=== PATIENT | female | born 1975 | race Hispanic/Latino ===

== ENCOUNTER → 2018-11-07 | Outpatient (CLI) | payer OTHER ==
--- NOTE | 2018-11-07 14:12 | Diagnostic Imaging Report ---
EXAM: CHEST 2 VIEWS, PA and lateral DATE: 11/07/2018 Time stamp on exam: 1:28 PM INDICATION: Pneumonia COMPARISON: None FINDINGS: LINES/TUBES: None LUNGS: Bibasilar areas of stranding opacities; right side greater than left. PLEURA: Bilateral small pleural effusions; left side greater than right HEART AND MEDIASTINUM: Normal size and contour. BONES AND SOFT TISSUES: No acute findings. 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 Signed by: Dr. Pelon Frias DO on 11/07/2018 2:09 PM
== END ==
LOC: RAD 13:09
PROVIDERS: ATTEND Family Medicine
DX: J18.9 Pneumonia, unspecified organism (principal)
CPT/HCPCS: 71046

== ENCOUNTER 2019-02-13 13:34 | Inpatient (IN) | payer OTHER ==
[~2019-02-13] VITALS: Ht 149.9 cm; Wt 63.7 kg
--- OUTSIDE RECORDS SUMMARY | 2019-02-13 13:37 | XMS REPORT ---
[facility] Address Unknown Phone Unavailable Care Team Providers Care Printing Assistant Name Role Phone [place] SHEETS Unavailable Unavailable Payers Payer Name Policy Type Policy Number Effective Date Expiration Date Problems This patient has no known problems. Allergies, Adverse Reactions, Alerts Allergy Name Allergy Type Status Severity Reaction(s) Onset Date Inactive Date Treating Clinician Comments No Known Allergies DA Active U 2018-10-27 00:00:00 Medications This patient has no known medications. Results Test Description Test Time Test Comments Text Results Atomic Results Result Comments CHEST 2 VIEWS 2018-11-07 14:06:00 [place] [address] Patient Name: HEMANTH ARGUELLO MR #: [id number] : 1975 Age/Sex: 43/F Req #: [id number] Adm Physician: Ordered by: KHRIS HAINES, INDIA Saavedra MD Report #: [id number] Location: [facility] Room/Bed: Procedure: [id number] DX/CHEST 2 VIEWS Exam Date: 11/07/18 Exam Time: 1320 REPORT STATUS: Signed EXAM: CHEST 2 VIEWS, PA and lateral DATE: 11/07/2018 Time stamp on exam: 1:28 PM INDICATION: Pneumonia COMPARISON: None FINDINGS: LINES/TUBES: None LUNGS: Bibasilar areas of stranding opacities; right side greater than left. PLEURA: Bilateral small pleural effusions; left side greater than right HEART AND MEDIASTINUM: Normal size and contour. BONES AND SOFT TISSUES: No acute findings. IMPRESSION: Bibasilar opacities inventory representative of multifocal pneumonia with small pleural effusions. Signed by: Dr. Pelon Sanon DO on 11/07/2018 2:09 PM Dictated By: PELON SANON DO 08 Transcribed By: PRIYA on 11/07/181408 COPY TO: [place] SHEETS CBC W/AUTO DIFF 2018-11-01 07:16:00 WHITE BLOOD CELL (test code=WBC) 9.6 K/mm3 4.5-12.5 RED BLOOD CELL (test code=RBC) 2.56 mill/mm3 3.7-5.2 HEMOGLOBIN (test code=HGB) 7.4 gram/dL 11.5-15.5 HEMATOCRIT (test code=HCT) 24.5 % 36.0-46.0 MEAN CELL VOLUME (test code=MCV) 95.7 fL 80-98 MEAN CELL HGB (test code=MCH) 28.9 picogram 27.0-33.0 MEAN CELL HGB CONCETRATION (test code=MCHC) 30.2 gram/dL 33.0-36.0 RED CELL DISTRIBUTION WIDTH (test code=RDW) 14.1 % 11.6-16.2 RED CELL DISTRIBUTION WIDTH SD (test code=RDW-SD) 48.9 fL 37.0-51.0 PLATELET COUNT (test code=PLT) 234 K/mm3 150-450 MEAN PLATELET VOLUME (test code=MPV) 10.1 fL 6.7-11.0 NEUTROPHIL % (test code=NT%) 70.1 % 39.0-69.0 IMMATURE GRANULOCYTE % (test code=IG%) 0.4 % 0.0-5.0 LYMPHOCYTE % (test code=LY%) 20.5 % 25.0-55.0 MONOCYTE % (test code=MO%) 4.8 % 0.0-10.0 EOSINOPHIL % (test code=EO%) 4.0 % 0.0-5.0 BASOPHIL % (test code=BA%) 0.2 % 0.0-1.0 NUCLEATED RBC % (test code=NRBC%) 0.0 % 0-0 NEUTROPHIL # (test code=NT#) 6.75 K/mm3 1.8-7.7 IMMATURE GRANULOCYTE # (test code=IG#) 0.04 x10 3/uL 0-0.03 LYMPHOCYTE # (test code=LY#) 1.98 K/mm3 1.0-5.0 MONOCYTE # (test code=MO#) 0.46 K/mm3 0-0.8 EOSINOPHIL # (test code=EO#) 0.39 K/mm3 0.0-0.5 BASOPHIL # (test code=BA#) 0.02 K/mm3 0.0-0.2 NUCLEATED RBC # (test code=NRBC#) 0.00 K/mm3 0.0-0.1 BASIC METABOLIC [id number] 06:05:00* Test Item Value Reference Range Comments SODIUM (test code=NA) 145 mmol/L 136-145 POTASSIUM (test code=K) 5.1 mmol/L 3.5-5.1 CHLORIDE (test code=CL) 116.0 mmol/L 98-107 CARBON DIOXIDE (test code=CO2) 20.0 mmol/L 21-32 ANION GAP (test code=GAP) 14.1 10-20 GLUCOSE (test code=GLU) 131 mg/dL 74-106 BLOOD UREA NITROGEN (test code=BUN) 70 mg/dL 7-18 GLOMERULAR FILTRATION RATE (test code=GFR) 10 mL/min >=60 Estimated GFR by using Modified MDRD formula.Chronic kidney disease is defined as either kidney damageor GFR <60 mL/min/1.73 m2 for >3 months. CREATININE (test code=CREAT) 4.60 mg/dL 0.55-1.02 Note change in reference range due to change in reagent. BUN/CREATININE RATIO (test code=BUN/CREA) 15.3 10-20 CALCIUM (test code=CA) 7.1 mg/dL 8.5-10.1 BASIC METABOLIC [id number] 06:01:00* Test Item Value Reference Range Comments SODIUM (test code=NA) 145 mmol/L 136-145 POTASSIUM (test code=K) 5.1 mmol/L 3.5-5.1 CHLORIDE (test code=CL) 116.0 mmol/L 98-107 CARBON DIOXIDE (test code=CO2) mmol/L 21-32 ANION GAP (test code=GAP) 10-20 GLUCOSE (test code=GLU) mg/dL 74-106 BLOOD UREA NITROGEN (test code=BUN) mg/dL 7-18 GLOMERULAR FILTRATION RATE (test code=GFR) mL/min >=60 CREATININE (test code=CREAT) mg/dL 0.55-1.02 BUN/CREATININE RATIO (test code=BUN/CREA) 10-20 CALCIUM (test code=CA) 7.1 mg/dL 8.5-10.1 ANTINUCLEAR ANTIBODIES [id number] 04:11:00* Test Item Value Reference Range Comments XANDER SCREEN (test code=ANASCR) Negative Negative Performed At: [facility] [address] [id number] Mancilla MD Ph:[phone] HEPATITIS B [id number] 04:11:00* Test Item Value Reference Range Comments AB HEPATITIS B SURFACE (test code=HBSAB) Non Reactive () Non Reactive: Inconsistent with immunity, less than 10 mIU/mL Reactive: Consistent with immunity, greater than 9.9 mIU/mLPerformed At: [facility] [address] [id number] Mancilla MD Ph:[phone] At: [facility] [id number] Sanjai MD P h:[phone] AG HEPAT B SURF (test code=HBSAG) Negative Negative HEPATITIS B CORE ANTIBODY,TOT (test code=HBCAB) Negative Negative HEPATITIS B CORE ANTIBODY,IGM (test code=HBCMAB) Negative Negative AG HEPATITIS BE (test code=HBEAG) Negative Negative AB HEPATITIS BE (test code=HBEAB) Negative Negative ACUTE HEPATITIS [id number] 04:11:00* Test Item Value Reference Range Comments AB HEPATITIS A IGM (test code=HAVMAB) Negative Negative AB HEPATITIS C (test code=HCVAB) <0.1 0.0-0.9 INFCE Result Units: s/co ratio Negative: < 0.8 Indeterminate: 0.8 - 0.9 Positive: > 0.9 The CDC recommends that a positive HCV antibody result be followed up with a HCV Nucleic Acid Amplification test ([id number]).Performed At: [facility] [id number] Mancilla MD Ph:[phone] NEUTROPHIL CYTOPLASMIC [id number] 04:11:00* Test Item Value Reference Range Comments AB ANTI-NEUTROPHIL CYTOPLASMIC (test code=NEUTCAB) <1:20 titer Neg:<1:20 AB ANTI-NEUTROPHIL CYTO. P (test code=NEUTCAB-P) <1:20 titer Neg:<1:20 The presence of positive fluorescence exhibiting P-ANCA orC-ANCA patterns alone is not specific for the diagnosis ofWegener's Granulomatosis (WG) or microscopic polyangiitis.Decisions about treatment should not be based solely onANCA IFA results. The International ANCA Group Consensusrecommends follow up testing of positive sera with both IL-3 and MPO-ANCA enzyme immunoassays. As many as 5% serumsamples are positive only by EIA. Ref. AM J Clin [id number];111:507-513. ATYPICAL ANCA (test code=ANCACOM) <1:20 titer Neg:<1:20 The atypical pANCA pattern has been observed in asignificant percentage of patients with ulcerative colitis,primary sclerosing cholangitis and autoimmune hepatitis.Performed At: [address] [id number] Sanjai MD Ph:[phone] AB DNA DOUBLE [id number] 04:11:00* Test Item Value Reference Range Comments AB DNA DOUBLE STRAND (test code=DNADSAB) <1 IU/mL 0-9 Negative <5 Equivocal 5 - 9 Positive >9 ANTINUCLEAR ANTIBODIES [id number] 17:10:00* Test Item Value Reference Range Comments XANDER SCREEN (test code=ANASCR) Negative Negative Performed At: [facility] [id number] Kyle L MD Ph:[phone] HEPATITIS B [id number] 17:10:00* Test Item Value Reference Range Comments AB HEPATITIS B SURFACE (test code=HBSAB) NEGATIVE AG HEPAT B SURF (test code=HBSAG) Index Nonreactive HEPATITIS B CORE ANTIBODY,TOT (test code=HBCAB) NEGATIVE HEPATITIS B CORE ANTIBODY,IGM (test code=HBCMAB) NEGATIVE AG HEPATITIS BE (test code=HBEAG) NEGATIVE AB HEPATITIS BE (test code=HBEAB) NEG ACUTE HEPATITIS [id number] 17:10:00* Test Item Value Reference Range Comments AB HEPATITIS A IGM (test code=HAVMAB) Negative Negative AB HEPATITIS C (test code=HCVAB) <0.1 0.0-0.9 INFCE Result Units: s/co ratio Negative: < 0.8 Indeterminate: 0.8 - 0.9 Positive: > 0.9 The CDC recommends that a positive HCV antibody result be followed up with a HCV Nucleic Acid Amplification test ([id number]).Performed At: [facility] [address] [id number] Jose Alejandro Mancilla MD Ph:[phone] NEUTROPHIL CYTOPLASMIC [id number] 17:10:00* Test Item Value Reference Range Comments AB ANTI-NEUTROPHIL CYTOPLASMIC (test code=NEUTCAB) <1:20 titer Neg:<1:20 AB ANTI-NEUTROPHIL CYTO. P (test code=NEUTCAB-P) <1:20 titer Neg:<1:20 The presence of positive fluorescence exhibiting P-ANCA orC-ANCA patterns alone is not specific for the diagnosis ofWegener's Granulomatosis (WG) or microscopic polyangiitis.Decisions about treatment should not be based solely onANCA IFA results. The International ANCA Group Consensusrecommends follow up testing of positive sera with both IL-3 and MPO-ANCA enzyme immunoassays. As many as 5% serumsamples are positive only by EIA. Ref. AM J Clin Rjobve1023;111:507-513. ATYPICAL ANCA (test code=ANCACOM) <1:20 titer Neg:<1:20 The atypical pANCA pattern has been observed in asignificant percentage of patients with ulcerative colitis,primary sclerosing cholangitis and autoimmune hepatitis.Performed At: [facility] [id number] Sanjai MD Ph:[phone] AB DNA DOUBLE [id number] 17:10:00* Test Item Value Reference Range Comments AB DNA DOUBLE STRAND (test code=DNADSAB) <1 IU/mL 0-9 Negative <5 Equivocal 5 - 9 Positive >9 - USG NDL PLACEMENT (Bxg/Asp)2018-10-31 13:38:00 Name: HEMANTH ARGUELLO [facility] : 1975 Age/S: 43 / F [address] Unit #: [id number] Loc: [place] [address] Phys: Charan Phillip MD Acct: [id number] Dis Date: Status: ADM IN PHONE #: [phone] Exam Date: 10/31/2018 1230 FAX #: [phone] Reason: RENAL FAILURE. EXAMS: CPT CODE: [id number] USG NDL PLACEMENT (Bxg/Asp) 77040 REASON FOR EXAM:Acute renal failure PROCEDURE: Ultrasound guided right kidney biopsy Dlrg-hj-fefa approximate procedure time is 45 minutes FINDINGS: After informed consent was obtained, the patient was brought to special procedures and placed supine on the table. The right flank was prepped was draped in the usual fashion. All elements of maximal sterile barrier techniques were applied. Ultrasound demonstrates patency of the basilic vein. The right kidney measured 10.9 x 4.2 cm. Under direct ultrasound guidance, a guiding needle was advanced into the right renal cortex (inferior pole). 3 passes were made with a 20-gauge biopsy gun. The pathologist (Dr. Veras) was present on site for assessment of samples MEDICATIONS: 1 mg of Versed, 50 mcg of fentanyl COMPLICATIONS: None Blood loss: Less than 5 mL IMPRESSION: Technically successful ultrasound-guided core biopsy of a right renal cortex at 1337 Reported and signed by: Charan Phillip M.D. CC: Ariane Priest MD; India Sheets MD Technologist: ONELIA HANNAH RT(R),RDMS Trnakb Date/Time: 10/31/2018 (0662) oMdesto Orig Print D/T: S: 10/31/2018 (6397) Probe: PAGE 1 Signed Report UR SMEAR EOSINOPHIL COUNT 2018-10-31 12:13:00* Test Item Value Reference Range Comments UR SMEAR EOSINOPHIL COUNT (test code=EOSCTU) NONE SEEN per HPF NONE SEEN UR ELECTROPHORESIS VAIBHAV [id number] 12:13:00* Test Item Value Reference Range Comments IMMUNOFIXATION URINE (test code=IMMFIXU) SCREEN () An apparent normal immunofixation pattern. UR TOTAL PROTEIN (test code=PROTEU) 1089.4 mg/dL Not Estab. Results confirmed ondilution. UR SVRCV-3-POVFXZCH (test code=A1GU) 7.8 % () UR UQVMC-1-PVXCQEUS (test code=A2GU) 9.1 % () UR BETA GLOBULIN (test code=BGU) 13.5 % () UR GAMMA GLOBULIN (test code=GGU) 9.5 % () MONOCLONAL SPIKE (test code=MONOSPIKE) Not Observed % Not Observed UR ALBUMIN QUANT (test code=ALBU) 60.0 % () COMPLEMENT [id number] 12:13:00* Test Item Value Reference Range Comments COMPLEMENT C3 (test code=COMC3) mg/dL COMPLEMENT [id number] 12:13:00* Test Item Value Reference Range Comments COMPLEMENT C4 (test code=COMC4) 52 mg/dL 14-44 COMPLEMENT [id number] 12:13:00* Test Item Value Reference Range Comments COMPLEMENT C3 (test code=COMC3) 143 mg/dL 82-167 Performed At: [facility] [address] [id number] Kyle L MD Ph:[phone] COMPLEMENT [id number] 12:13:00* Test Item Value Reference Range Comments COMPLEMENT C4 (test code=COMC4) 52 mg/dL 14-44 ANTINUCLEAR ANTIBODIES [id number] 08:18:00* Test Item Value Reference Range Comments XANDER SCREEN (test code=ANASCR) HEPATITIS B [id number] 08:18:00* Test Item Value Reference Range Comments AB HEPATITIS B SURFACE (test code=HBSAB) NEGATIVE AG HEPAT B SURF (test code=HBSAG) Index Nonreactive HEPATITIS B CORE ANTIBODY,TOT (test code=HBCAB) NEGATIVE HEPATITIS B CORE ANTIBODY,IGM (test code=HBCMAB) NEGATIVE AG HEPATITIS BE (test code=HBEAG) NEGATIVE AB HEPATITIS BE (test code=HBEAB) NEG ACUTE HEPATITIS [id number] 08:18:00* Test Item Value Reference Range Comments AB HEPATITIS A IGM (test code=HAVMAB) Negative Negative AB HEPATITIS C (test code=HCVAB) <0.1 0.0-0.9 INFCE Result Units: s/co ratio Negative: < 0.8 Indeterminate: 0.8 - 0.9 Positive: > 0.9 The CDC recommends that a positive HCV antibody result be followed up with a HCV Nucleic Acid Amplification test ([id number]).Performed At: [facility] [address] [id number] Mancilla MD Ph:[phone] NEUTROPHIL CYTOPLASMIC [id number] 08:18:00* Test Item Value Reference Range Comments AB ANTI-NEUTROPHIL CYTOPLASMIC (test code=NEUTCAB) <1:20 AB ANTI-NEUTROPHIL CYTO. P (test code=NEUTCAB-P) <1:20 ATYPICAL ANCA (test code=ANCACOM) <1:20 AB DNA DOUBLE [id number] 08:18:00* Test Item Value Reference Range Comments AB DNA DOUBLE STRAND (test code=DNADSAB) <1 IU/mL 0-9 Negative <5 Equivocal 5 - 9 Positive >9 ANTINUCLEAR ANTIBODIES [id number] 08:18:00* Test Item Value Reference Range Comments XANDER SCREEN (test code=ANASCR) Negative Negative Performed At: [facility] [address] [place], [place] [id number] Mancilla MD Ph:[phone] HEPATITIS B [id number] 08:18:00* Test Item Value Reference Range Comments AB HEPATITIS B SURFACE (test code=HBSAB) NEGATIVE AG HEPAT B SURF (test code=HBSAG) Index Nonreactive HEPATITIS B CORE ANTIBODY,TOT (test code=HBCAB) NEGATIVE HEPATITIS B CORE ANTIBODY,IGM (test code=HBCMAB) NEGATIVE AG HEPATITIS BE (test code=HBEAG) NEGATIVE AB HEPATITIS BE (test code=HBEAB) NEG ACUTE HEPATITIS [id number] 08:18:00* Test Item Value Reference Range Comments AB HEPATITIS A IGM (test code=HAVMAB) Negative Negative AB HEPATITIS C (test code=HCVAB) <0.1 0.0-0.9 INFCE Result Units: s/co ratio Negative: < 0.8 Indeterminate: 0.8 - 0.9 Positive: > 0.9 The CDC recommends that a positive HCV antibody result be followed up with a HCV Nucleic Acid Amplification test ([id number]).Performed At: [address] [id number] Kyle L MD Ph:[phone] NEUTROPHIL CYTOPLASMIC [id number] 08:18:00* Test Item Value Reference Range Comments AB ANTI-NEUTROPHIL CYTOPLASMIC (test code=NEUTCAB) <1:20 AB ANTI-NEUTROPHIL CYTO. P (test code=NEUTCAB-P) <1:20 ATYPICAL ANCA (test code=ANCACOM) <1:20 AB DNA DOUBLE [id number] 08:18:00* Test Item Value Reference Range Comments AB DNA DOUBLE STRAND (test code=DNADSAB) <1 IU/mL 0-9 Negative <5 Equivocal 5 - 9 Positive >9 AB HEPATITIS [id number] 07:27:00* Test Item Value Reference Range Comments AB HEPATITIS C (test code=HCVAB) <0.1 0.0-0.9 INFCE Result Units: s/co ratio Negative: < 0.8 Indeterminate: 0.8 - 0.9 Positive: > 0.9 The CDC recommends that a positive HCV antibody result be followed up with a HCV Nucleic Acid Amplification test ([id number]).Performed At: [place] [address] [place], [place] [id number] Kyle L MD Ph:[phone] AB HIV 1 07:27:00* Test Item Value Reference Range Comments AB HIV 1 2 (test code=VUA36NC) Nonreactive NonReactive It is recognized that currently available assays for thedetection of antibodies to HIV-1 and/or HIV-2 may notdetect all infected individuals. A negative test result doesnot exclude the possibility of exposure to or infection withHIV. HIV antibodies may be undetectable in some stages ofthe infection and in some clinical conditions. ANTINUCLEAR ANTIBODIES [id number] 07:27:00* Test Item Value Reference Range Comments XANDER SCREEN (test code=ANASCR) HEPATITIS B [id number] 07:27:00* Test Item Value Reference Range Comments AB HEPATITIS B SURFACE (test code=HBSAB) NEGATIVE AG HEPAT B SURF (test code=HBSAG) Index Nonreactive HEPATITIS B CORE ANTIBODY,TOT (test code=HBCAB) NEGATIVE HEPATITIS B CORE ANTIBODY,IGM (test code=HBCMAB) NEGATIVE AG HEPATITIS BE (test code=HBEAG) NEGATIVE AB HEPATITIS BE (test code=HBEAB) NEG ACUTE HEPATITIS [id number] 07:27:00* Test Item Value Reference Range Comments AB HEPATITIS A IGM (test code=HAVMAB) Negative Negative AB HEPATITIS C (test code=HCVAB) <0.1 0.0-0.9 INFCE Result Units: s/co ratio Negative: < 0.8 Indeterminate: 0.8 - 0.9 Positive: > 0.9 The CDC recommends that a positive HCV antibody result be followed up with a HCV Nucleic Acid Amplification test ([id number]).Performed At: [facility] [address] [id number] Jose Alejandro Mancilla MD Ph:[phone] NEUTROPHIL CYTOPLASMIC [id number] 07:27:00* Test Item Value Reference Range Comments AB ANTI-NEUTROPHIL CYTOPLASMIC (test code=NEUTCAB) <1:20 AB ANTI-NEUTROPHIL CYTO. P (test code=NEUTCAB-P) <1:20 ATYPICAL ANCA (test code=ANCACOM) <1:20 AB DNA DOUBLE [id number] 07:27:00* Test Item Value Reference Range Comments AB DNA DOUBLE STRAND (test code=DNADSAB) IUnit/mL 0-9 CBC W/AUTO [id number] 06:18:00* Test Item Value Reference Range Comments WHITE BLOOD CELL (test code=WBC) 7.4 K/mm3 4.5-12.5 RED BLOOD CELL (test code=RBC) 2.77 mill/mm3 3.7-5.2 HEMOGLOBIN (test code=HGB) 8.1 gram/dL 11.5-15.5 HEMATOCRIT (test code=HCT) 26.1 % 36.0-46.0 MEAN CELL VOLUME (test code=MCV) 94.2 fL 80-98 MEAN CELL HGB (test code=MCH) 29.2 picogram 27.0-33.0 MEAN CELL HGB CONCETRATION (test code=MCHC) 31.0 gram/dL 33.0-36.0 RED CELL DISTRIBUTION WIDTH (test code=RDW) 14.0 % 11.6-16.2 RED CELL DISTRIBUTION WIDTH SD (test code=RDW-SD) 48.0 fL 37.0-51.0 PLATELET COUNT (test code=PLT) 222 K/mm3 150-450 MEAN PLATELET VOLUME (test code=MPV) 10.1 fL 6.7-11.0 NEUTROPHIL % (test code=NT%) 59.1 % 39.0-69.0 IMMATURE GRANULOCYTE % (test code=IG%) 0.4 % 0.0-5.0 LYMPHOCYTE % (test code=LY%) 25.6 % 25.0-55.0 MONOCYTE % (test code=MO%) 7.3 % 0.0-10.0 EOSINOPHIL % (test code=EO%) 7.3 % 0.0-5.0 BASOPHIL % (test code=BA%) 0.3 % 0.0-1.0 NUCLEATED RBC % (test code=NRBC%) 0.0 % 0-0 NEUTROPHIL # (test code=NT#) 4.34 K/mm3 1.8-7.7 IMMATURE GRANULOCYTE # (test code=IG#) 0.03 x10 3/uL 0-0.03 LYMPHOCYTE # (test code=LY#) 1.88 K/mm3 1.0-5.0 MONOCYTE # (test code=MO#) 0.54 K/mm3 0-0.8 EOSINOPHIL # (test code=EO#) 0.54 K/mm3 0.0-0.5 BASOPHIL # (test code=BA#) 0.02 K/mm3 0.0-0.2 NUCLEATED RBC # (test code=NRBC#) 0.00 K/mm3 0.0-0.1 BASIC METABOLIC [id number] 06:18:00* Test Item Value Reference Range Comments SODIUM (test code=NA) 145 mmol/L 136-145 POTASSIUM (test code=K) 4.6 mmol/L 3.5-5.1 CHLORIDE (test code=CL) 116.0 mmol/L 98-107 CARBON DIOXIDE (test code=CO2) 19.0 mmol/L 21-32 ANION GAP (test code=GAP) 14.6 10-20 GLUCOSE (test code=GLU) 154 mg/dL 74-106 BLOOD UREA NITROGEN (test code=BUN) 62 mg/dL 7-18 GLOMERULAR FILTRATION RATE (test code=GFR) 12 mL/min >=60 Estimated GFR by using Modified MDRD formula.Chronic kidney disease is defined as either kidney damageor GFR <60 mL/min/1.73 m2 for >3 months. CREATININE (test code=CREAT) 4.20 mg/dL 0.55-1.02 Note change in reference range due to change in reagent. BUN/CREATININE RATIO (test code=BUN/CREA) 14.7 10-20 CALCIUM (test code=CA) 6.8 mg/dL 8.5-10.1 BASIC METABOLIC [id number] 06:12:00* Test Item Value Reference Range Comments SODIUM (test code=NA) 145 mmol/L 136-145 POTASSIUM (test code=K) 4.6 mmol/L 3.5-5.1 CHLORIDE (test code=CL) 116.0 mmol/L 98-107 CARBON DIOXIDE (test code=CO2) mmol/L 21-32 ANION GAP (test code=GAP) 10-20 GLUCOSE (test code=GLU) mg/dL 74-106 BLOOD UREA NITROGEN (test code=BUN) mg/dL 7-18 GLOMERULAR FILTRATION RATE (test code=GFR) mL/min >=60 CREATININE (test code=CREAT) mg/dL 0.55-1.02 BUN/CREATININE RATIO (test code=BUN/CREA) 10-20 CALCIUM (test code=CA) mg/dL 8.5-10.1 FE W/TOTAL IRON BINDING CAP.2018-10-30 11:49:00* Test Item Value Reference Range Comments SERUM IRON (test code=IRON) 56 ug/dL 50-175 TOTAL IRON BINDING CAPACITY (test code=TIBC) 192 mcg/dL 250-450 IRON SATURATION (test code=FESAT) 29.17 % 13-45 [id number] 11:49:00* Test Item Value Reference Range Comments FERRITIN (test code=INOCENTE) 65 ng/mL 8-388 CBC W/AUTO [id number] 09:57:00* Test Item Value Reference Range Comments WHITE BLOOD CELL (test code=WBC) 7.4 K/mm3 4.5-12.5 RED BLOOD CELL (test code=RBC) 2.89 mill/mm3 3.7-5.2 HEMOGLOBIN (test code=HGB) 8.4 gram/dL 11.5-15.5 HEMATOCRIT (test code=HCT) 26.9 % 36.0-46.0 MEAN CELL VOLUME (test code=MCV) 93.1 fL 80-98 MEAN CELL HGB (test code=MCH) 29.1 picogram 27.0-33.0 MEAN CELL HGB CONCETRATION (test code=MCHC) 31.2 gram/dL 33.0-36.0 RED CELL DISTRIBUTION WIDTH (test code=RDW) 14.2 % 11.6-16.2 RED CELL DISTRIBUTION WIDTH SD (test code=RDW-SD) 47.8 fL 37.0-51.0 PLATELET COUNT (test code=PLT) 242 K/mm3 150-450 MEAN PLATELET VOLUME (test code=MPV) 10.4 fL 6.7-11.0 NEUTROPHIL % (test code=NT%) 61.2 % 39.0-69.0 IMMATURE GRANULOCYTE % (test code=IG%) 0.4 % 0.0-5.0 LYMPHOCYTE % (test code=LY%) 25.1 % 25.0-55.0 MONOCYTE % (test code=MO%) 6.5 % 0.0-10.0 EOSINOPHIL % (test code=EO%) 6.5 % 0.0-5.0 BASOPHIL % (test code=BA%) 0.3 % 0.0-1.0 NUCLEATED RBC % (test code=NRBC%) 0.0 % 0-0 NEUTROPHIL # (test code=NT#) 4.52 K/mm3 1.8-7.7 IMMATURE GRANULOCYTE # (test code=IG#) 0.03 x10 3/uL 0-0.03 LYMPHOCYTE # (test code=LY#) 1.85 K/mm3 1.0-5.0 MONOCYTE # (test code=MO#) 0.48 K/mm3 0-0.8 EOSINOPHIL # (test code=EO#) 0.48 K/mm3 0.0-0.5 BASOPHIL # (test code=BA#) 0.02 K/mm3 0.0-0.2 NUCLEATED RBC # (test code=NRBC#) 0.00 K/mm3 0.0-0.1 MANUAL DIFF REQUIRED (test code=MDIFF) NO BASIC METABOLIC [id number] 08:32:00* Test Item Value Reference Range Comments SODIUM (test code=NA) 143 mmol/L 136-145 POTASSIUM (test code=K) 4.6 mmol/L 3.5-5.1 CHLORIDE (test code=CL) 115.0 mmol/L 98-107 CARBON DIOXIDE (test code=CO2) 19.0 mmol/L 21-32 ANION GAP (test code=GAP) 13.6 10-20 GLUCOSE (test code=GLU) 163 mg/dL 74-106 BLOOD UREA NITROGEN (test code=BUN) 58 mg/dL 7-18 GLOMERULAR FILTRATION RATE (test code=GFR) 11 mL/min >=60 Estimated GFR by using Modified MDRD formula.Chronic kidney disease is defined as either kidney damageor GFR <60 mL/min/1.73 m2 for >3 months. CREATININE (test code=CREAT) 4.30 mg/dL 0.55-1.02 Note change in reference range due to change in reagent. BUN/CREATININE RATIO (test code=BUN/CREA) 13.6 10-20 CALCIUM (test code=CA) 6.4 mg/dL 8.5-10.1 Results called to [id number] by NEERAJ 10/30/18 0829Critical results verified and read back by Nurse? Y [id number] 08:32:00* Test Item Value Reference Range Comments PHOSPHORUS (test code=PHOS) 5.8 mg/dL 2.5-4.9 CALCIUM [id number] 08:32:00* Test Item Value Reference Range Comments CALCIUM IONIZED (test code=BRIONNA) 0.99 mmol/L 1.12-1.32 BASIC METABOLIC [id number] 08:26:00* Test Item Value Reference Range Comments SODIUM (test code=NA) 143 mmol/L 136-145 POTASSIUM (test code=K) 4.6 mmol/L 3.5-5.1 CHLORIDE (test code=CL) 115.0 mmol/L 98-107 CARBON DIOXIDE (test code=CO2) mmol/L 21-32 ANION GAP (test code=GAP) 10-20 GLUCOSE (test code=GLU) mg/dL 74-106 BLOOD UREA NITROGEN (test code=BUN) mg/dL 7-18 GLOMERULAR FILTRATION RATE (test code=GFR) mL/min >=60 CREATININE (test code=CREAT) mg/dL 0.55-1.02 BUN/CREATININE RATIO (test code=BUN/CREA) 10-20 CALCIUM (test code=CA) mg/dL 8.5-10.1 [id number] 08:26:00* Test Item Value Reference Range Comments PHOSPHORUS (test code=PHOS) mg/dL 2.5-4.9 CALCIUM [id number] 08:26:00* Test Item Value Reference Range Comments CALCIUM IONIZED (test code=BRIONNA) 0.99 mmol/L 1.12-1.32 BASIC METABOLIC [id number] 08:14:00* Test Item Value Reference Range Comments SODIUM (test code=NA) 143 mmol/L 136-145 POTASSIUM (test code=K) 4.6 mmol/L 3.5-5.1 CHLORIDE (test code=CL) 115.0 mmol/L 98-107 CARBON DIOXIDE (test code=CO2) mmol/L 21-32 ANION GAP (test code=GAP) 10-20 GLUCOSE (test code=GLU) mg/dL 74-106 BLOOD UREA NITROGEN (test code=BUN) mg/dL 7-18 GLOMERULAR FILTRATION RATE (test code=GFR) mL/min >=60 CREATININE (test code=CREAT) mg/dL 0.55-1.02 BUN/CREATININE RATIO (test code=BUN/CREA) 10-20 CALCIUM (test code=CA) mg/dL 8.5-10.1 [id number] 08:14:00* Test Item Value Reference Range Comments PHOSPHORUS (test code=PHOS) mg/dL 2.5-4.9 CALCIUM [id number] 08:14:00* Test Item Value Reference Range Comments CALCIUM IONIZED (test code=BRIONNA) mmol/L 1.12-1.32 CBC W/AUTO [id number] 13:29:00* Test Item Value Reference Range Comments WHITE BLOOD CELL (test code=WBC) 7.4 K/mm3 4.5-12.5 RED BLOOD CELL (test code=RBC) 2.96 mill/mm3 3.7-5.2 HEMOGLOBIN (test code=HGB) 8.5 gram/dL 11.5-15.5 HEMATOCRIT (test code=HCT) 28.4 % 36.0-46.0 MEAN CELL VOLUME (test code=MCV) 95.9 fL 80-98 MEAN CELL HGB (test code=MCH) 28.7 picogram 27.0-33.0 MEAN CELL HGB CONCETRATION (test code=MCHC) 29.9 gram/dL 33.0-36.0 RED CELL DISTRIBUTION WIDTH (test code=RDW) 14.5 % 11.6-16.2 RED CELL DISTRIBUTION WIDTH SD (test code=RDW-SD) 50.6 fL 37.0-51.0 PLATELET COUNT (test code=PLT) 242 K/mm3 150-450 MEAN PLATELET VOLUME (test code=MPV) 10.3 fL 6.7-11.0 NEUTROPHIL % (test code=NT%) 61.6 % 39.0-69.0 IMMATURE GRANULOCYTE % (test code=IG%) 0.3 % 0.0-5.0 LYMPHOCYTE % (test code=LY%) 24.2 % 25.0-55.0 MONOCYTE % (test code=MO%) 6.6 % 0.0-10.0 EOSINOPHIL % (test code=EO%) 6.9 % 0.0-5.0 BASOPHIL % (test code=BA%) 0.4 % 0.0-1.0 NUCLEATED RBC % (test code=NRBC%) 0.0 % 0-0 NEUTROPHIL # (test code=NT#) 4.59 K/mm3 1.8-7.7 IMMATURE GRANULOCYTE # (test code=IG#) 0.02 x10 3/uL 0-0.03 LYMPHOCYTE # (test code=LY#) 1.80 K/mm3 1.0-5.0 MONOCYTE # (test code=MO#) 0.49 K/mm3 0-0.8 EOSINOPHIL # (test code=EO#) 0.51 K/mm3 0.0-0.5 BASOPHIL # (test code=BA#) 0.03 K/mm3 0.0-0.2 NUCLEATED RBC # (test code=NRBC#) 0.00 K/mm3 0.0-0.1 MANUAL DIFF REQUIRED (test code=MDIFF) NO, ONLY SCAN NEEDED DIFFERENTIAL [id number] 13:29:00* Test Item Value Reference Range Comments STAIN ACCEPTABILITY (test code=STN ACCEPTABLE) STAIN ACCEPTABLE HYPOCHROMIA (test code=HYPO) 1+ POIKILOCYTOSIS (test code=POIK) 1+ ANISOCYTOSIS (test code=ANISO) 1+ PLATELET ESTIMATE (test code=PLTEST) ADEQUATE PLATELET MORPHOLOGY (test code=PLTMORPH) NORMAL CALCIUM [id number] 08:44:00* Test Item Value Reference Range Comments CALCIUM IONIZED (test code=BRIONNA) 1.00 mmol/L 1.12-1.32 COMMENTS TO SPINNERET CLEANER: DO ON BLOOD IN LAB FROM THIS MORNINGSPECIMEN COMMENTS: DO ON BLOOD IN LAB FROM THIS MORNINGPROTHROMBIN TIME 2018-10-29 07:57:00* Test Item Value Reference Range Comments PROTHROMBIN TIME PATIENT (test code=PTP) 12.6 seconds 9.0-14.0 INTERNATIONAL NORMAL RATIO (test code=INR) 1.0 0.8-1.2 The therapeutic range for oral anticoagulant therapy formost indications is an international normalized ratio (INR)of between 2.0 and 3.0. The recommended therapeutic INRrange for various clinical situations is listed below: Clinical Situation INR range Pulmonary e mbolism treatment (2.0-3.0)Venous thrombosis treatmentVenous thrombosis prophylaxis (high risk surgery)Prevention of systemic embolism from: Acute myocardial infarction Valvular heart disease Atrial fibrillation Mechanical prosthetic heart valves (2.5-3.5) IS PATIENT ON ANTICOAGULANTS? NTHROMBOPLASTIN TIME [id number] 07:57:00* Test Item Value Reference Range Comments THROMBOPLASTIN TIME PARTIAL (test code=PTT) 32.3 seconds 25.0-36.5 IS PATIENT ON ANTICOAGULANTS? NBASIC METABOLIC [id number] 07:34:00* Test Item Value Reference Range Comments SODIUM (test code=NA) 145 mmol/L 136-145 POTASSIUM (test code=K) 4.3 mmol/L 3.5-5.1 CHLORIDE (test code=CL) 116.0 mmol/L 98-107 CARBON DIOXIDE (test code=CO2) 19.0 mmol/L 21-32 ANION GAP (test code=GAP) 14.3 10-20 GLUCOSE (test code=GLU) 179 mg/dL 74-106 BLOOD UREA NITROGEN (test code=BUN) 55 mg/dL 7-18 GLOMERULAR FILTRATION RATE (test code=GFR) 12 mL/min >=60 Estimated GFR by using Modified MDRD formula.Chronic kidney disease is defined as either kidney damageor GFR <60 mL/min/1.73 m2 for >3 months. CREATININE (test code=CREAT) 4.20 mg/dL 0.55-1.02 Note change in reference range due to change in reagent. BUN/CREATININE RATIO (test code=BUN/CREA) 13.0 10-20 CALCIUM (test code=CA) 6.3 mg/dL 8.5-10.1 Results called to [id number] by JENNIFER 10/29/18 0733Critical results verified and read back by Nurse? Y HEPATIC FUNCTION [id number] 07:34:00* Test Item Value Reference Range Comments TOTAL PROTEIN (test code=PROT) 5.4 gram/dL 6.4-8.2 ALBUMIN (test code=ALB) 1.7 g/dL 3.4-5.0 GLOBULIN (test code=GLOB) 3.7 gram/dL 2.7-4.2 ALBUMIN/GLOBULIN RATIO (test code=A/G) 0.5 0.75-1.50 BILIRUBIN TOTAL (test code=BILT) 0.20 mg/dL 0.0-1.0 BILIRUBIN DIRECT (test code=BILD) 0.06 mg/dL 0.0-0.20 SGOT/AST (test code=AST) 11 IUnit/L 15-37 SGPT/ALT (test code=ALT) 12 IUnit/L 12-78 ALKALINE PHOSPHATASE TOTAL (test code=ALKP) 68 IUnit/L 45-117 Note change in reference range due to change in reagent. [id number] 07:34:00* Test Item Value Reference Range Comments PHOSPHORUS (test code=PHOS) 5.7 mg/dL 2.5-4.9 [id number] 07:34:00* Test Item Value Reference Range Comments MAGNESIUM (test code=MAG) 2.1 mg/dL 1.8-2.4 CBC W/AUTO [id number] 07:21:00* Test Item Value Reference Range Comments WHITE BLOOD CELL (test code=WBC) 7.4 K/mm3 4.5-12.5 RED BLOOD CELL (test code=RBC) 2.96 mill/mm3 3.7-5.2 HEMOGLOBIN (test code=HGB) 8.5 gram/dL 11.5-15.5 HEMATOCRIT (test code=HCT) 28.4 % 36.0-46.0 MEAN CELL VOLUME (test code=MCV) 95.9 fL 80-98 MEAN CELL HGB (test code=MCH) 28.7 picogram 27.0-33.0 MEAN CELL HGB CONCETRATION (test code=MCHC) 29.9 gram/dL 33.0-36.0 RED CELL DISTRIBUTION WIDTH (test code=RDW) 14.5 % 11.6-16.2 RED CELL DISTRIBUTION WIDTH SD (test code=RDW-SD) 50.6 fL 37.0-51.0 PLATELET COUNT (test code=PLT) 242 K/mm3 150-450 MEAN PLATELET VOLUME (test code=MPV) 10.3 fL 6.7-11.0 NEUTROPHIL % (test code=NT%) 61.6 % 39.0-69.0 IMMATURE GRANULOCYTE % (test code=IG%) 0.3 % 0.0-5.0 LYMPHOCYTE % (test code=LY%) 24.2 % 25.0-55.0 MONOCYTE % (test code=MO%) 6.6 % 0.0-10.0 EOSINOPHIL % (test code=EO%) 6.9 % 0.0-5.0 BASOPHIL % (test code=BA%) 0.4 % 0.0-1.0 NUCLEATED RBC % (test code=NRBC%) 0.0 % 0-0 NEUTROPHIL # (test code=NT#) 4.59 K/mm3 1.8-7.7 IMMATURE GRANULOCYTE # (test code=IG#) 0.02 x10 3/uL 0-0.03 LYMPHOCYTE # (test code=LY#) 1.80 K/mm3 1.0-5.0 MONOCYTE # (test code=MO#) 0.49 K/mm3 0-0.8 EOSINOPHIL # (test code=EO#) 0.51 K/mm3 0.0-0.5 BASOPHIL # (test code=BA#) 0.03 K/mm3 0.0-0.2 NUCLEATED RBC # (test code=NRBC#) 0.00 K/mm3 0.0-0.1 MANUAL DIFF REQUIRED (test code=MDIFF) NO, ONLY SCAN NEEDED DIFFERENTIAL [id number] 07:21:00* Test Item Value Reference Range Comments STAIN ACCEPTABILITY (test code=STN ACCEPTABLE) CABOT RINGS (test code=CAB) MORPHOLOGY COMMENT (test code=MOC) PLATELET ESTIMATE (test code=PLTEST) PLATELET MORPHOLOGY (test code=PLTMORPH) CBC W/AUTO [id number] 07:21:00* Test Item Value Reference Range Comments WHITE BLOOD CELL (test code=WBC) 7.4 K/mm3 4.5-12.5 RED BLOOD CELL (test code=RBC) 2.96 mill/mm3 3.7-5.2 HEMOGLOBIN (test code=HGB) 8.5 gram/dL 11.5-15.5 HEMATOCRIT (test code=HCT) 28.4 % 36.0-46.0 MEAN CELL VOLUME (test code=MCV) 95.9 fL 80-98 MEAN CELL HGB (test code=MCH) 28.7 picogram 27.0-33.0 MEAN CELL HGB CONCETRATION (test code=MCHC) 29.9 gram/dL 33.0-36.0 RED CELL DISTRIBUTION WIDTH (test code=RDW) 14.5 % 11.6-16.2 RED CELL DISTRIBUTION WIDTH SD (test code=RDW-SD) 50.6 fL 37.0-51.0 PLATELET COUNT (test code=PLT) 242 K/mm3 150-450 MEAN PLATELET VOLUME (test code=MPV) 10.3 fL 6.7-11.0 NEUTROPHIL % (test code=NT%) 61.6 % 39.0-69.0 IMMATURE GRANULOCYTE % (test code=IG%) 0.3 % 0.0-5.0 LYMPHOCYTE % (test code=LY%) 24.2 % 25.0-55.0 MONOCYTE % (test code=MO%) 6.6 % 0.0-10.0 EOSINOPHIL % (test code=EO%) 6.9 % 0.0-5.0 BASOPHIL % (test code=BA%) 0.4 % 0.0-1.0 NUCLEATED RBC % (test code=NRBC%) 0.0 % 0-0 NEUTROPHIL # (test code=NT#) 4.59 K/mm3 1.8-7.7 IMMATURE GRANULOCYTE # (test code=IG#) 0.02 x10 3/uL 0-0.03 LYMPHOCYTE # (test code=LY#) 1.80 K/mm3 1.0-5.0 MONOCYTE # (test code=MO#) 0.49 K/mm3 0-0.8 EOSINOPHIL # (test code=EO#) 0.51 K/mm3 0.0-0.5 BASOPHIL # (test code=BA#) 0.03 K/mm3 0.0-0.2 NUCLEATED RBC # (test code=NRBC#) 0.00 K/mm3 0.0-0.1 MANUAL DIFF REQUIRED (test code=MDIFF) NO, ONLY SCAN NEEDED DIFFERENTIAL [id number] 07:21:00* Test Item Value Reference Range Comments STAIN ACCEPTABILITY (test code=STN ACCEPTABLE) CABOT RINGS (test code=CAB) MORPHOLOGY COMMENT (test code=MOC) PLATELET ESTIMATE (test code=PLTEST) PLATELET MORPHOLOGY (test code=PLTMORPH) CBC W/AUTO [id number] 07:21:00* Test Item Value Reference Range Comments WHITE BLOOD CELL (test code=WBC) 7.4 K/mm3 4.5-12.5 RED BLOOD CELL (test code=RBC) 2.96 mill/mm3 3.7-5.2 HEMOGLOBIN (test code=HGB) 8.5 gram/dL 11.5-15.5 HEMATOCRIT (test code=HCT) 28.4 % 36.0-46.0 MEAN CELL VOLUME (test code=MCV) 95.9 fL 80-98 MEAN CELL HGB (test code=MCH) 28.7 picogram 27.0-33.0 MEAN CELL HGB CONCETRATION (test code=MCHC) 29.9 gram/dL 33.0-36.0 RED CELL DISTRIBUTION WIDTH (test code=RDW) 14.5 % 11.6-16.2 RED CELL DISTRIBUTION WIDTH SD (test code=RDW-SD) 50.6 fL 37.0-51.0 PLATELET COUNT (test code=PLT) 242 K/mm3 150-450 MEAN PLATELET VOLUME (test code=MPV) 10.3 fL 6.7-11.0 NEUTROPHIL % (test code=NT%) 61.6 % 39.0-69.0 IMMATURE GRANULOCYTE % (test code=IG%) 0.3 % 0.0-5.0 LYMPHOCYTE % (test code=LY%) 24.2 % 25.0-55.0 MONOCYTE % (test code=MO%) 6.6 % 0.0-10.0 EOSINOPHIL % (test code=EO%) 6.9 % 0.0-5.0 BASOPHIL % (test code=BA%) 0.4 % 0.0-1.0 NUCLEATED RBC % (test code=NRBC%) 0.0 % 0-0 NEUTROPHIL # (test code=NT#) 4.59 K/mm3 1.8-7.7 IMMATURE GRANULOCYTE # (test code=IG#) 0.02 x10 3/uL 0-0.03 LYMPHOCYTE # (test code=LY#) 1.80 K/mm3 1.0-5.0 MONOCYTE # (test code=MO#) 0.49 K/mm3 0-0.8 EOSINOPHIL # (test code=EO#) 0.51 K/mm3 0.0-0.5 BASOPHIL # (test code=BA#) 0.03 K/mm3 0.0-0.2 NUCLEATED RBC # (test code=NRBC#) 0.00 K/mm3 0.0-0.1 MANUAL DIFF REQUIRED (test code=MDIFF) NO, ONLY SCAN NEEDED DIFFERENTIAL [id number] 07:21:00* Test Item Value Reference Range Comments STAIN ACCEPTABILITY (test code=STN ACCEPTABLE) MORPHOLOGY COMMENT (test code=MOC) PLATELET ESTIMATE (test code=PLTEST) PLATELET MORPHOLOGY (test code=PLTMORPH) CBC W/AUTO [id number] 07:21:00* Test Item Value Reference Range Comments WHITE BLOOD CELL (test code=WBC) 7.4 K/mm3 4.5-12.5 RED BLOOD CELL (test code=RBC) 2.96 mill/mm3 3.7-5.2 HEMOGLOBIN (test code=HGB) 8.5 gram/dL 11.5-15.5 HEMATOCRIT (test code=HCT) 28.4 % 36.0-46.0 MEAN CELL VOLUME (test code=MCV) 95.9 fL 80-98 MEAN CELL HGB (test code=MCH) 28.7 picogram 27.0-33.0 MEAN CELL HGB CONCETRATION (test code=MCHC) 29.9 gram/dL 33.0-36.0 RED CELL DISTRIBUTION WIDTH (test code=RDW) 14.5 % 11.6-16.2 RED CELL DISTRIBUTION WIDTH SD (test code=RDW-SD) 50.6 fL 37.0-51.0 PLATELET COUNT (test code=PLT) 242 K/mm3 150-450 MEAN PLATELET VOLUME (test code=MPV) 10.3 fL 6.7-11.0 NEUTROPHIL % (test code=NT%) 61.6 % 39.0-69.0 IMMATURE GRANULOCYTE % (test code=IG%) 0.3 % 0.0-5.0 LYMPHOCYTE % (test code=LY%) 24.2 % 25.0-55.0 MONOCYTE % (test code=MO%) 6.6 % 0.0-10.0 EOSINOPHIL % (test code=EO%) 6.9 % 0.0-5.0 BASOPHIL % (test code=BA%) 0.4 % 0.0-1.0 NUCLEATED RBC % (test code=NRBC%) 0.0 % 0-0 NEUTROPHIL # (test code=NT#) 4.59 K/mm3 1.8-7.7 IMMATURE GRANULOCYTE # (test code=IG#) 0.02 x10 3/uL 0-0.03 LYMPHOCYTE # (test code=LY#) 1.80 K/mm3 1.0-5.0 MONOCYTE # (test code=MO#) 0.49 K/mm3 0-0.8 EOSINOPHIL # (test code=EO#) 0.51 K/mm3 0.0-0.5 BASOPHIL # (test code=BA#) 0.03 K/mm3 0.0-0.2 NUCLEATED RBC # (test code=NRBC#) 0.00 K/mm3 0.0-0.1 MANUAL DIFF REQUIRED (test code=MDIFF) NO, ONLY SCAN NEEDED DIFFERENTIAL [id number] 07:21:00* Test Item Value Reference Range Comments STAIN ACCEPTABILITY (test code=STN ACCEPTABLE) CABOT RINGS (test code=CAB) MORPHOLOGY COMMENT (test code=MOC) PLATELET ESTIMATE (test code=PLTEST) PLATELET MORPHOLOGY (test code=PLTMORPH) AB HEPATITIS [id number] 21:11:00* Test Item Value Reference Range Comments AB HEPATITIS C (test code=HCVAB) NEGATIVE AB HIV 1 21:11:00* Test Item Value Reference Range Comments AB HIV 1 2 (test code=RQE32QI) Nonreactive NonReactive It is recognized that currently available assays for thedetection of antibodies to HIV-1 and/or HIV-2 may notdetect all infected individuals. A negative test result doesnot exclude the possibility of exposure to or infection withHIV. HIV antibodies may be undetectable in some stages ofthe infection and in some clinical conditions. - [employer] RETRO [id number] 16:56:00 Name: HEMANTH ARGUELLO [facility] : 1975 Age/S: 43 / F [address] [facility] Unit #: [id number] Loc: ELADIO Serna [address] Phys: Raymundo Angel MD Acct: [id number] Dis Date: Status: ADM IN PHONE #: [phone] Exam Date: 10/28/2018 1607 FAX #: [phone] Reason: renal failure EXAMS: CPT CODE: [id number] [employer] RETRO LTD [id number] REASON FOR EXAM: renal failure EXAM ORDER DATE: 10/28/2018 11:31 AM Attending M.D.: Raymundo Angel MD PROCEDURE: - US RETRO LTD FINDINGS: The right kidney measures 9.9 x 4.1 x 3.8 cm. The cross-sectional thickness of the right renal cortex measured 1.0 cm. The left kidney measures 10.8 x 5.0 x 4.3 cm. The cross- sectional thickness of the left renal cortex measured 1.0 cm. There is no evidence of hydronephrosis. There is no evidence of nephrolithiasis. There is no evidence of renal mass. The urinary bladder is unremarkable and bilateral ureteral jets are visualized. Small bilateral pleural effusions are present. IMPRESSION: Sonographically unremarkable kidneys. Bilateral pleural effusions. at 1656 Reported and signed by: Ritesh Barrera MD CC: Raymundo Angel MD; Ariane Priest MD; India Sheets MD Technologist: SATHYA GOTTI [facility] Date/Time: 10/28/2018 (1655) [id number] Orig Print D/T: S: 10/28/2018 (1464) Probe: PAGE 1 Signed Report RHEUMATOID FACTOR [id number] 16:39:00* Test Item Value Reference Range Comments RHEUMATOID FACTOR SCREEN (test code=RA) NEGATIVE NEGATIVE UR SMEAR EOSINOPHIL [id number] 16:32:00* Test Item Value Reference Range Comments UR SMEAR EOSINOPHIL COUNT (test code=EOSCTU) NONE SEEN per HPF NONE SEEN UR ELECTROPHORESIS VAIBHAV [id number] 16:32:00* Test Item Value Reference Range Comments IMMUNOFIXATION URINE (test code=IMMFIXU) SCREEN NEGATIVE UR TOTAL PROTEIN (test code=PROTEU) mg/dL 0.0-15.0 UR [id number] (test code=A1GU) % UR ELLBE-1-TVSURZMZ (test code=A2GU) % UR BETA GLOBULIN (test code=BGU) % UR GAMMA GLOBULIN (test code=GGU) % MONOCLONAL SPIKE (test code=MONOSPIKE) % Not Observe UR ALBUMIN QUANT (test code=ALBU) % NOT ESTABL. PARATHYROID HORMONE [id number] 16:32:00* Test Item Value Reference Range Comments PARATHYROID HORMONE INTACT (test code=PARAI) 306.10 pgram/mL 8.4-88 B-TYPE NATRIURETIC [id number] 15:36:00* Test Item Value Reference Range Comments B-TYPE NATRIURETIC PEPTIDE (test code=BNP) 1620.38 pgram/mL 0-100 - XR CHEST 1 [id number] 10:44:00 FAX: Atiya Kapoor [phone] [place]: B St: ADM FAX: Ariane Priest MD FAX: India Hendrix MD [phone] Name: HEMANTH ARGUELLO [facility] : 1975 Age/S: 43/F [address] Unit #: [id number] Loc: V.30[address] [place] [address] Phys: Atiya Yeager MD Acct: [id number] Dis Date: Status: ADM IN PH ONE #: [phone] Exam Date: 10/28/2018 0850 FAX #: [phone] Reason: PNEUMONIA CHF EXAMS: CPT CODE: [id number] XR CHEST 1 V 60740 REASON FOR EXAM: PNEUMONIA CHF Exam Order Date: 10/28/2018 6:00 AM Ordering M.D.: Atiya Yeager MD PROCEDURE: - XR CHEST 1 V COMPARISON: 2 view chest x-ray the previous morning FINDINGS: There are opacities projecting over the mid to lower lungs bilaterally which are grossly unchanged from the prior exam when accou nting for potential differences in patient positioning. These opacities ma y represent any combination of layering effusions, pulmonary edema, aspiration, atelectasis, and pneumonia. Additionally there are prominent r eticulations in the upper lungs which may represent pulmonary edema and/or pneumonia. The cardiomediastinal silhouette is prominent. Musculo skeletal findings are within normal limits. IMPRES ROOPA: Findings of CHF with pleural effusions bilaterally. Superimposed p neumonia cannot be excluded. These findings are grossly stable when acco unting for potential differences in patient positioning. Heidi ctronically Signed by Ritesh Barrera MD on 10/28/2018 at 1044 Reported and signed by: Ritesh Barrera MD CC: Atiya Yeager MD; Ariane Alva MD; India Sheets MD Technologist: DG CHAN RT (R) Trnscrd Date/Time/By: 10/28/2018 (1047) : By: [email or web address] Orig Print D/T: S: 10/28/2018 (8764) PAGE 1 Signed Report PROCALCITONIN (PCT) 2018-10-28 07:50:00* Test Item Value Reference Range Comments PROCALCITONIN (PCT) (test code=PROCAL) 0.09 ng/ml Concentration Interpretation (ng/mL) <0.51 Sepsis is not likely. Local bacterial infection is possible. (LOW RISK for progression to Sepsis) 0.51 - 2.00 Sepsis is possible, but other conditions are known to elevate PCT as well. (MODERATE RISK for progression to Sepsis) > 2.00 Sepsis is likely, unless other causes are known. (HIGH RISK for progression to Severe Sepsis or Septic Shock) 10.00 High likelihood of Severe Sepsis or Septic or higher Shock. *Increased PCT levels may not always be related to systemic bacterial infection.*Low PCT levels do not automatically exclude the presence of bacterial infection.*All results should be interpreted taking into account the patients history. BASIC METABOLIC [id number] 07:37:00* Test Item Value Reference Range Comments SODIUM (test code=NA) 146 mmol/L 136-145 POTASSIUM (test code=K) 4.7 mmol/L 3.5-5.1 CHLORIDE (test code=CL) 118.0 mmol/L 98-107 CARBON DIOXIDE (test code=CO2) 18.0 mmol/L 21-32 ANION GAP (test code=GAP) 14.7 10-20 GLUCOSE (test code=GLU) 135 mg/dL 74-106 BLOOD UREA NITROGEN (test code=BUN) 51 mg/dL 7-18 GLOMERULAR FILTRATION RATE (test code=GFR) 13 mL/min >=60 Estimated GFR by using Modified MDRD formula.Chronic kidney disease is defined as either kidney damageor GFR <60 mL/min/1.73 m2 for >3 months. CREATININE (test code=CREAT) 3.90 mg/dL 0.55-1.02 Note change in reference range due to change in reagent. BUN/CREATININE RATIO (test code=BUN/CREA) 13.0 10-20 CALCIUM (test code=CA) 6.4 mg/dL 8.5-10.1 Results called to [id number] by OSKAR 10/28/18 0737Critical results verified and read back by Nurse? Y HEPATIC FUNCTION [id number] 07:10:00* Test Item Value Reference Range Comments TOTAL PROTEIN (test code=PROT) 5.7 gram/dL 6.4-8.2 ALBUMIN (test code=ALB) 1.7 g/dL 3.4-5.0 GLOBULIN (test code=GLOB) 4.0 gram/dL 2.7-4.2 ALBUMIN/GLOBULIN RATIO (test code=A/G) 0.4 0.75-1.50 BILIRUBIN TOTAL (test code=BILT) 0.20 mg/dL 0.0-1.0 BILIRUBIN DIRECT (test code=BILD) < 0.05 mg/dL 0.0-0.20 SGOT/AST (test code=AST) 13 IUnit/L 15-37 SGPT/ALT (test code=ALT) 17 IUnit/L 12-78 ALKALINE PHOSPHATASE TOTAL (test code=ALKP) 76 IUnit/L 45-117 Note change in reference range due to change in reagent. THYROID STIMULATING [id number] 07:10:00* Test Item Value Reference Range Comments THYROID STIMULATING HORMONE (test code=TSH) 3.930 uIU/mL 0.36-3.74 TSH REFERENCE RANGES: EUTHYROID: 0.35 - 4.3 mIU/mL HYPO : > 5.5 mIU/mL HYPER : < 0.35 mIU/mL LIPID PROFILE (CORONARY RISK)2018-10-28 07:09:00* Test Item Value Reference Range Comments TRIGLYCERIDES (test code=TRIG) 165 mg/dL 20-150 CHOLESTEROL (test code=CHOL) 195 mg/dL 0-200 CHOLESTEROL/HDL RATIO (test code=CHOLHDL) 4.0 RATIO 0-4.9 RISK ASSOCIATED WITH CHOL/HDL RATIOS: Risk Male Female1/2 AVERAGE 3.43 3.27AVERAGE 4.97 4.442X AVERAGE 9.55 7.053X AVERAGE 23.39 11.04 REFERENCE VALUE IS RELATED TO RISK LEVELS ASRECOMMENDED BY THE MARK. HEART, LUNG, AND BLOOD INST. HDL CHOLESTEROL (test code=HDL) 46 mg/dL 40-60 LIPOPROTEIN LDL (test code=LDL) 129 mg/dL 100-129 RN PERSONNEL, CONTACT PHYSICIAN IMMEDIATELY IF THIS IS A STROKE, AMI OR CAROTID STENOSIS PATIENT WHEN THE LDL >100 (1ST OCCURENCE, THIS ADMISSION) Reference Interval: mg/dL mmol/L Optimal <100 <2.6Near/above optimal 100-129 2.6- 3.3Borderline High 130-159 3.4-4.1High 160-189 4.1-4.9Very High >=190 >=4.9=========This LDL result is a direct measurement.========= [id number] 07:09:00* Test Item Value Reference Range Comments TROPONIN-I (test code=TROPI) 0.045 ng/mL 0-0.045 [id number] 06:31:00* Test Item Value Reference Range Comments GLYCOSYLATED HEMOGLOBIN (HA1C) (test code=GLYHGB) 7.5 % HbA1 4.8-6.0 ESTIMATED AVERAGE GLUCOSE (test code=EAG) 169 MG/DL CBC W/AUTO [id number] 06:18:00* Test Item Value Reference Range Comments WHITE BLOOD CELL (test code=WBC) 9.2 K/mm3 4.5-12.5 RED BLOOD CELL (test code=RBC) 3.14 mill/mm3 3.7-5.2 HEMOGLOBIN (test code=HGB) 9.2 gram/dL 11.5-15.5 HEMATOCRIT (test code=HCT) 28.8 % 36.0-46.0 MEAN CELL VOLUME (test code=MCV) 91.7 fL 80-98 MEAN CELL HGB (test code=MCH) 29.3 picogram 27.0-33.0 MEAN CELL HGB CONCETRATION (test code=MCHC) 31.9 gram/dL 33.0-36.0 RED CELL DISTRIBUTION WIDTH (test code=RDW) 14.6 % 11.6-16.2 RED CELL DISTRIBUTION WIDTH SD (test code=RDW-SD) 49.0 fL 37.0-51.0 PLATELET COUNT (test code=PLT) 253 K/mm3 150-450 MEAN PLATELET VOLUME (test code=MPV) 10.2 fL 6.7-11.0 NEUTROPHIL % (test code=NT%) 72.4 % 39.0-69.0 IMMATURE GRANULOCYTE % (test code=IG%) 0.4 % 0.0-5.0 LYMPHOCYTE % (test code=LY%) 19.8 % 25.0-55.0 MONOCYTE % (test code=MO%) 4.8 % 0.0-10.0 EOSINOPHIL % (test code=EO%) 2.3 % 0.0-5.0 BASOPHIL % (test code=BA%) 0.3 % 0.0-1.0 NUCLEATED RBC % (test code=NRBC%) 0.0 % 0-0 NEUTROPHIL # (test code=NT#) 6.67 K/mm3 1.8-7.7 IMMATURE GRANULOCYTE # (test code=IG#) 0.04 x10 3/uL 0-0.03 LYMPHOCYTE # (test code=LY#) 1.83 K/mm3 1.0-5.0 MONOCYTE # (test code=MO#) 0.44 K/mm3 0-0.8 EOSINOPHIL # (test code=EO#) 0.21 K/mm3 0.0-0.5 BASOPHIL # (test code=BA#) 0.03 K/mm3 0.0-0.2 NUCLEATED RBC # (test code=NRBC#) 0.00 K/mm3 0.0-0.1 URINALYSIS [id number] 23:35:00* Test Item Value Reference Range Comments UA COLOR (test code=COLU) STRAW YELLOW UA APPEARANCE (test code=APPU) CLEAR CLEAR UA GLUCOSE DIPSTICK (test code=DGLUU) 150 (1+) mg/dL NEGATIVE UA BILIRUBIN DIPSTICK (test code=BILU) NEGATIVE mg/dL NEGATIVE UA KETONE DIPSTICK (test code=KETU) Negative mg/dL NEGATIVE UA SPECIFIC GRAVITY (test code=SGU) 1.016 1.001-1.035 UA BLOOD DIPSTICK (test code=YOSEF) Negative NEGATIVE UA PH DIPSTICK (test code=BETTY) 6.0 5.0-8.0 UA PROTEIN DIPSTICK (test code=PROU) >500 (3+) mg/dL NEGATIVE UA UROBILINIOGEN DIPSTICK (test code=URO) NEGATIVE mg/dL NEGATIVE UA NITRITE DIPSTICK (test code=GERRY) NEGATIVE NEGATIVE UA LEUKOCYTE ESTERASE W REFLEX (test code=LEUUR) NEGATIVE NEGATIVE UA WBC (test code=WBCU) 6-10 #/HPF 0-5 UA RBC (test code=RBCU) 3-5 #/HPF 0-5 UA EPITHELIAL CELLS (test code=EPIU) FEW per HPF FEW UA BACTERIA (test code=BACU) FEW #/HPF NONE UA MUCUS (test code=MUCU) FEW #/LPF FEW Urine Source? [facility] PROTEIN [id number] 23:35:00* Test Item Value Reference Range Comments UR PROTEIN RANDOM (test code=PROTU) 1072.9 mg/dL 0.0-11.9 Protein levels may be falsely elevated in patients withelevated level of aminoglycoside antibiotics in CSF and inhighly concentrated urine specimens. If false elevation issuspected, contact lab for alternated testing technique. Urine Source? [facility] CREATININE [id number] 23:35:00* Test Item Value Reference Range Comments UR CREATININE RANDOM (test code=CREATU) 57.0 mg/dL 30-125 Urine Source? [facility]IN[facility] [id number] 23:08:00* Test Item Value Reference Range Comments UA COLOR (test code=COLU) STRAW YELLOW UA APPEARANCE (test code=APPU) CLEAR CLEAR UA GLUCOSE DIPSTICK (test code=DGLUU) 150 (1+) mg/dL NEGATIVE UA BILIRUBIN DIPSTICK (test code=BILU) NEGATIVE mg/dL NEGATIVE UA KETONE DIPSTICK (test code=KETU) Negative mg/dL NEGATIVE UA SPECIFIC GRAVITY (test code=SGU) 1.016 1.001-1.035 UA BLOOD DIPSTICK (test code=YOSEF) Negative NEGATIVE UA PH DIPSTICK (test code=BETTY) 6.0 5.0-8.0 UA PROTEIN DIPSTICK (test code=PROU) >500 (3+) mg/dL NEGATIVE UA UROBILINIOGEN DIPSTICK (test code=URO) NEGATIVE mg/dL NEGATIVE UA NITRITE DIPSTICK (test code=GERRY) NEGATIVE NEGATIVE UA LEUKOCYTE ESTERASE W REFLEX (test code=LEUUR) NEGATIVE NEGATIVE UA WBC (test code=WBCU) 6-10 #/HPF 0-5 UA RBC (test code=RBCU) 3-5 #/HPF 0-5 UA EPITHELIAL CELLS (test code=EPIU) FEW per HPF FEW UA BACTERIA (test code=BACU) FEW #/HPF NONE UA MUCUS (test code=MUCU) FEW #/LPF FEW Urine Source? Clean CatchUR PROTEIN [id number] 23:08:00* Test Item Value Reference Range Comments UR PROTEIN RANDOM (test code=PROTU) mg/dL 0.0-11.9 Urine Source? Clean CatchUR CREATININE [id number] 23:08:00* Test Item Value Reference Range Comments UR CREATININE RANDOM (test code=CREATU) mg/dL 30-125 Urine Source? Clean CatchBASIC METABOLIC [id number] 16:43:00* Test Item Value Reference Range Comments SODIUM (test code=NA) 139 mmol/L 136-145 POTASSIUM (test code=K) 5.6 mmol/L 3.5-5.1 CHLORIDE (test code=CL) 116.0 mmol/L 98-107 CARBON DIOXIDE (test code=CO2) 16.0 mmol/L 21-32 ANION GAP (test code=GAP) 12.6 10-20 GLUCOSE (test code=GLU) 108 mg/dL 74-106 BLOOD UREA NITROGEN (test code=BUN) 45 mg/dL 7-18 GLOMERULAR FILTRATION RATE (test code=GFR) 13 mL/min >=60 Estimated GFR by using Modified MDRD formula.Chronic kidney disease is defined as either kidney damageor GFR <60 mL/min/1.73 m2 for >3 months. CREATININE (test code=CREAT) 3.70 mg/dL 0.55-1.02 Note change in reference range due to change in reagent. BUN/CREATININE RATIO (test code=BUN/CREA) 12.2 10-20 CALCIUM (test code=CA) 6.5 mg/dL 8.5-10.1 BASIC METABOLIC [id number] 16:39:00* Test Item Value Reference Range Comments SODIUM (test code=NA) 139 mmol/L 136-145 POTASSIUM (test code=K) 5.6 mmol/L 3.5-5.1 CHLORIDE (test code=CL) 116.0 mmol/L 98-107 CARBON DIOXIDE (test code=CO2) mmol/L 21-32 ANION GAP (test code=GAP) 10-20 GLUCOSE (test code=GLU) mg/dL 74-106 BLOOD UREA NITROGEN (test code=BUN) mg/dL 7-18 GLOMERULAR FILTRATION RATE (test code=GFR) mL/min >=60 CREATININE (test code=CREAT) mg/dL 0.55-1.02 BUN/CREATININE RATIO (test code=BUN/CREA) 10-20 CALCIUM (test code=CA) mg/dL 8.5-10.1 B-TYPE NATRIURETIC [id number] 10:52:00* Test Item Value Reference Range Comments B-TYPE NATRIURETIC PEPTIDE (test code=BNP) 4060 pg/mL 0-100 - XR CHEST 2 [id number] 10:09:00 Name: HEMANTH ARGUELLO [facility] : 1975 Age/S:43 /F [address] [facility] Unit#:[id number] Loc: [place] [address] Phys: Atiya Yeager MD Dis Date: PHONE #: [phone] Status: REG ER FAX #: [phone] Exam Date: 10/27/2018 Reason: cough and shortness of breath EXAMS: CPT CODE: [id number] XR CHEST 2 V 18350 HISTORY: Cough and shortness of breath. COMPARISON: None available. AP and lateral view of the chest: Small left and moderate right effusion with compressive lower lobe atelectasis on the left with patchy infiltrate. Cardiomegaly. IMPRESSION: Patchy left lower lobe infiltrate and moderate left effusion and subsegmental atelectasis. at 1009 Reported and signed by: Alphonse Santana M.D. CC: Atiya Yeager MD Technologist: USMAN MAYO RT(R),CT Trnscrpt Data: 10/27/2018 (6784) [email or web address] Orig Print D/T: S: 10/27/2018 (0338) PAGE 1 Signed Report [id number] 10:06:00* Test Item Value Reference Range Comments LIPASE (test code=LIP) 198 U/L 128-270 [id number] 10:06:00* Test Item Value Reference Range Comments MAGNESIUM (test code=MAG) 1.8 mg/dL 1.6-2.3 [id number] 10:06:00* Test Item Value Reference Range Comments CKMB (test code=CKMBT) 8.2 ng/mL 0.0-5.0 [id number] 10:06:00* Test Item Value Reference Range Comments TROPONIN-I (test code=TROPI) 0.03 ng/mL 0.00-0.056 LACTIC [id number] 09:47:00* Test Item Value Reference Range Comments LACTIC ACID (test code=LACT) 1.0 MMOL/L 0.4-1.9 SPECIMEN 4+ HEMOLYSIS BASIC METABOLIC [id number] 09:39:00* Test Item Value Reference Range Comments SODIUM (test code=NA) 140 mmol/L 135-148 POTASSIUM (test code=K) 5.6 mmol/L 3.5-5.1 CHLORIDE (test code=CL) 110 mmol/L 101-109 CARBON DIOXIDE (test code=CO2) 19.6 mmol/L 21-32 ANION GAP (test code=GAP) 16 mmol/L 10-20 GLUCOSE (test code=GLU) 145 mg/dL 74-106 BLOOD UREA NITROGEN (test code=BUN) 45 mg/dL 3-21 GLOMERULAR FILTRATION RATE (test code=GFR) 13 mL/min >=60 Estimated GFR by using Modified MDRD formula.Chronic kidney disease is defined as either kidney damageor GFR <60 mL/min/1.73 m2 for >3 months. CREATININE (test code=CREAT) 3.77 mg/dL 0.55-1.3 BUN/CREATININE RATIO (test code=BUN/CREA) 11.9 10-20 CALCIUM (test code=CA) 6.8 mg/dL 8.4-10.2 CBC W/AUTO [id number] 09:28:00* Test Item Value Reference Range Comments WHITE BLOOD CELL (test code=WBC) 9.1 K/mm3 4.5-12.5 RED BLOOD CELL (test code=RBC) 3.59 mill/mm3 3.7-5.2 HEMOGLOBIN (test code=HGB) 10.6 gram/dL 11.5-15.5 HEMATOCRIT (test code=HCT) 32.5 % 36.0-46.0 MEAN CELL VOLUME (test code=MCV) 90.5 fL 80-98 MEAN CELL HGB (test code=MCH) 29.5 picogram 27.0-33.0 MEAN CELL HGB CONCETRATION (test code=MCHC) 32.6 gram/dL 33.0-36.0 RED CELL DISTRIBUTION WIDTH (test code=RDW) 14.5 % 11.6-16.2 RED CELL DISTRIBUTION WIDTH SD (test code=RDW-SD) 46.4 fL 39.1-52.0 PLATELET COUNT (test code=PLT) 274 K/mm3 150-450 MEAN PLATELET VOLUME (test code=MPV) 10.0 fL 6.7-11.0 NEUTROPHIL % (test code=NT%) 76.9 % 39.0-69.0 LYMPHOCYTE % (test code=LY%) 15.6 % 25.0-55.0 MONOCYTE % (test code=MO%) 4.1 % 0.0-10.0 EOSINOPHIL % (test code=EO%) 3.2 % 0.0-5.0 BASOPHIL % (test code=BA%) 0.2 % 0.0-1.0 NEUTROPHIL # (test code=NT#) 7.03 K/mm3 1.8-7.7 LYMPHOCYTE # (test code=LY#) 1.42 K/mm3 1.0-5.0 MONOCYTE # (test code=MO#) 0.37 K/mm3 0-0.8 EOSINOPHIL # (test code=EO#) 0.29 K/mm3 0.0-0.5 BASOPHIL # (test code=BA#) 0.02 K/mm3 0.0-0.2 MANUAL DIFF REQUIRED (test code=MDIFF) NO
--- NOTE | 2019-02-13 14:57 | Diagnostic Imaging Report ---
EXAMINATION: PA and lateral views of the chest. COMPARISON: 11/07/2018 CLINICAL HISTORY: Shortness of breath DISCUSSION: Lungs are reasonably well inflated. Moderate left and small right pleural effusion with adjacent basal airspace opacities, likely passive atelectasis. Cardiomediastinal contour is obscured. Prominence of the perihilar pulmonary interstitium. No acute osseous abnormality. IMPRESSION: Findings compatible with interstitial pulmonary edema, moderate left and small right pleural effusion with probable passive atelectasis of the lower lung zones. Signed by: Dr. Larry Rucker M.D. on 02/13/2019 2:54 PM
[2019-02-13] MEDS ORDERED: CLONIDINE HCL 0.1 MG TAB PO ONE (15:15)
[2019-02-13 15:30] LABS: BASOPHILS % 0.4 % (0.0-1.0); EOSINOPHILS # (AUTO) 0.2 (0.0-0.4); EOSINOPHILS % 2.7 % (0.0-6.0); HEMATOCRIT 32.5 % (34.2-44.1); HEMOGLOBIN 10.6 g/dL (12.0-16.0); LYMPHOCYTES # (AUTO) 1.7 (1.0-3.2); LYMPHOCYTES % 19.9 % (18.0-39.1); MEAN CORPUSCULAR HGB CONC 32.6 g/dL (31-35); MEAN CORPUSCULAR VOLUME 88.8 fL (81-99); MONOCYTES # (AUTO) 0.4 (0.2-0.8); MONOCYTES % 4.6 % (4.4-11.3); PLATELET COUNT 179 x10e3/uL (140-360); RED BLOOD COUNT 3.66 x10e6/uL (3.6-5.1); RED CELL DISTRIBUTION WIDTH 16.8 % (11.7-14.4)
[2019-02-13 15:46] LABS: INR 1.02; PARTIAL THROMBOPLASTIN TIME 31.9 seconds (23.8-35.5); PROTHROMBIN TIME 13.9 seconds (11.9-14.5)
[2019-02-13 15:55] LABS: ALBUMIN 2.5 g/dL (3.5-5.0); ALBUMIN/GLOBULIN RATIO 0.6 (0.8-2.0); ANION GAP 17.6 mmol/L (8-16); CALCIUM 7.9 mg/dL (8.4-10.2); CREATININE, SERUM 4.72 mg/dL (0.57-1.11)
[2019-02-13 15:59] LABS: POTASSIUM 5.6 mmol/L (3.5-5.1)
[2019-02-13 16:04] LABS: CREATINE KINASE MB 8.6 ng/mL (0-5.0)
[2019-02-13 16:41] LABS: CLARITY,URINE SL CLOUDY (CLEAR); COLOR,URINE YELLOW (YELLOW); LEUKOCYTE ESTERASE ,URINE NEGATIVE (NEGATIVE); NITRITE,URINE NEGATIVE (NEGATIVE); PROTEIN,URINE DIPSTICK 2+ (NEGATIVE)
[2019-02-13 16:42] LABS: BILIRUBIN,URINE NEGATIVE (NEGATIVE); KETONES,URINE NEGATIVE (NEGATIVE); URINE UROBILINOGEN 0.2 mg/dL (0.2 - 1)
[2019-02-13 16:48] LABS: BACTERIA,URINE MODERATE /HPF; EPITHELIAL CELLS,URINE MANY /LPF; TRANSITIONAL EPI CELLS,URINE MODERATE
[2019-02-13] MEDS ORDERED: LORAZEPAM INJ 2 MG/ML VIAL IV ONE (17:45)
[2019-02-13] MEDS ORDERED: SODIUM BICARBONATE 8.4% INJ 50 ML SYR IV STA (17:50)
[2019-02-13] MEDS ORDERED: SOD POLYSTYRENE SULFONATE SUSP 15 GM/60 ML BTL PO ONE (18:00)
[2019-02-13] MEDS ORDERED: ONDANSETRON HCL INJ 2MG/ML 2ML 2 MG/ML VIAL IV PRN (18:00)
[2019-02-13] MEDS ORDERED: FUROSEMIDE INJ 10 MG/ML 4 ML VIAL IV SCH (18:00)
[2019-02-13] MEDS ORDERED: DEXTROSE 50% SYRINGE 50 ML IV ONE (18:00)
[2019-02-13] MEDS ORDERED: DEXTROSE 50% SYRINGE 50 ML IV PRN (18:00)
[2019-02-13] MEDS ORDERED: INSULIN REGULAR, HUMAN 100 UNIT/1 ML 3ML VIAL IV ONE (18:00)
[2019-02-13] MEDS ORDERED: NITROGLYCERIN/D5W 200 MCG/ML 250 ML IV SCH (18:15)
[2019-02-13] MEDS ORDERED: NITROGLYCERIN/D5W 200 MCG/ML 250 ML ONE (18:21)
[2019-02-13] MEDS ORDERED: BUMETANIDE INJ 0.25MG/ML 4ML VIAL IV ONE (18:23)
[2019-02-13] MEDS ORDERED: HYDRALAZINE HCL 20 MG/ML VIAL ONE (18:25)
--- NOTE | 2019-02-13 18:29 | NUR ---
TIA WARP SPOOLER CALLED [facility] AND SPOKE WITH OLVIN Barlow AND INFORMED PATIENT NEEDS EMERGENCT DIALYSIS PER DR. SIU.
[2019-02-13] MEDS ORDERED: BUMETANIDE 10 MG in SODIUM CHLORIDE 0.9% 100 ML 60 ML IV SCH ×2 (18:30→20:15)
[2019-02-13] MEDS: FAMOTIDINE 20 MG/2 ML VIAL IV SCH (18:38)
[2019-02-13] MEDS ORDERED: HYDRALAZINE HCL 20 MG/ML VIAL IV STA (18:38)
[2019-02-13 19:20] VITALS: BP 165/92
[2019-02-13] MEDS ORDERED: SODIUM CHLORIDE 0.9% 1000ML 2,000 ML ONE (19:28)
[2019-02-13] MEDS ORDERED: MANNITOL 25% 12.5GM/50ML 100 ML ONE (19:28)
[2019-02-13] MEDS ORDERED: MANNITOL 25% 12.5GM/50ML 50 ML ONE (19:31)
--- NOTE | 2019-02-13 19:38 | Diagnostic Imaging Report ---
RENAL ULTRASOUND TECHNIQUE: Ultrasound evaluation of the KIDNEYS. Color Doppler evaluation was utilized to supplement the evaluation. HISTORY: Shortness of breath, acute kidney injury COMPARISON: None available. DISCUSSION: RIGHT KIDNEY: The right kidney measures 10 cm in length. The cortex measures 1 cm in thickness. Parenchyma is within normal limits. No hydronephrosis or solid mass lesions. LEFT KIDNEY: The left kidney measures 9 cm in length. The cortex measures 1.1 cm in thickness. Parenchyma is within normal limits. No hydronephrosis or solid mass lesions. BLADDER: Decompressed via a Youssef catheter. PROSTATE: Normal prostate less than 30 cc IMPRESSION: No sonographic abnormality. Signed by: Dr. Omar Veras D.O., M.M.M. on 02/13/2019 7:35 PM
--- NOTE | 2019-02-13 19:50 | NUR ---
pt does not know home meds. med list requested from spouse. spouse states will call family to obtain list.
[2019-02-13 20:00] VITALS: BP 137/87
--- NOTE | 2019-02-13 20:00 | NUR ---
DR BENNETT PAGED TO CLARIFY BUMEX DRIP ORDER. DR MABRY SUPERVISING [employer]OR [employer] REEL. ORDERED TO DECREASE RATE TO 0.25MG/HR.
[2019-02-13] MEDS ORDERED: SODIUM CHLORIDE 0.9% 1000ML 2,000 ML IV PRN (20:30)
[2019-02-13] MEDS ORDERED: HEPARIN SOD (PORCINE) 1000 UNIT/ML SDV IV PRN (20:30)
[2019-02-13] MEDS ORDERED: MANNITOL 25% 12.5GM/50 ML VIAL IV PRN (20:30)
[2019-02-13] MEDS ORDERED: ALBUMIN 25% 12.5GM 0.25 GM/ML BTL IV PRN (20:30)
[2019-02-13] MEDS ORDERED: SODIUM CHLORIDE 0.9% 250ML 500 ML IV PRN (20:30)
[2019-02-13 21:00] VITALS: BP 80/55
[2019-02-13] MEDS: INSULIN LISPRO 100 UNIT/1 ML 3ML VIAL SQ SCH (21:00)
[2019-02-13 22:00] VITALS: BP 122/91
[2019-02-13 23:00] VITALS: BP 147/86
[2019-02-13 23:55] LABS: CREATINE KINASE MB 7.2 ng/mL (0-5.0)
[2019-02-13 23:59] VITALS: BP 147/86
[2019-02-14] VITALS (25 sets, daily range): BP systolic 114–189; BP diastolic 69–106
[2019-02-14 00:58] LABS: CREATINE KINASE MB 6.1 ng/mL (0-5.0)
--- NOTE | 2019-02-14 01:25 | Consultation ---
DATE OF CONSULTATION: HISTORY OF PRESENT ILLNESS: The patient is seen in the emergency room. This is a 43-year-old lady, who speaks Taiwanese only. I had a bedside nurse, who is both fluent in Taiwanese and Thai and is helping me in translate. She apparently presented to the hospital with severe shortness of breath, which for the last 2 days. She denies any fever and chills. She is unable to lay down. She is sitting up, has obvious paroxysmal nocturnal dyspnea. She is in severe dyspneic state. Currently on nasal cannula oxygen with blood pressure 199/122, heart rate of 96. She initially denied any history of kidney failure, but then said many years ago, she was told that her kidney function is not normal. She has longstanding history of diabetes. She claims and right now, she also has a history of hypertension, unclear what home medications she is on. At the moment, she is on famotidine 20 mg IV q.12. She has insulin ordered. She was given an amp of bicarb, dextrose, insulin and Kayexalate has been ordered. She has also been started on furosemide 60 IV q.8. ALLERGIES: SHE DENIES ANY DRUG ALLERGIES. SOCIAL HISTORY: Denies smoking or alcohol use. PHYSICAL EXAMINATION: GENERAL: On exam, awake, alert, sitting up quite dyspneic. VITAL SIGNS: Oxygen saturation 94% on nasal cannula. HEENT: Head appears relatively pale. NECK: Neck veins are not distended. LUNGS: Decreased air entry in both lower zone with impaired percussion noted and scattered rales in midzone bilateral. HEART: S3 gallop. ABDOMEN: Otherwise soft and nontender. EXTREMITIES: Flags 4, lower extremity 2+ edema. IMPRESSION: 1. Severe congestive heart failure. 2. Pulmonary edema. 3. Fluid overload with acute hypoxia. PLAN: Plan to order a stat blood gas and have a Youssef catheter placed. ER physician had IR place a temporary dialysis catheter, which was extremely appropriate step to take. We will give hydralazine 10 mg IV, start nitroglycerin drip to titrate to keep systolic between 160-170. We will give Bumex 3 mg IV and then start Bumex at 1 mg an hour. Continuous drip. Dialysis nurse has been paged stat, awaiting the call back, so the patient can get stat dialysis. Blood gas pending. May need BiPAP. We will consult Dr. Benson, Pulmonary. Her labs shows a white count 8.2 and hemoglobin 10.6. Potassium 5.6, bicarbonate 16, BUN 74, and creatinine 4.7. Troponin I 0.015 and BNP 2959. Overall, the patient's condition is critical. MD CLAUDINE Walker/REY /[id number]
--- NOTE | 2019-02-14 02:10 | Consultation ---
DATE OF CONSULTATION: Pulmonary Consultation Stat consult was called for respiratory failure. CHIEF COMPLAINT: Shortness of breath for two days. HISTORY OF PRESENT ILLNESS: Ms. Clemons is a 43-year-old female, primarily Hungarian speaking, came in with worsening shortness of breath, with anasarca and swelling of the leg and worsening shortness of breath for two days. The patient has a history of diabetes and hypertension. She denies any complaints of chest pain, nausea, or vomiting. She is confused. She has episodes of confusion per the nurses. REVIEW OF SYSTEMS: GENERAL: Denies any fever or chills. HEAD: Denies any head trauma. ENT: Denies any earaches. CVS: chest pain, shortness of breath. The rest of the review of systems are negative except as in HPI. PAST MEDICAL HISTORY: Hypertension and diabetes. FAMILY AND SOCIAL HISTORY: She does not smoke. Does not drink. PHYSICAL EXAMINATION: VITAL SIGNS: Temperature 96.8, pulse of 82, blood pressure 192/106. HEENT: Head is atraumatic, normocephalic. CHEST: Markedly reduced air entry bilaterally. JVD is present. ABDOMEN: Soft, nontender. EXTREMITIES: Bilateral 4+ pedal edema. LABORATORY DATA: White count of 8000, hemoglobin 10.6, platelets 179. Chemistry; creatinine is 4.72, BUN 74, potassium 5.6, bicarb 16, BNP 2959. Chest x-ray showing evidence of findings compatible with pulmonary edema moderate and small pleural effusion. ASSESSMENT AND PLAN: 1. Ms. Clemons is a 43-year-old female with severe respiratory distress. I will start the patient on BiPAP. I had a detailed discussion with Dr. Jung. Hemodialysis will be done, stat hemodialysis catheter has been placed. The patient will be on BiPAP for now and moved to ICU. 2. Nitroglycerin infusion for uncontrolled hypertension. 3. If the respiratory distress is not improved and she remains hypoxic and tachypneic then may need intubation. Thank you for this consult. Critical care time spent 50 minutes. MD KAITLIN Jules/REY /[id number]
[2019-02-14 05:01] LABS: BASOPHILS % 0.4 % (0.0-1.0); EOSINOPHILS # (AUTO) 0.2 (0.0-0.4); EOSINOPHILS % 2.7 % (0.0-6.0); HEMATOCRIT 24.2 % (34.2-44.1); HEMOGLOBIN 7.6 g/dL (12.0-16.0); LYMPHOCYTES # (AUTO) 1.4 (1.0-3.2); LYMPHOCYTES % 24.4 % (18.0-39.1); MEAN CORPUSCULAR HEMOGLOBIN 27.8 pg (28-32); MEAN CORPUSCULAR HGB CONC 31.4 g/dL (31-35); MEAN CORPUSCULAR VOLUME 88.6 fL (81-99); MONOCYTES # (AUTO) 0.4 (0.2-0.8); MONOCYTES % 6.8 % (4.4-11.3); NEUTROPHILS # (AUTO) 3.7 (2.1-6.9); NEUTROPHILS % 65.5 % (38.7-80.0); PLATELET COUNT 137 x10e3/uL (140-360); RED BLOOD COUNT 2.73 x10e6/uL (3.6-5.1); RED CELL DISTRIBUTION WIDTH 16.7 % (11.7-14.4)
[2019-02-14 05:27] LABS: ALBUMIN 2.4 g/dL (3.5-5.0); ALBUMIN/GLOBULIN RATIO 0.8 (0.8-2.0); ANION GAP 14.2 mmol/L (8-16); CALCIUM 7.8 mg/dL (8.4-10.2); CHOL/HDL RATIO 4.1 (3.0-3.6); CREATININE, SERUM 3.34 mg/dL (0.57-1.11); POTASSIUM 4.2 mmol/L (3.5-5.1)
[2019-02-14] MEDS: FAMOTIDINE 20 MG/2 ML VIAL IV SCH (06:13)
[2019-02-14 06:26] LABS: ABG HCO3 16 mmol/L (23-28); ABG PCO2 36 mmHg (41-51); ABG PH 7.26 (7.31-7.41); ABG PO2 189 mmHg (80-105)
[2019-02-14] MEDS ORDERED: SODIUM CHLORIDE 0.9% 250ML 250 ML IV NR (06:45)
[2019-02-14] MEDS: INSULIN LISPRO 100 UNIT/1 ML 3ML VIAL SQ SCH ×4 (07:30→21:35)
[2019-02-14] MEDS: BUMETANIDE 10 MG in SODIUM CHLORIDE 0.9% 100 ML 60 ML IV SCH ×2 (07:40→20:10)
[2019-02-14 08:49] LABS: CREATINE KINASE MB 4.8 ng/mL (0-5.0)
[2019-02-14] MEDS ORDERED: AZITHROMYCIN 250MG/NS 100 ML 100 ML IV ONE (09:15)
[2019-02-14] MEDS ORDERED: CEFTRIAXONE SOD 1 GM/NS 50 ML 50 ML IV NR (09:15)
--- NOTE | 2019-02-14 09:31 | NUR ---
ECHO completed, spoke with Dr Benson, LEISA obtained, HD RN to bedside beginning HD.
[2019-02-14] MEDS ORDERED: CARVEDILOL 3.125 MG TAB PO SCH (11:00)
[2019-02-14 11:05] LABS: ABG HCO3 24 mmol/L (23-28); ABG PCO2 38 mmHg (41-51); ABG PH 7.41 (7.31-7.41); ABG PO2 164 mmHg (80-105)
[2019-02-14] MEDS ORDERED: ONDANSETRON HCL 4 MG ORAL DISINTEGRATING TAB PO PRN (12:30)
[2019-02-14] MEDS: CARVEDILOL 12.5 MG TAB PO SCH ×2 (13:30→20:10)
--- NOTE | 2019-02-14 13:37 | NUR ---
WOUND CARE PUP SCREEN Camilo Score =16 Moderate PUP LOS=14 y/o Age=43F Alternating Pressure Air Mattress and set to patient current weight 143 lbs. HOB < 30 Degrees Patient Position: Left with pillow support. Heels Offloaded with Pillows PATIENT VISIT / SKIN CHECK: -No Pressure Ulcers identified RECOMMENDATION: Continue Moderate PUP Addendum: 02/14/19 at 1337 by Kelvin Duncan RN Amended: Links added.
[2019-02-14] MEDS ORDERED: CLONIDINE HCL 0.1 MG TAB PO SCH (14:00)
[2019-02-14] MEDS: HYDRALAZINE HCL 25 MG TAB PO SCH ×2 (15:48→20:10)
--- NOTE | 2019-02-14 15:50 | NUR ---
Dr Jeannine Jung to bedside. Orders rec'd.
--- NOTE | 2019-02-14 15:54 | NUR ---
Nutrition Screen Note RD Recommendation for Physician: -Continue current diet as ordered Plan of Care: RD following, monitoring for tolerance and adequacy, diet education Nutrition reason for involvement: Diagnosis, Nutrition Risk Trigger MST Primary Diagnose(s): 1. Severe congestive heart failure. 2. Pulmonary edema. 3. Fluid overload with acute hypoxia. PMH: Hypertension and diabetes. Ht: 59in Wt: 143.19lb BMI: 28.9kg/m2 IBW: 95lb RD Assessment: (02/14) Chart reviewed. Labs and meds reviewed. 43yo F, who was admitted for worsening shortness of breath, with anasarca and swelling of the leg. Currently on diuretics. Plan to start HD while in the hospital. Visited pt in the room. Pt reported good appetite with >50% meal intake. No complains of nausea or vomiting. Pt denied any chewing or swallowing difficulty. Pt denied eating less than usual [employer] G[employer]IP[employer]; unknown weight loss hx due to fluid retention. RD offered diet education on CHF; pt and family verbalized understanding. All questions have been answered. Will continue to monitor and follow. Current Diet: renal diabetic diet Malnutrition Evaluation (02/14) The patient does not meet criteria for a specified degree of malnutrition at this time. Will re-evaluate at follow-up as appropriate. Diet Education Needs Assessment: Diet education indicated, pt was agreeable with plan. Learner(s): pt and family Time spent: 15minutes Barriers: No barriers identified. Cultural/Language Modifications: Pt speaks minimal Liberian. Family able to translate. Readiness: Acceptance Method: Handouts, explanation Topics: Heart failure nutrition therapy (fluids, sodium, weight management) Understanding/Compliance: Expect fair understanding/compliance from pt. Will benefit from reinforcement. All questions have been answered. Nutrition Care Level: low Signed: Yeni Landin, MS, RD, LD
--- NOTE | 2019-02-14 17:19 | Consultation ---
DATE OF CONSULTATION: 02/14/2019 Cardiology Consultation REASON FOR CONSULTATION: Heart failure. CHIEF COMPLAINT: Severe dyspnea for the past two days. HISTORY OF PRESENT ILLNESS: Ms. Clemons is a 43-year-old female with past medical history of hypertension, type 2 diabetes diagnosed in 2004, hyperlipidemia, who may have also CKD, is usually followed by Dr. Sheets as an outpatient for her medical needs. She reports a progressively worsening decline in functional capacity over the past two days and reports severe dyspnea and inability to catch her breath at rest and new-onset orthopnea three pillow and just overall not feeling well. She was noted to be in acute hypoxic respiratory failure on admission, was noted to be grossly volume overloaded with acute kidney injury versus end-stage renal progression and a BNP elevated at 2959. Serial cardiac biomarkers revealed a troponin of 0.021, 0.033, 0.061. The patient is currently receiving hemodialysis via right IJ Vas-Cath and reports that she is thankfully feeling much better. She denies any chest pain or tightness or heaviness. She denies any recent illnesses and denies any recent changes in her medications. PAST MEDICAL HISTORY: 1. Hypertension, essential. 2. Type 2 diabetes, diagnosed in 2004. 3. Chronic kidney disease. PAST SURGICAL HISTORY: History of surgery. FAMILY HISTORY: Mother at 69 with diabetic complications. Father in his 80s, also had diabetes. SOCIAL HISTORY: She is a lifelong nonsmoker. Denies any alcohol or illicit drug use. ALLERGIES: NO KNOWN DRUG ALLERGIES. HOME MEDICATIONS: Coreg 25 mg b.i.d., glipizide 10 mg b.i.d., hydralazine 50 mg t.i.d., Hyzaar 100/25 mg daily, Lipitor 40 mg daily, Zetia 10 mg daily. REVIEW OF SYSTEMS: GENERAL: Positive for fatigue, malaise. Denies any fevers or chills. HEENT: No headaches, visual complaints, sore throat, or stuffy nose. RESPIRATORY: Denies any pleuritic chest pain. Has severe exertional dyspnea and dyspnea at rest with nonproductive cough. CARDIOVASCULAR: As per HPI. Denies any subjective palpitations, syncope, or near syncope. GI: Denies any abdominal pain, bright red blood per rectum, melena, hematemesis, nausea, or vomiting. : Does still make urine and kidney disease as noted above. MUSCULOSKELETAL: Positive for some slight leg swelling. No typical claudication. Denies any bryan neuropathy. NEUROLOGIC: Denies any focal weakness, numbness, tingling, seizures, headache, TIA or stroke. Remainder of review of systems is negative, otherwise as mentioned. PHYSICAL EXAMINATION: VITAL SIGNS: Height of 59 inches, weight of 143 pounds, BMI is 28.9. Temperature of 97.2, pulse of 76, blood pressure of 153/92, respiratory rate of 15, and O2 saturation of 100% on 2 L nasal cannula. GENERAL: Well-nourished, well-developed lady, who is currently in no apparent distress at the present time. HEENT: Normocephalic, atraumatic. Pupils are equal, round, and reactive to light. Extraocular movements are intact. Oropharynx is clear. There is a right IJ Vas-Cath in place. CARDIOVASCULAR: Regular rate and rhythm. Normal S1, S2. Soft 1/6 systolic murmur in left lower sternal border. There are no carotid bruits. RESPIRATORY: There are notable decreased bibasilar breath sounds. ABDOMEN: Soft, nontender, and nondistended. Normoactive bowel sounds. No hepatosplenomegaly. BACK: No costovertebral angle tenderness. EXTREMITIES: Warm with diminished pedal pulses. There is trace edema. NEUROLOGIC: Cranial nerves 2 through 12 are intact. Strength seems to be preserved and she appears nonfocal. LABORATORY DATA: White count of 5.6, hemoglobin is 7.6, hematocrit of 24.2, platelets of 137. Sodium 141, potassium of 4.2, chloride 109, bicarb of 22, BUN 42, creatinine of 3.34, glucose of 126, calcium of 7.8. AST 15, ALT 16, alkaline phosphatase 67, total protein 5.3, albumin of 2.4. Lipid profile shows total cholesterol of 161, HDL of 39, LDL of 100. BNP was elevated at 2959. INR is 1.02. UA shows 0 white cells, 2+ protein and 2+ glucose. Hep serologies are pending. Of note, there has been a drop in hemoglobin from 10.6 today to 7.6. Chest x-ray reveals pulmonary edema and moderate left and small right pleural effusion. Renal ultrasound shows no abnormalities. EKG reveals sinus rhythm and nonspecific T-wave inversions in I, aVL, V5, V6. DIAGNOSES: 1. Hypertensive emergency. 2. Acute hypoxic respiratory distress/gross volume overload. 3. Acute kidney injury versus end-stage renal disease progression. 4. Acute decompensated diastolic heart failure symptoms. 5. Acute blood loss anemia, perhaps superimposed anemia of chronic kidney disease. 6. Type 2 diabetes with complications. 7. Hypertension, essential. 8. Hypoalbuminemia. 9. Proteinuria. PLAN/RECOMMENDATIONS: 1. Appreciate primary team and other consultants. 2. We will follow up on echocardiogram to evaluate her LV function. 3. Currently on volume management protocol per Renal service and is getting emergent renal dialysis. 4. We will resume her home medications with the exception of avoiding any potential nephrotoxins which include her PABLO inhibitor therapy. 5. The blood pressure appears to be coming down appropriately and we will gradually monitor her progress. Thank you for this referral. MD ALMA DELIA Hanks/REY /[id number]
--- NOTE | 2019-02-14 19:00 | NUR ---
Bedside report received from Joslyn Bergeron RN. Pt AAOx3 and reports no pain or discomfort at this time, no signs of distress noted at this time. Pt at the bedside, care plan reviewed.
--- NOTE | 2019-02-14 19:45 | NUR ---
Melissa Garcia RN placed pt on bedpan at this time.
[2019-02-15] VITALS (19 sets, daily range): BP systolic 106–160; BP diastolic 60–84
[2019-02-15 05:05] LABS: BASOPHILS % 0.4 % (0.0-1.0); EOSINOPHILS # (AUTO) 0.2 (0.0-0.4); EOSINOPHILS % 3.3 % (0.0-6.0); HEMATOCRIT 29.6 % (34.2-44.1); HEMOGLOBIN 9.8 g/dL (12.0-16.0); LYMPHOCYTES # (AUTO) 1.4 (1.0-3.2); LYMPHOCYTES % 21.3 % (18.0-39.1); MEAN CORPUSCULAR HEMOGLOBIN 29.4 pg (28-32); MEAN CORPUSCULAR HGB CONC 33.1 g/dL (31-35); MEAN CORPUSCULAR VOLUME 88.9 fL (81-99); MONOCYTES # (AUTO) 0.6 (0.2-0.8); MONOCYTES % 8.8 % (4.4-11.3); NEUTROPHILS # (AUTO) 4.4 (2.1-6.9); NEUTROPHILS % 65.9 % (38.7-80.0); PLATELET COUNT 148 x10e3/uL (140-360); RED BLOOD COUNT 3.33 x10e6/uL (3.6-5.1); RED CELL DISTRIBUTION WIDTH 16.3 % (11.7-14.4)
[2019-02-15] MEDS: BUMETANIDE 10 MG in SODIUM CHLORIDE 0.9% 100 ML 60 ML IV SCH (05:19)
[2019-02-15 05:39] LABS: ANION GAP 12.8 mmol/L (8-16); CALCIUM 7.8 mg/dL (8.4-10.2); CREATININE, SERUM 2.98 mg/dL (0.57-1.11); POTASSIUM 3.8 mmol/L (3.5-5.1)
--- NOTE | 2019-02-15 06:13 | Diagnostic Imaging Report ---
Examination: Single AP view of the chest. COMPARISON: Chest 2 views 02/13/2019 INDICATION: Acute renal failure, pulmonary edema IMPRESSION: 1. Lines and Tubes: Interval placement of right-sided IJ catheter with distal tip projecting in the proximal right atrium 2. Lungs are relatively well-inflated. Left retrocardiac density and obscuration of the left hemidiaphragm, likely reflecting left pleural effusion and associated atelectasis, which is decreased since the prior exam. Interval resolution of previously visualized right pleural effusion and atelectasis.. 3. Stable enlargement of the cardiac silhouette. Improved central pulmonary venous congestion and interstitial perihilar pulmonary edema 4. No acute bony abnormalities. Signed by: Dr. Thomas Blount M.D. on 02/15/2019 6:10 AM
[2019-02-15 06:18] LABS: MAGNESIUM 1.9 MG/DL (1.3-2.1); PHOSPHORUS 3.9 MG/DL (2.3-4.7)
--- NOTE | 2019-02-15 07:00 | NUR ---
Bedside report given to Joslyn Bergeron RN. Pt reports no pain or discomfort, no signs of distress noted at this time. Care plan reviewed.
--- NOTE | 2019-02-15 07:08 | Diagnostic Imaging Report ---
Date and Time: 02/13/2019 Procedure: Temporary hemodialysis catheter placement, right internal jugular approach travelift operator: Dr. Rucker Pre-operative diagnosis: Acute kidney injury, hyperkalemia Post-operative diagnosis: Acute kidney injury, hyperkalemia Conscious Sedation: Ativan 1 mg intravenous was administered by emergency center personnel The patient's heart rate and pulse oximetry were continuously monitored by the EC nurse. Blood pressure was monitored at 5 minute intervals. Additional Medications: Lidocaine 1% for local anesthesia Fluoroscopy time: 0.4 minutes Dose-area Product: 1.03 Gycm2. Contrast used: 0 Estimated blood loss: Minimal Blood products administered: None Specimens: None Implants: 13 Finnish 15 cm triple-lumen hemodialysis catheter Complications: No immediate Condition at completion: Guarded Disposition: Returned to ER DISCUSSION: Informed consent was obtained by deaf interpreter and documented in the medical record. The patient was unable to tolerate supine positioning initially secondary to dyspnea, though oxygen saturation remained adequate. After intravenous sedation was administered, the patient was successfully placed in the supine position. The right cervical region was prepped and draped in standard sterile fashion. Sonographic evaluation confirmed patency of the right internal jugular vein, evidenced by compressibility. 1% lidocaine was infiltrated into the skin and subcutaneous tissues for local anesthesia. Then under continuous sonographic guidance, an 18-gauge singlewall needle was used to access the right internal jugular vein. A permanent sonographic image was stored in the medical record. A 0.0 3 5-in. wire was advanced centrally into the IVC under fluoroscopic guidance. The needle was removed over the wire and the tract was dilated. Then a 13 Finnish 15 cmtriple-lumen hi flow central venous catheter was advanced over the wire to full depth. The wire was removed, and the catheter tip was positioned at the superior cavoatrial junction. Each lumen showed adequate bidirectional flow and was flushed with sterile saline. The catheter was secured to the skin with monofilament nylon suture and a sterile dressing was applied. The patient tolerated the procedure well without immediate complication. FINDINGS: Patent right internal jugular vein. IMPRESSION: Successful placement of a 13 Finnish, 15 cm triple-lumen hemodialysis catheter by a right internal jugular approach under sonographic and fluoroscopic guidance. Signed by: Dr. Larry Rucker M.D. on 02/15/2019 7:05 AM
--- NOTE | 2019-02-15 07:08 | Diagnostic Imaging Report ---
Date and Time: 02/13/2019 Procedure: Temporary hemodialysis catheter placement, right internal jugular approach rotary drill operator helper: Dr. Rucker Pre-operative diagnosis: Acute kidney injury, hyperkalemia Post-operative diagnosis: Acute kidney injury, hyperkalemia Conscious Sedation: Ativan 1 mg intravenous was administered by emergency center personnel The patient's heart rate and pulse oximetry were continuously monitored by the EC nurse. Blood pressure was monitored at 5 minute intervals. Additional Medications: Lidocaine 1% for local anesthesia Fluoroscopy time: 0.4 minutes Dose-area Product: 1.03 Gycm2. Contrast used: 0 Estimated blood loss: Minimal Blood products administered: None Specimens: None Implants: 13 Citizen Of [place] 15 cm triple-lumen hemodialysis catheter Complications: No immediate Condition at completion: Guarded Disposition: Returned to ER DISCUSSION: Informed consent was obtained by meteorologist liaison and documented in the medical record. The patient was unable to tolerate supine positioning initially secondary to dyspnea, though oxygen saturation remained adequate. After intravenous sedation was administered, the patient was successfully placed in the supine position. The right cervical region was prepped and draped in standard sterile fashion. Sonographic evaluation confirmed patency of the right internal jugular vein, evidenced by compressibility. 1% lidocaine was infiltrated into the skin and subcutaneous tissues for local anesthesia. Then under continuous sonographic guidance, an 18-gauge singlewall needle was used to access the right internal jugular vein. A permanent sonographic image was stored in the medical record. A 0.0 3 5-in. wire was advanced centrally into the IVC under fluoroscopic guidance. The needle was removed over the wire and the tract was dilated. Then a 13 Citizen [place] 15 cmtriple-lumen hi flow central venous catheter was advanced over the wire to full depth. The wire was removed, and the catheter tip was positioned at the superior cavoatrial junction. Each lumen showed adequate bidirectional flow and was flushed with sterile saline. The catheter was secured to the skin with monofilament nylon suture and a sterile dressing was applied. The patient tolerated the procedure well without immediate complication. FINDINGS: Patent right internal jugular vein. IMPRESSION: Successful placement of a 13 Citizen [place], 15 cm triple-lumen hemodialysis catheter by a right internal jugular approach under sonographic and fluoroscopic guidance. Signed by: Dr. Larry Rucker M.D. on 02/15/2019 7:05 AM
[2019-02-15] MEDS: INSULIN LISPRO 100 UNIT/1 ML 3ML VIAL SQ SCH ×4 (07:30→20:57)
[2019-02-15] MEDS: FAMOTIDINE 20 MG TAB PO SCH (08:15)
[2019-02-15] MEDS: CARVEDILOL 12.5 MG TAB PO SCH ×2 (08:15→20:52)
[2019-02-15] MEDS ORDERED: FAMOTIDINE 20 MG/2 ML VIAL IV SCH (09:00)
[2019-02-15] MEDS: HYDRALAZINE HCL 25 MG TAB PO SCH ×3 (09:00→20:52)
[2019-02-15] MEDS: FUROSEMIDE 40 MG TAB PO SCH (17:51)
--- NOTE | 2019-02-15 18:09 | NUR ---
Per Dr Benson, Dr Govea, Dr Jung, and emely Kwong to transfer patient to Med Surg with telemetry.
--- NOTE | 2019-02-15 18:49 | NUR ---
Patient transferred to [facility] via wheelchair on telemetry. and children to bedside. Due to void after meza removed per Dr Jung's order.
--- NOTE | 2019-02-15 18:56 | NUR ---
Patient received from ICU, settled in her room, VSS, denies any pains, in bed at this time, family in the room, assisted to bed, call light within reach.
--- NOTE | 2019-02-15 19:00 | NUR ---
WALKING ROUNDS PERFORMED, RECEIVED PT SITTING ON SIDE OF BED, AAOX3, RR EVEN AND NON-LABORED, ON RA. NO S/SX OF DISTRESS NOTED. LEFT PT SITTING ON SIDE OF BED, BED IN LOW LOCKED POSITION, SIDE RAILS UPX2, CALL LIGHT AND PHONE WITHIN REACH.
[2019-02-16] VITALS (8 sets, daily range): BP systolic 126–147; BP diastolic 59–68
[2019-02-16 06:13] LABS: BASOPHILS % 0.4 % (0.0-1.0); EOSINOPHILS # (AUTO) 0.2 (0.0-0.4); EOSINOPHILS % 3.1 % (0.0-6.0); HEMATOCRIT 32.8 % (34.2-44.1); HEMOGLOBIN 10.3 g/dL (12.0-16.0); LYMPHOCYTES # (AUTO) 1.8 (1.0-3.2); LYMPHOCYTES % 26.1 % (18.0-39.1); MEAN CORPUSCULAR HEMOGLOBIN 28.7 pg (28-32); MEAN CORPUSCULAR HGB CONC 31.4 g/dL (31-35); MEAN CORPUSCULAR VOLUME 91.4 fL (81-99); MONOCYTES # (AUTO) 0.7 (0.2-0.8); MONOCYTES % 10.5 % (4.4-11.3); NEUTROPHILS # (AUTO) 4.1 (2.1-6.9); NEUTROPHILS % 59.6 % (38.7-80.0); PLATELET COUNT 164 x10e3/uL (140-360); RED BLOOD COUNT 3.59 x10e6/uL (3.6-5.1)
[2019-02-16] MEDS: FUROSEMIDE 40 MG TAB PO SCH ×2 (06:30→17:16)
[2019-02-16 06:44] LABS: ALBUMIN 2.2 g/dL (3.5-5.0); ALBUMIN/GLOBULIN RATIO 0.7 (0.8-2.0); CREATININE, SERUM 2.96 mg/dL (0.57-1.11)
[2019-02-16] MEDS: INSULIN LISPRO 100 UNIT/1 ML 3ML VIAL SQ SCH ×4 (07:30→21:00)
[2019-02-16] MEDS: CARVEDILOL 12.5 MG TAB PO SCH ×2 (08:59→21:19)
[2019-02-16] MEDS: FAMOTIDINE 20 MG TAB PO SCH (08:59)
[2019-02-16] MEDS: HYDRALAZINE HCL 25 MG TAB PO SCH ×3 (08:59→21:19)
--- NOTE | 2019-02-16 12:19 | Progress Note ---
DATE: 02/16/2019 SUBJECTIVE: Feels okay. Had her dialysis yesterday. Denied any trouble. No nausea or vomiting. She is not swelling up at this time. OBJECTIVE: VITAL SIGNS: Temperature is 99.6, pulse 79, and blood pressure 147/68. LABORATORY DATA: Hemoglobin of 10.3. Creatinine of 2.96, serum CO2 26, K of 4.0. Kidneys are actually looking normal on ultrasound, sizes are 10 cm/9 cm. ASSESSMENT: 1. Fluid overload, acute on chronic kidney disease. 2. Unclear if she has actually truly end-stage renal disease. 3. At this point, she has had serial dialysis with good response. 4. Currently still with urine output. PLAN: From renal standpoint, no acute indication for dialysis. We will follow along. We may give her whole of treatment briefly to see if she has any recovery in renal function. MD SYED BurtonK/CHALINOL /[id number]
--- NOTE | 2019-02-16 13:09 | NUR ---
GOT CHOICE SIGNED FOR [facility] WILL FAX CLINICALS TO THE [facility]
--- NOTE | 2019-02-16 13:21 | NUR ---
SPOKE WITH REP ANGELO WITH [employer] LET KNOW REFERRAL COMING THROUGH SHE WILL ASSIST AND HOPEFUL TO HAVE CHAIR BY TUESDAY. PT REQUESTING T, TUESDAY AND TUESDAY IN AFTERNOON OR EVENING SO HER CAN WORK.
--- NOTE | 2019-02-16 15:00 | NUR ---
spoke with md sanchez regarding plan of care. md states to set up chair for now. he will speak about plan of care to md alba (chair or no chair) (hd vs no hd) pt does not have a tunneled cath and cannot go home if chair found no orders for tunneled cath received pending dc plan for now
--- NOTE | 2019-02-16 19:45 | NUR ---
Assessment done.no resp.distress.no pain voiced.family member at bed side.bed locked and in lowest position.phone and call light within reach.informed to call for assistance as needed.verbalized understanding.
[2019-02-17] VITALS (9 sets, daily range): BP systolic 107–178; BP diastolic 55–84
--- NOTE | 2019-02-17 05:27 | Progress Note ---
DATE: 02/16/2019 Internal Medicine Progress Note This is coverage for Dr. Kashif Priest. SUBJECTIVE: The patient was able to eat well today. She had a bowel movement yesterday. She is independent of mobilization. She has a third hemodialysis completed successfully yesterday. REVIEW OF SYSTEMS: No headaches. No bleeding. OBJECTIVE: VITAL SIGNS: Afebrile, vital signs noted per the chart record. GENERAL: No acute distress, alert and calm. HEENT: Normocephalic and atraumatic. NECK: Supple. Throat midline. LUNGS: Bilateral air entry, limited air entry at the bases, but mostly clear. CARDIOVASCULAR: S1 and S2. No murmurs, rubs, or gallops. ABDOMEN: Soft and nontender. EXTREMITIES: No clubbing, no cyanosis, there is no edema. INTEGUMENT: No rash or purpura. LABORATORY DATA: 17 BUN, 2.9 creatinine. 26 bicarbonate. Potassium 4.0. IMPRESSION AND PLAN: 1. Severe congestive heart failure. 2. Acute on chronic kidney failure. 3. Mild anemia. 4. Diabetes. At this time, the patient to continue with a fresh hemodialysis access. Nephrology will consider if placed and the longterm access would be beneficial. Continue blood pressure control. Continue glucose control as well. We will follow along closely. William Marquez MD GMDon/MODL /[id number]
[2019-02-17] MEDS: FUROSEMIDE 40 MG TAB PO SCH ×2 (05:49→16:58)
--- NOTE | 2019-02-17 07:05 | NUR ---
Report given to the oncoming rn.walking rounds done.stable condition.
--- NOTE | 2019-02-17 07:15 | NUR ---
pt resting in bed aa0x3. family is at bedside pt is in no s.s of distress denies pain right ij access is dry and intact (hd treatment for today) and right hand 20 sl patent and dry will continue to care for pt at this time side railsx2, bed wheels locked, call light is within easy reach instructed to call for assistance if needed
[2019-02-17] MEDS: INSULIN LISPRO 100 UNIT/1 ML 3ML VIAL SQ SCH ×4 (07:30→21:14)
[2019-02-17] MEDS: FAMOTIDINE 20 MG TAB PO SCH (08:35)
[2019-02-17] MEDS: CARVEDILOL 12.5 MG TAB PO SCH ×2 (08:36→21:26)
[2019-02-17] MEDS: HYDRALAZINE HCL 25 MG TAB PO SCH ×3 (08:36→21:25)
--- NOTE | 2019-02-17 12:45 | NUR ---
hd treatment running. pt stable will continue to monitor
--- NOTE | 2019-02-17 13:11 | NUR ---
hd complete 1.5 L removed v/s stable at 142/68
--- NOTE | 2019-02-17 21:10 | NUR ---
Pt is resting comfortably in the bed.no resp.distress.no pain voiced.bed locked and in lowest position.phone and call light within reach.instructed to call for assistance as needed.
--- NOTE | 2019-02-17 22:55 | Progress Note ---
DATE: 02/17/2019 Internal Medicine Progress Note. This is coverage for Dr. Kashif Priest. SUBJECTIVE: Ms. Clemons was seen and examined at bedside. Hemodialysis line is in place. Renal specialist wanted to dialyze today. A 1.5 L removed of volume in dialysis. She is eating well. She had a bowel movement about two days ago. She is mobilizing independently. REVIEW OF SYSTEMS: No headaches, no bleeding. OBJECTIVE: VITAL SIGNS: Afebrile, vital signs noted per the chart record. GENERAL: In no acute distress, alert, in bed. HEENT: Normocephalic, atraumatic. NECK: Supple. Throat midline. LUNGS: Bilateral air entry, clear. CARDIOVASCULAR: S1, S2. No murmurs, rubs, or gallops. ABDOMEN: Soft, nontender. EXTREMITIES: No clubbing, no cyanosis. There is no edema. INTEGUMENT: No rash or purpura. IMPRESSION AND PLAN: 1. Clgzh-sj-hwqkvcf kidney failure. 2. Chronic kidney disease, stage 5. 3. Weakness, much improved. 4. Fluid overload. 5. Hypertension. At this time, we will continue current treatment. She will have hemodialysis per assembler wire mesh gate. For now, they want us to keep applying for dialysis chair as I spoke to the assembler wire mesh gate today. More likely to be discharged on dialysis, although she still can turn around late. She may go a little while possibly off dialysis, but this is not likely. Continue to allow her mobilize. Internal Controls Consultant is going to consider the need to change to a permanent dialysis catheter or at least a tunneled one. MD BERNIE Laird/MODL /[id number]
[2019-02-18] VITALS (8 sets, daily range): BP systolic 121–167; BP diastolic 57–75
[2019-02-18] MEDS: FUROSEMIDE 40 MG TAB PO SCH ×2 (05:34→16:46)
--- NOTE | 2019-02-18 06:50 | NUR ---
REPORT GIVEN TO THE ONCOMING RN.WALKING ROUNDS DONE.
--- NOTE | 2019-02-18 07:10 | NUR ---
PT RESTING IN BED AA0X3. PT IS NO S.S OF DISTRESS DENIES PAIN RIGHT HD ACCESS IS DRY AND INTACT RIGHT HAND 20 IS PATENT DRY AND INTACT PT DENIES ANY SOB, PT REMAIN ON RA W/O OF SUPPORT WILL CONTINUE TO MONITOR PT CLOSELY, SIDE RAILSX3, BED WHEELS LOCKED, CALL LIGHT IS WITHIN EASY REACH, INSTRUCTED TO CALL FOR ASSISTANCE IF NEEDED
[2019-02-18] MEDS: INSULIN LISPRO 100 UNIT/1 ML 3ML VIAL SQ SCH ×5 (07:26→21:10)
[2019-02-18] MEDS: HYDRALAZINE HCL 25 MG TAB PO SCH ×3 (07:52→21:00)
[2019-02-18] MEDS: FAMOTIDINE 20 MG TAB PO SCH (07:52)
[2019-02-18] MEDS: CARVEDILOL 12.5 MG TAB PO SCH ×2 (11:58→23:48)
--- NOTE | 2019-02-18 19:30 | NUR ---
Pt is lyeing in the bed.stated that she is tired.but not dizzy.assessment done.no resp.distress.no pain voiced.bed locked and in lowest position.phone and call light within reach.instructed to call for assistance as needed.keep monitor the pt.
--- NOTE | 2019-02-18 21:00 | NUR ---
Pt is lyeing in the bed.family members at bed side.assessment done.no resp.distress.no pain voiced.bed locked and in lowest position.phone and call light within reach.instructed to call for assistance as needed.
[2019-02-19] VITALS (7 sets, daily range): BP systolic 132–165; BP diastolic 61–74
--- NOTE | 2019-02-19 01:15 | Progress Note ---
DATE: 02/18/2019 Internal Medicine Progress Note This covers for Dr. Kashif Priest. SUBJECTIVE: Ms. Clemons was seen and examined at bedside. She had bowel movement yesterday. She is eating. She is independent on walking. She is on room air FiO2. REVIEW OF SYSTEMS: No headaches, no bleeding. OBJECTIVE: VITAL SIGNS: Afebrile, vital signs stable reviewed per the chart record. GENERAL: In no acute distress, alert, calm. HEENT: Normocephalic, atraumatic. NECK: Supple. Throat midline. LUNGS: Bilateral air entry, clear. CARDIOVASCULAR: S1, S2. No murmurs, rubs, or gallops. ABDOMEN: Soft, nontender. EXTREMITIES: No clubbing, no cyanosis, no edema. INTEGUMENT: No rash or purpura. ASSESSMENT/PLAN: 1. Advanced chronic kidney disease. 2. Acute kidney failure. 3. Fluid overload, much better. 4. Hypertension. 5. Diabetes. Continue good blood pressure control. The patient is not on any maintenance hypoglycemic agents given the possibility of procedures in the near future. Follow up closely and she is well controlled on the sliding scale. Nephrology to continue to follow up urine output and clearance. Consideration if patient needs dialysis or not to continue. Decision will be made if she needs long-term outpatient dialysis as of now. MD BERNIE Laird/MODL /[id number]
[2019-02-19] MEDS: FUROSEMIDE 40 MG TAB PO SCH ×2 (05:38→18:00)
[2019-02-19 06:02] LABS: BASOPHILS % 0.6 % (0.0-1.0); EOSINOPHILS # (AUTO) 0.5 (0.0-0.4); EOSINOPHILS % 6.8 % (0.0-6.0); HEMATOCRIT 32.8 % (34.2-44.1); HEMOGLOBIN 10.5 g/dL (12.0-16.0); LYMPHOCYTES # (AUTO) 1.9 (1.0-3.2); LYMPHOCYTES % 28.5 % (18.0-39.1); MEAN CORPUSCULAR VOLUME 90.6 fL (81-99); MONOCYTES # (AUTO) 0.7 (0.2-0.8); MONOCYTES % 9.7 % (4.4-11.3); NEUTROPHILS # (AUTO) 3.7 (2.1-6.9); NEUTROPHILS % 54.1 % (38.7-80.0); PLATELET COUNT 178 x10e3/uL (140-360); RED BLOOD COUNT 3.62 x10e6/uL (3.6-5.1); RED CELL DISTRIBUTION WIDTH 15.5 % (11.7-14.4)
[2019-02-19 06:14] LABS: CALCIUM 7.7 mg/dL (8.4-10.2); CREATININE, SERUM 4.56 mg/dL (0.57-1.11)
--- NOTE | 2019-02-19 06:50 | NUR ---
Bed side report given to the oncoming rn.walking round done.stable condition.
[2019-02-19] MEDS: INSULIN LISPRO 100 UNIT/1 ML 3ML VIAL SQ SCH ×4 (07:30→21:00)
--- NOTE | 2019-02-19 09:43 | NUR ---
SPOKE WITH DR FINCH WHOM STATES KIDNEYS ARE WORSE AND TO MOVE CLINIC TO [facility], LET REP KNOW. GOT CALL FROM [facility] WHOM STATES [facility] ONLY HAS M AND TUESDAY MORNINGS, SO PT WOULD LIKE TO KEEP THE TH SAT SCHEDULE AND [place] [facility] [place] [place] [facility] ALSO CLARIFIED ACUTE INJURY. ALSO VERIFIED SSN AGAIN TO HELP DETERMINE BENEFITS, [facility] [place] AND WILL LET ME KNOW. HE STATES PROBABLY NOT TODAY.
[2019-02-19] MEDS: HYDRALAZINE HCL 25 MG TAB PO SCH ×3 (10:00→22:24)
[2019-02-19] MEDS: CARVEDILOL 12.5 MG TAB PO SCH ×2 (10:00→22:24)
[2019-02-19] MEDS: FAMOTIDINE 20 MG TAB PO SCH (10:00)
--- NOTE | 2019-02-19 10:30 | NUR ---
AMBULATING IN HALLWAY, STEADY GAIT
--- NOTE | 2019-02-19 10:45 | NUR ---
SPOKE WITH HAT CHECKER TO VERIFY TIME OF PROCEDURE, STATES "HE DOESN'T KNOW "
--- NOTE | 2019-02-19 11:00 | NUR ---
SITTING ON BS COUCH, DENIES PAIN AT THIS TIME, EDUCATED PT THAT THEY WILL POSSIBLY DO TUNNELLED CATH TODAY SO NO LUNCH UNTIL AFTER WE GET CLARIFICATION, PT VERBALIZED UNDERSTANDING, CALL LIGHT WITHIN REACH
--- NOTE | 2019-02-19 13:12 | Progress Note ---
DATE: 02/19/2019 SUBJECTIVE: Denies any trouble breathing. Denies any nausea or vomiting. Appears that there is actually not much recovery in the kidney function on dialysis. Creatinine is up to 4.56, some swelling. OBJECTIVE: GENERAL: Sitting up. No distress. VITAL SIGNS: Temperature is 97.5, blood pressure 144/66, pulse 67. CHEST: Diminished breath sounds at the bases. EXTREMITIES: Trace edema. HEENT: Slight facial puffiness. LABORATORY DATA: K is 4.0, serum CO2 28, creatinine 4.56, hemoglobin is 10.5. UA positive for glucose and protein in the past. Kidneys are echogenic. ASSESSMENT: Declared end-stage renal disease, presumed positive diabetic nephropathy, hypertension, fluid overload, improved, anemia of chronic kidney disease with reasonable hemoglobin. PLAN: Low-salt intake, encouraged to control sugars. Changed to a tunneled catheter. Request outpatient dialysis chair. The closest unit she has is the [facility] to the best of my knowledge. We will try to place her there assuming they have chair time. Hemodialysis as of now on Tuesday, , Tuesday schedule while in the hospital. We will follow along. MD KRISHNA Burton/REY /[id number]
--- NOTE | 2019-02-19 14:00 | NUR ---
PT SHOWERED, VOICES NO NEEDS AT THIS TIME
--- NOTE | 2019-02-19 14:22 | NUR ---
SPOKE WITH EDGAR WITH [employer], MADE AWARE PT DID EAT LUNCH AND THAT NURSE DID ATTEMPT TO FIND OUT TIME FOR POSSIBLE PROCEDURE TODAY, STATES PROCEDURE WILL BE TOMORROW, PT NOTIFIED, TIME NOT SCHEDULED AT THIS TIME
--- NOTE | 2019-02-19 17:09 | NUR ---
SPOKE WITH MD FINCH, MADE AWARE THAT TUNNEL CATH WILL NOT BE PLACED UNTIL 02/20/2019, ORDERS NOTED
--- NOTE | 2019-02-19 19:00 | NUR ---
RECEIVED REPORT FROM DAY NURSE. PATIENT IS RESTING COMFORTABLY IN BED. BED IS IN LOWEST POSITION AND CALL LOVE IS WITHIN REACH. WILL CONTINUE TO MONITOR PATIENT.
[2019-02-20] VITALS (7 sets, daily range): BP systolic 109–185; BP diastolic 62–80
[2019-02-20] MEDS: FUROSEMIDE 40 MG TAB PO SCH ×2 (05:31→18:38)
[2019-02-20] MEDS ORDERED: SODIUM CHLORIDE 0.9% 1000ML 1,000 ML ONE ×2 (06:03→06:05)
--- NOTE | 2019-02-20 07:10 | NUR ---
PT ALERT RESP EVEN AND UNLABORED NO C/O PAIN WHEN ASKED PT ABLE TO MAKE NEEDS KNOWN, CALL LIGHT IN REACH.
--- NOTE | 2019-02-20 07:18 | NUR ---
REPORT GIVEN TO DAY NURSE. PATIENT IS RESTING IN BED. BED IS IN LOWEST POSITION AND CALL LOVE IS WITH REACH.
[2019-02-20] MEDS: INSULIN LISPRO 100 UNIT/1 ML 3ML VIAL SQ SCH ×4 (07:30→20:39)
[2019-02-20] MEDS ORDERED: SODIUM CHLORIDE 0.9% 1000ML 2,000 ML IV PRN (07:30)
[2019-02-20] MEDS ORDERED: ALBUMIN 25% 12.5GM 0.25 GM/ML BTL IV PRN (07:30)
[2019-02-20] MEDS ORDERED: SODIUM CHLORIDE 0.9% 250ML 500 ML IV PRN (07:30)
[2019-02-20] MEDS ORDERED: HEPARIN SOD (PORCINE) 1000 UNIT/ML SDV IV PRN (07:30)
[2019-02-20] MEDS ORDERED: MANNITOL 25% 12.5GM/50 ML VIAL IV PRN (07:30)
--- NOTE | 2019-02-20 07:45 | NUR ---
DIALYSIS STARTED PT TOLERATING WELL.
[2019-02-20] MEDS: HYDRALAZINE HCL 25 MG TAB PO SCH ×3 (09:00→20:38)
[2019-02-20] MEDS: FAMOTIDINE 20 MG TAB PO SCH (09:00)
[2019-02-20] MEDS: CARVEDILOL 12.5 MG TAB PO SCH ×2 (09:00→20:38)
--- NOTE | 2019-02-20 09:10 | NUR ---
FAXED UPDATED NOTES TO [facility] [phone] AND CALLED AND LEFT MESSAGE WITH COORDINATOR AWILDA [phone] [phone]. WAITING ON AUTH.
--- NOTE | 2019-02-20 12:08 | Progress Note ---
DATE: 02/20/2019 SUBJECTIVE: Seen on dialysis, tolerating procedure. OBJECTIVE: VITAL SIGNS: Temperature is 97.7, blood pressure 109/52, and pulse 59. CHEST: Clear. EXTREMITIES: Trace edema. HEENT: Facial puffiness. ASSESSMENT: 1. End-stage renal disease, diabetic and hypertensive end-organ damage. 2. Anemia with hemoglobin greater than 10. 3. Fluid overload, now controlled. 4. Metabolic acidosis, now controlled. PLAN: Hemodialysis today. Change to tunneled catheter. Plan of 4-hour run, 2 L fluid removal. Blood flow rate 350 mL/minute, dialysate flow rate 700 mL/minute. Await plan. After dialysis, she is set up as outpatient. She can be discharged. MD SYED BurtonK/MODL /[id number]
--- NOTE | 2019-02-20 12:43 | NUR ---
GOT CONFIRMATION LETTER FOR DIALYSIS FOR , AND SAT AT 615 PM WITH FIRST VISIT ON TUESDAY AT 430 TO SIGN ALL PAPERWORK.
--- NOTE | 2019-02-20 13:00 | NUR ---
PT OFF UNIT FOR CATHETER PLACEMENT.
[2019-02-20] MEDS ORDERED: SODIUM CHLORIDE 0.9% 500ML 1,000 ML ONE (13:08)
[2019-02-20] MEDS ORDERED: LIDOCAINE HCL 2% LOCAL 20 ML VIAL ONE ×2 (13:08→14:10)
[2019-02-20] MEDS ORDERED: MIDAZOLAM HCL 2 MG/2 ML VIAL ONE (13:08)
[2019-02-20] MEDS ORDERED: FENTANYL CITRATE/PF 100MCG/2 ML INJ ONE (13:08)
--- NOTE | 2019-02-20 15:13 | Diagnostic Imaging Report ---
Procedure: Tunneled hemodialysis catheter placement. Telecasting Technician: None. Medications: Versed 1 mg intravenous, fentanyl 50 mcg intravenous. The patient's vital signs, including pulse oximetry, were continuously monitored by the interventional radiology nurse. Sedation time was 30 minutes or less Fluoroscopy time: 1.5 minutes. Dose area product: 205.0 cGycm2 Contrast used: None Estimated blood loss: Minimal, less than 5 cc Complications: No immediate. Procedure in detail: The right neck and upper chest was prepped and draped in the standard sterile fashion after the patient was placed in the supine position on the fluoroscopic table. 1% lidocaine was administered into the skin and subcutaneous tissues of the right lower neck for local anesthesia. A 0.035 " Amplatz wire was then advanced through the central lumen of the temporary HD catheter into the inferior vena cava under fluoroscopic guidance. Attention was then turned to the right upper chest. A suitable catheter exit site was determined, approximately 3 fingerbreadths inferior to the clavicle. The skin was marked. 1% lidocaine was epinephrine was used to anesthetize a subcutaneous tract extending from the planned catheter exit site to the venotomy at the right lower neck. A stab incision was made on the right upper chest. Subsequently, the catheter was tunneled from the exit site of the right upper chest to the venotomy at the right lower neck. The retention cuff of the catheter was advanced well into the subcutaneous tunnel. A 16.5-[place] peel-away sheath was advanced over the wire under fluoroscopic guidance. The wire and inner dilator of the sheath were removed and the16 Fr Bard split tip catheter was advanced through the peel-away sheath, which was then broken and removed. The catheter tips were positioned in the upper right atrium. Each catheter lumen showed good bidirectional flow. Each lumen was then packed with 2000 units of heparin. The catheter was secured at the exit site on the right upper chest with monofilament nylon suture. The venotomy at the right lower neck was closed with a single 4-0 Vicryl suture. A purse string suture with 4-0 Vicryl was placed around the catheter entry site into the tunnel. A sterile dressing was applied. The patient tolerated the procedure well without immediate complication. Impression: Successful placement of a tunneled dual-lumen hemodialysis catheter (Bard split ygy90-Vleroa, 19-cm tip-cuff length) by a right internal jugular approach. Signed by: Dr. Pelon Frias DO on 02/20/2019 3:09 PM
--- NOTE | 2019-02-20 15:30 | NUR ---
Visit made by the Spiritual Care Department Pastoral Visitor, Karen Lopez. PV provided pastoral presence, prayer, hospitality, and supportive listening. Pastoral Visitor informed pt/family of the scope of Spectrograph Operator Services and availability. LETICIA SEGURA Property Controller Spiritual Care Department O: [phone] Pager: [phone] ([phone] number calling from)
--- NOTE | 2019-02-20 16:00 | NUR ---
PT RETURNED TO UNIT FROM CATHETER PLACE SITE CLEAN AND INTACT. NO PAIN AT THIS TIME.
--- NOTE | 2019-02-20 19:15 | NUR ---
Rounding done & report received. Patient is resting in bed talking on the phone. Respirations even & unlabored, no distress noted. IV to R hand 20g SL, patent & no infiltration noted. Patient has HD tunnel catheter to right upper chest. Patient denies any issues or needs at this time. Call light within reach, side rails x2 raised & bed set to lowest position.
--- NOTE | 2019-02-20 19:21 | NUR ---
report given to oncoming nurse for continued care
[2019-02-21] VITALS: BP 168/78
[2019-02-21 04:00] VITALS: BP 163/77
[2019-02-21] MEDS: FUROSEMIDE 40 MG TAB PO SCH (06:30)
[2019-02-21 07:24] VITALS: BP 168/78
[2019-02-21] MEDS: INSULIN LISPRO 100 UNIT/1 ML 3ML VIAL SQ SCH (07:30)
--- NOTE | 2019-02-21 07:36 | NUR ---
RECEIVED PATIENT AWAKE RESTING IN BED NO SIGNS OF DISTRESS AT THIS TIME. BED LOW, WHEELS LOCKED, SIDE RAILS X2. CALL LIGHT IN REACH WILL CONTINUE TO MONITOR PATIENT.
[2019-02-21] MEDS ORDERED: LASIX40 MG PO (09:29)
[2019-02-21] MEDS ORDERED: COREG12.5 MG PO (09:29)
[2019-02-21] MEDS ORDERED: HYDRALAZINE HC100 MG PO (09:30)
[2019-02-21 09:55] VITALS: BP 168/78
[2019-02-21] MEDS: HYDRALAZINE HCL 25 MG TAB PO SCH (10:05)
[2019-02-21] MEDS: CARVEDILOL 12.5 MG TAB PO SCH (10:06)
[2019-02-21] MEDS: FAMOTIDINE 20 MG TAB PO SCH (10:06)
--- NOTE | 2019-02-21 10:25 | NUR ---
REMOVED PATIENTS IV. CATHETER TIP INTACT ON REMOVAL PRESSURE DRESSING APPLIED.
--- NOTE | 2019-02-21 10:34 | NUR ---
PATIENT DISCHARGED FROM FACILITY. PATIENT GATHERED ALL PERSONAL BELONGINGS, DISCHARGE INSTRUCTIONS, PRESCRIPTIONS AND FOLLOW UP INFORMATION. PATIENT VERBALIZED UNDERSTANDING. PATIENT LEFT UNIT IN WHEELCHAIR AND WENT HOME VIA PRIVATE AUTO. NO SIGNS OF DISTRESS WHEN LEAVING FACILITY.
--- NOTE | 2019-02-22 05:37 | Discharge Summary ---
PRIMARY CARE DOCTOR: Dr. Reji Sheets. FINAL DIAGNOSES: 1. Acute respiratory failure due to acute pulmonary edema, resolved. 2. Newly diagnosed end-stage renal disease. 3. Hypertensive emergency, resolved. 4. Chronic anemia, status post 1 unit of packed red blood cells. 5. Diabetes with likely diabetic holiday. CONSULTANTS: 1. Dr. Jung, Nephrology. 2. Dr. Benson, Pulmonary. 3. Dr. Tobias, Cardiology. PROCEDURES/STUDIES PERFORMED: 1. Echocardiogram. 2. Dialysis catheter placement. 3. Renal ultrasound. HISTORY: Per H and P. HOSPITAL COURSE: The patient was admitted initially and a temporary dialysis catheter was inserted and dialysis was started. This helped with her pulmonary edema, which she was able to come off her BiPAP and this also helped with her hypertensive emergency. The patient did require 1 unit of blood for her chronic anemia. Subsequently, the temporary dialysis catheter was switched to a PermCath and her chair time was arranged for Tuesday, , and Tuesday. The patient was seen and examined today. CONDITION ON DISCHARGE: Improved. DISCHARGE MEDICATIONS: Please see medication reconciliation form. It took 32 minutes total to discharge this patient. Briandaching MD JUSTYN Franks/REY /[id number] cc: Reji Sheets
== END 2019-02-21 10:34 | disposition home or self-care (01) | DRG 291 ==
LOC: ER 13:34 → ERHOLD 19:20 → ICU 19:53 → MED/SURG 02-15 18:47
PROVIDERS: ADMIT Internal Medicine; ATTEND Internal Medicine
PROC: 5A1D70Z Performance of Urinary Filtration, Intermittent, Less than 6 Hours Per Day (ICD-10-PCS; 2019-02-13)
PROC: 02HV33Z Insertion of Infusion Device into Superior Vena Cava, Percutaneous Approach (ICD-10-PCS; 2019-02-13)
PROC: B548ZZA Ultrasonography of Superior Vena Cava, Guidance (ICD-10-PCS; 2019-02-13)
PROC: 5A1D70Z Performance of Urinary Filtration, Intermittent, Less than 6 Hours Per Day (ICD-10-PCS; 2019-02-14)
PROC: 30233N1 Transfusion of Nonautologous Red Blood Cells into Peripheral Vein, Percutaneous Approach (ICD-10-PCS; 2019-02-14)
PROC: 5A1D70Z Performance of Urinary Filtration, Intermittent, Less than 6 Hours Per Day (ICD-10-PCS; 2019-02-15)
PROC: 5A0935Z Assistance with Respiratory Ventilation, Less than 24 Consecutive Hours (ICD-10-PCS; principal; 2019-02-16)
PROC: 5A1D70Z Performance of Urinary Filtration, Intermittent, Less than 6 Hours Per Day (ICD-10-PCS; 2019-02-17)
PROC: 5A1D70Z Performance of Urinary Filtration, Intermittent, Less than 6 Hours Per Day (ICD-10-PCS; 2019-02-20)
PROC: 0JH63XZ Insertion of Tunneled Vascular Access Device into Chest Subcutaneous Tissue and Fascia, Percutaneous Approach (ICD-10-PCS; 2019-02-20)
PROC: 02H633Z Insertion of Infusion Device into Right Atrium, Percutaneous Approach (ICD-10-PCS; 2019-02-20)
DX: I13.2 Hypertensive heart and chronic kidney disease with heart failure and with stage 5 chronic kidney disease, or end stage renal disease (principal); N18.6 End stage renal disease; I50.31 Acute diastolic (congestive) heart failure; J96.01 Acute respiratory failure with hypoxia; I16.1 Hypertensive emergency; D62 Acute posthemorrhagic anemia; N17.9 Acute kidney failure, unspecified; E87.2 Acidosis; E87.70 Fluid overload, unspecified; E87.5 Hyperkalemia; Z99.2 Dependence on renal dialysis; E11.22 Type 2 diabetes mellitus with diabetic chronic kidney disease; E11.65 Type 2 diabetes mellitus with hyperglycemia; Z83.3 Family history of diabetes mellitus; Z82.49 Family history of ischemic heart disease and other diseases of the circulatory system; D63.8 Anemia in other chronic diseases classified elsewhere; E78.5 Hyperlipidemia, unspecified; R80.9 Proteinuria, unspecified
CPT/HCPCS: 36415; 36556; 36558; 36600; 71045; 71046; 74470; 76770; 76937; 80048; 80053; 80061; 81001; 82550; 82553; 82805; 82948; 83735; 83880; 84100; 84484; 85014; 85018; 85025; 85610; 85730; 86704; 86706; 86850; 86900; 86920; 87340; 90962; 93005; 93306; 94660; 96372; 99284; C1750; C1751; C1769; J0360; J1644; J2001; J2060; J2150; J2250; J7030; J7040; J7799; P9016

== ENCOUNTER → 2020-02-14 | Outpatient (CLI) | payer OTHER ==
[~2020-02-14] MED LIST: COREG12.5 MG PO; GLIPIZIDE ER5 MG PO; HYDRALAZINE HC100 MG PO; LASIX40 MG PO; LIPITOR10 MG PO; LOSARTAN POTAS100 MG PO; METOPROLOL SUCC50 MG PO; [UNRECOGNIZED DRUG - OTHER] PO
--- OUTSIDE RECORDS SUMMARY | 2020-02-18 08:03 | XMS REPORT | Clinical Summary ---
Author Author [facility] ict Organization [facility] ict Address Unknown Phone Unavailable Care Team Providers Care Plant Reliability Engineer Name Role Phone PCP Unavailable Allergies No Known Allergies Medications End Date Status Medication Sig Dispensed Refills Start Date Active clotrimazole (LOTRIMIN) 1 Apply to 30 mL 3 % external affected area 3 solutionIndications: 2 times Fungal infection, daily. X 4 Onychomycosis weeks on your nails and 1 week on your soles Active blood glucose Use as 1 Kit 0 meterIndications: History directed. 3 of diabetes mellitus Active sodium phosphates (FLEET Insert by 1 Enema 0 0 ENEMA EXTRA) 19-7 rectum. 3 gram/197 mL EnemIndications: Constipation Active blood glucose (PRECISION CHEQUE EL 2 Box 4 0 XTRA TEST STRIPS) test SAMEER DE 4 stripsIndications: AZUCAR ANTES Diabetes mellitus type DE LOS II, uncontrolled COMIDAS Y 2 HORAS DESPUES DE COMIDAS Active lancets 28 gauge CHEQUE EL 100 Each 4 MiscIndications: Diabetes SAMEER DE 4 mellitus type II, AZUCAR ANTES uncontrolled DE LOS COMIDAS Y 2 HORAS DESPUES DE LOS COMIDAS Active INSULIN SYRINGE Use to inject 200 Each 3 03/18/20 1 1mL/30GX5/16" (ULTRA insulin. Use 4 COMFORT) a new syringe syringe-needleIndications each time. : Uncontrolled diabetes mellitus Active ketoconazole (NIZORAL) 2 Apply to 30 g 0 0 % topical affected area 4 creamIndications: Tinea 2 times pedis daily. Active glimepiride (AMARYL) 2 mg Take 2 60 tablet 1 tabletIndications: tablets by 4 Diabetes mellitus mouth every morning (before breakfast). Active Take 1 tablet 90 tablet 2 idgvjpc-viaj-fbsxu acid by mouth 5 (PRENATABS) daily. tabletIndications: Supervision of high-risk Active blood glucose Use as 1 Kit 0 meterIndications: Type II directed.. 5 or unspecified type diabetes mellitus without mention of complication, uncontrolled, Supervision of high-risk with grand multiparity Active desogestrel-ethinyl Take 1 tablet 84 Each 3 estradiol (VELIVET) by mouth 5 0.1/.125/.15-25 mg-mcg daily. tabletIndications: Family planning Active metFORMIN (GLUCOPHAGE) Take 1 tablet 180 tablet 1 1 500 mg tabletIndications: by mouth 2 5 Diabetes mellitus type 2 times daily without retinopathy (with meals). Active glimepiride (AMARYL) 4 mg Take 1 tablet 180 tablet 1 tabletIndications: by mouth 2 6 Diabetes mellitus without times daily. ophthalmic manifestations Active blood glucose test 2 times 50 Each 3 01 stripsIndications: weekly. 6 Diabetes mellitus type 2 without retinopathy Active lancets 28 by 100 Each 2 gaugeIndications: MISCELLANEOUS 6 Diabetes mellitus type 2 route 2 times without retinopathy weekly. Active ibuprofen (MOTRIN) 800 mg Take 1 tablet 30 tablet 0 tabletIndications: Pain, by mouth 6 dental every 8 hours as needed for Pain. Active lisinopril (PRINIVIL) 10 Take 1 tablet 30 tablet 0 mg tabletIndications: by mouth 7 Uncontrolled hypertension daily. Active cetirizine (ZYRTEC) 10 mg Take 1 tablet 30 tablet 0 tabletIndications: by mouth 7 Allergic cough daily. Active hydrocortisone 2.5 % Apply to 20 g 0 11/30 topical creamIndications: abdominal 7 Pruritus, Contact area twice a dermatitis and other day as needed eczema, due to for itching unspecified cause for 7 days. Do not apply to face, neck, or axillary area.. Active hydroCHLOROthiazide 12.5 Take 1 30 capsule 0 0 mg capsuleIndications: capsule by 7 Uncontrolled mouth every hypertension, morning. 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 Diabetes mellitus without ophthalmic manifestations 11/12/2015 Dental examination 02/27/2015 Periodontitis 02/27/2015 Dental caries 02/27/2015 Myopia with astigmatism 06/19/2014 Diabetes mellitus type 2 without retinopathy 014 Dental decay 03/26/2014 History of complete foot exam by entry level web developer or other provider 03/18/2014 Pyelonephritis 02/28/2014 History of diabetes mellitus 05/01/2013 Missed period 05/01/2013 Fungal infection 05/01/2013 Onychomycosis 05/01/2013 Immunizations Name Administration Dates Next Due Influenza Vaccine 11/30/2016 (Deferred: Other ), 11/22/2016 (Deferred: Patient Refused), 08/07/2015 , 11/12/2014, 12/06/2013 PPV 23 Pneumococcal 05/01/2013 Polysaccaride Tdap Tetanus, diphtheria, 05/01/2013 acellular pertussis Vaccine Family History Medical History Relation Name Comments Diabetes Brother Diabetes Father Heart Father enlarged heart Diabetes Mother Relation Name Status Comments Brother Alive Brother Alive Brother Father heart problems (Age 75) Mother Alive Sister Alive Sister Alive Sister Alive Sister Alive Sister Alive Sister Alive Sister Alive Social History Date Tobacco Use Types Packs/Day Years Used Quit: 06/03/2008 Former Smoker 4 Smokeless Tobacco: Former User Tobacco Cessation: Counseling Given: No Comments: quit 2005 Drinks/Week oz/Week Comments Alcohol Use 0 Standard drinks or equivalent 0.0 No Sex Assigned at Date Recorded Not on file Industry Job Start Date Occupation Not on file Not on file Not on file Travel End Travel History Travel Start No recent travel history available. Last Filed Vital Signs Not on file Plan of Treatment Health Maintenance Due Date Last Done Comments DM Foot Exam (Yearly) 05/01/2014 05/01/2013 (Prev iously completed - External) Breast Cancer Scrn 2016 (Yearly) Cervical Cancer Scrn (3 06/22/2016 06/22/2013 (Pr eviously completed - Yrs) External), 02/03/2009 (Prev iously completed - External) DM Retinal Exam (Yearly) 11/12/2016 11/12/2015, 0 12/07/2013 DM HGBA1C (Yearly) 05/14/2017 05/14/2016, 016, 09/18/2015, Additional history exists Goals Goal Patient Associated Recent Progress Patient-Stat Aut hor Goal Type Problems ed? Have 3 meals a day + 1-2 mixed Diet No [place], nutrient snacks BRANDEE Grubbs Increase physical activity Lifestyle No Gau se, BRANDEE Grubbs Results Not on fileafter 02/17/2019 Advance Directives Date Inactivated Comments Code Status Date Activated 03/01/2014 1:49 PM Full Code 02/28/2014 8:45 AM
--- OUTSIDE RECORDS SUMMARY | 2020-02-18 08:03 | XMS REPORT ---
Author Author [facility] t Organization [facility] Address [address] [place] [address] Phone Unavailable Care Team Providers Care Line Tender Flakeboard Name Role Phone REJI PINEDO PCP Michael PRIEST Attphys Unavailable REJI PINEDO Attphys Unavailable Michael PRIEST Admphys Unavailable Payers Payer Name Policy Type Policy Number Effective Date Expiration Date S pino [facility] [id number] I [facility] Problems Condition Name Condition Details Condition Category Status Onset Date Resolution Date Last Treatment Date Treating Clinician Comments Source Protein in urine Protein in urine Disease Active 2016-05-14 00:00:00 [facility] 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 Disease Active 2015-11-12 00:00:00 [facility] Diabetes mellitus without ophthalmic manifestations Di abetes mellitus without ophthalmic manifestations Disease Active 2015-11-12 00:00:00 [facility] Dental examination Dental examination Disease Active 2015-02-27 00:00:0 0 [facility] Periodontitis Periodontitis Disease Active 2015-02-27 00:00:00 [facility] Dental caries Dental caries Disease Active 2015-02-27 00:00:00 [facility] Myopia with astigmatism Myopia with astigmatism Disease Active 2014-06-19 00:00:00 [facility] Diabetes mellitus type 2 without retinopathy Diabetes mellitus type 2 without retinopathy Disease Active 2014-06-19 00:00:00 [facility] Dental decay Dental decay Disease Active 2014-03-26 00:00:00 [facility] History of complete foot exam by sharepoint designer developer or other p rovider History of complete foot exam by sharepoint designer developer or other provider Disease Active 2014-03-18 00:00:00 [facility] Pyelonephritis Pyelonephritis Disease Active 2014-02-28 00:00:00 [facility] History of diabetes mellitus History of diabetes mellitus Disease Active 2013-05-01 00:00:00 [facility] Missed period Missed period Disease Active 2013-05-01 00:00:00 [facility] Fungal infection Fungal infection Disease Active 2013-05-01 00:00:00 [facility] Onychomycosis Onychomycosis Disease Active 2013-05-01 00:00:00 [facility] Acute renal failure Acute renal failure Problem Active [facility] Congestive heart failure CHF (congestive heart failure) Problem Active [facility] Dyspnea Dyspnea Problem Active [facility] Allergies, Adverse Reactions, Alerts Allergy Name Allergy Type Status Severity Reaction(s) Onset Date Inacti ve Date Treating Clinician Comments Source No Known Allergies DA Active U 2018-10-27 00:00:00 [facility] Family History Family Member Diagnosis Comments Start Date Stop Date Source Natural brother Diabetes [facility] Natural father Diabetes [facility] [facility] Social History Social Habit Start Date Stop Date Quantity Comments Source Sex Assigned [facility] Alcohol intake 2016-11-30 00:00:00 2016-11-30 00:00:00 [facility] Tobacco Comment 2014-11-12 00:00:00 2014-11-12 00:00:00 quit 2005 [facility] History of tobacco use 2008-06-03 00:00:00 Current smoker [facility] Smoking Status Start Date Stop Date Source Former smoker 2016-11-30 00:00:00 2016-11-30 00:00:00 [facility]alt Medications Ordered Medication Name Filled Medication Name Start Date Stop Da te Current Medication? Ordering Clinician Indication Dosage Frequency Signature (SIG) Comments Components Source cetirizine (ZYRTEC) 10 mg tablet 2016-11-30 00:00:00 Yes [id number] 10mg QD Take 1 tablet by mouth daily. [facility] hydrocortisone 2.5 % topical cream 2016-11-30 00:00:00 Yes [id number] Apply to abdominal area twice a day as needed for itching for 7 days. Do not apply to face, neck, or axillary area.. [facility] hydroCHLOROthiazide 12.5 mg capsule 2016-11-30 00:00:00 Yes [id number] 12.5mg Take 1 capsule by mouth every morning. [facility] lisinopril (PRINIVIL) 10 mg tablet 2016-11-22 00:00:00 Y es [id number] 10mg QD Take 1 tablet by mouth daily. [facility] ibuprofen (MOTRIN) 800 mg tablet 2016-08-17 00:00:00 Yes [id number] 800mg Take 1 tablet by mouth every 8 hours as needed for Pain. [facility] blood glucose test strips 2016-05-17 00:00:00 Yes [id number] 2 times weekly. [facility] lancets 28 gauge 2016-05-17 00:00:00 Yes [id number] 36633 by MISCELLANEOUS route 2 times weekly. [facility] glimepiride (AMARYL) 4 mg tablet 2015-12-04 00:00:00 Yes [id number] 4mg Q.5D Take 1 tablet by mouth 2 times daily. [facility] metFORMIN (GLUCOPHAGE) 500 mg tablet 2015-08-14 00:00:00 Yes [id number] 500mg Take 1 tablet by mouth 2 times daily (with meal s). [facility] desogestrel-ethinyl estradiol (VELIVET) 0.1/.125/.15-25 mg-m cg tablet 2015-08-07 00:00:00 Yes [id number] 1{tbl} QD Take 1 tab let by mouth daily. [facility] blood glucose meter 2015-03-25 00:00:00 Yes [id number] Use as directed.. [facility] ywmnerg-nani-bbdib acid (PRENATABS) tablet 11-13 00:00:00 Yes [id number] 1{tbl} QD Take 1 tablet by mouth daily. [facility] glimepiride (AMARYL) 2 mg tablet 2014-05-21 00:00:00 Yes [id number] 4mg QD Take 2 tablets by mouth every morning (before breakfast). [facility] INSULIN SYRINGE 1mL/30GX5/16" (ULTRA COMFORT) syringe-needle 2014-03-18 00:00:00 Yes [id number] Use to inj ect insulin. Use a new syringe each time. [facility] ketoconazole (NIZORAL) 2 % topical cream 2014-03-18 00:00:00 Yes [id number] Q.5D Apply to affected area 2 times daily. [facility] blood glucose (PRECISION XTRA TEST STRIPS) test strips 2013-12-06 00:00:00 Yes [id number] CHEQUE EL SANGR E DE AZUCAR ANTES DE LOS COMIDAS Y 2 HORAS DESPUES DE COMIDAS [facility] lancets 28 gauge Misc 2013-12-06 00:00:00 Yes [id number] CHEQUE EL SAMEER DE AZUCAR ANTES DE LOS COMIDAS Y 2 HORAS DESPUES DE LOS COMIDAS [facility] sodium phosphates (FLEET ENEMA EXTRA) 19-7 gram/197 mL Enem 2013-06-22 00:00:00 Yes [id number] Insert by rectum. [facility] clotrimazole (LOTRIMIN) 1 % external solution 2013-05-01 00: 00:00 Yes [id number] Q.5D Apply to affected a neeru 2 times daily. X 4 weeks on your nails and 1 week on your soles [facility] blood glucose meter 2013-05-01 00:00:00 Yes [id number] Use as directed. [facility] Carvedilol (Coreg) 12.5 Mg Tab Carvedilol (Coreg) 12.5 Mg Tab Yes 25 Twice A Day [facility] Furosemide (Lasix) 40 Mg Tablet Furosemide (Lasix) 40 Mg Tablet Yes 60 Twice A Day [facility] Hydralazine Hcl 100 Mg Tablet Hydralazine Hcl 100 Mg Tablet Yes 100 Three Times A Day [facility] Immunizations Ordered Immunization Name Filled Immunization Name Date Status Comments Source Influenza Vaccine 2015-08-07 00:00:00 Completed [facility] Influenza Vaccine 2014-11-12 00:00:00 Completed [facility] Influenza Vaccine 2013-12-06 00:00:00 Completed [facility] PPV 23 Pneumococcal Polysaccaride 2013-05-01 00:00:00 Comp leted [facility] Tdap Tetanus, diphtheria, acellular pertussis Vaccine 2013-05-01 00:00:00 Completed [facility] Procedures Procedure Date / Time Performed Performing Clinician [facility] e X-ray of chest, two views 2019-02-13 00:00:00 JENNIFER FELICIANO [facility] Ultrasound guidance for vascular access 2019-02-13 00:00:00 JENNIFER SOTO [facility] Ultrasound, renal 2019-02-13 00:00:00 JENNIFER FELICIANO [facility] X-ray of chest, two views 2018-11-07 00:00:00 REJI PINEDO [facility] Plan of Care Planned Activity Planned Date Details Comments Source Future Scheduled Test 2017-05-14 00:00:00 DM HGBA1C (Yearly) [code = DM HGBA1C (Yearly)] [facility] Scheduled Test 2016-11-12 00:00:00 DM Retinal Exam (Y early) [code = DM Retinal Exam (Yearly)] [facility] Scheduled Test 2016-06-22 00:00:00 Cervical Cancer Sc rn (3 Yrs) [code = Cervical Cancer Scrn (3 Yrs)] [facility] Scheduled Test 2016 00:00:00 Breast Cancer Scrn (Yearly) [code = Breast Cancer Scrn (Yearly)] [facility] Scheduled Test 2014-05-01 00:00:00 DM Foot Exam (Year ly) [code = DM Foot Exam (Yearly)] [facility] Encounters Start Date/Time End Date/Time Encounter Type Admission Type Att[facility] Care Department Encounter ID Source 2019-02-13 19:20:00 2019-02-21 10:34:00 Discharged Inpatient 1 ARIANE PRIEST [facility] [id number] [facility] 2018-11-07 13:09:00 2018-11-07 13:09:00 Registered Clinic 3 REJI PINEDO [facility] [id number] [facility] Results Test Description Test Time Test Comments Results Result Comments Source Bedside Glucose 2019-02-20 16:33:00 Test Item Bedside Glucose (test code = 69836-4) 102 70-120 Meter ID: [id number] [facility] [id number] 15:01:00 [facility] [address] [place] [address] Patient Name: HEMANTH ARGUELLO MR #: [id number] : 1975 Age/Sex: 43/F Req #: [id number] Adm Physician: ARIANE PRIEST MD Ordered by: CEASAR FINCH MD Report #: [id number] Location: MED/SURG Room/Bed: [facility] Procedure: [id number] IR/SPEC IAL PROCEDURE IN PERITONEAL DIALYSIS REGISTERED NURSE Exam Date: Exam Time: REPORT STATUS: Signed Procedure: T unneled hemodialysis catheter placement. Silo Filler: None. Medications: Versed 1 mg intravenous, fentanyl 50 mcg intravenous. The patient's vital si gns, including pulse oximetry, were continuously monitored by the intervention al radiology nurse. Sedation time was 30 minutes or less Fluoroscopy time: 1.5 minutes. Dose area product: 205.0 cGycm2 Contrast used: None Estima elo blood loss: Minimal, less than 5 cc Complications: No immediate. Proc edure in detail: The right neck and upper chest was prepped and draped in t he standard sterile fashion after the patient was placed in the supine positio n on the fluoroscopic table. 1% lidocaine was administered into the skin and subcutaneous tissues of the right lower neck for local anesthesia. A 0.03 5 " Amplatz wire was then advanced through the central lumen of the temporary HD catheter into the inferior vena cava under fluoroscopic guidance. Atte ntion was then turned to the right upper chest. A suitable catheter exit site was determined, approximately 3 fingerbreadths inferior to the clavicle. The skin was marked. 1% lidocaine was epinephrine was used to anesthetize a subc utaneous tract extending from the planned catheter exit site to the venotomy a t the right lower neck. A stab incision was made on the right upper chest. S ubsequently, the catheter was tunneled from the exit site of the right upper c hest to the venotomy at the right lower neck. The retention cuff of the maribel ter was advanced well into the subcutaneous tunnel. A 16.5-Niuean peel-away sheath was advanced over the wire under fluoroscopic guidance. The wire and inner dilator of the sheath were removed and the16 Fr Bard split tip catheter was advanced through the peel-away sheath, which was then broken and removed. The catheter tips were positioned in the upper right atrium. Each cathet er lumen showed good bidirectional flow. Each lumen was then packed with 2000 units of heparin. The catheter was secured at the exit site on the right upp er chest with monofilament nylon suture. The venotomy at the right lower neck was closed with a single 4-0 Vicryl suture. A purse string suture with 4-0 Vi cryl was placed around the catheter entry site into the tunnel. A sterile natalya ssing was applied. The patient tolerated the procedure well without immediate complication. Impression: Successful placement of a tunneled dual-lum en hemodialysis catheter (Bard split cjz09-Dzflex, 19-cm tip-cuff length) by a right internal jugular approach. Signed by: Dr. Adan Sanon DO on 2018 3:09 PM Dictated By: ADAN SANON DO 0 Transcribed By: PRIYA on 03/01/19950 Kulwant SHARP TO: CEASAR FINCH MD IR [id number] 15:01:00 [place] [address] Patient Name: HEMANTH ARGUELLO MR #: [id number] : 1975 Age/Sex: 43/F Req #: [id number] [facility] Physician: ARIANE PRIEST MD Ordered by: CEASAR FINCH MD Report #: [id number] Location: MED/SURG Room/Bed: [facility] Procedure: [id number] DX/IR C ONSULT Exam Date: Exam Time: REPORT STATUS: Signed Procedure: Tunneled hemodialysis catheter placement. Silo Filler: None. Medications: Versed 1 mg intrav enous, fentanyl 50 mcg intravenous. The patient's vital signs, including puls e oximetry, were continuously monitored by the interventional radiology nurse. Sedation time was 30 minutes or less Fluoroscopy time: 1.5 minutes. Dose area product: 205.0 cGycm2 Contrast used: None Estimated blood loss: Min imal, less than 5 cc Complications: No immediate. Procedure in detail: The right neck and upper chest was prepped and draped in the standard sterile fashion after the patient was placed in the supine position on the fluoroscopic table. 1% lidocaine was administered into the skin and subcutaneous ti ssues of the right lower neck for local anesthesia. A 0.035 " Amplatz wire wa s then advanced through the central lumen of the temporary HD catheter into th e inferior vena cava under fluoroscopic guidance. Attention was then turn ed to the right upper chest. A suitable catheter exit site was determined, ap proximately 3 fingerbreadths inferior to the clavicle. The skin was marked. 1% lidocaine was epinephrine was used to anesthetize a subcutaneous tract exte nding from the planned catheter exit site to the venotomy at the right lower n leonardo. A stab incision was made on the right upper chest. Subsequently, the ca theter was tunneled from the exit site of the right upper chest to the venotom y at the right lower neck. The retention cuff of the catheter was advanced we ll into the subcutaneous tunnel. A 16.5-Niuean peel-away sheath was advance d over the wire under fluoroscopic guidance. The wire and inner dilator of th e sheath were removed and the16 Fr Bard split tip catheter was advanced throug h the peel-away sheath, which was then broken and removed. The catheter tips were positioned in the upper right atrium. Each catheter lumen showed goo d bidirectional flow. Each lumen was then packed with 2000 units of heparin. The catheter was secured at the exit site on the right upper chest with monof ilament nylon suture. The venotomy at the right lower neck was closed with a single 4-0 Vicryl suture. A purse string suture with 4-0 Vicryl was placed marlene und the catheter entry site into the tunnel. A sterile dressing was applied. The patient tolerated the procedure well without immediate complication. Impression: Successful placement of a tunneled dual-lumen hemodialysis cat heter (Bard split ppc40-Xcqnbm, 19-cm tip-cuff length) by a right internal jug ular approach. Signed by: Dr. Adan Sanon DO on 02/20/2019 3:09 PM Dictated By: ADAN SANON DO 0 COPY TO: TANYA FINCH MD Sodium [id number] 06:14:00* Test Item Value Reference Range Interpretation Comments Sodium Level (test code = 2951-2) 139 136-145 [facility] HospitalPotassium Qvczj6216-81-95 06:14:00* Test Item Value Reference Range Interpretation Comments Potassium Level (test code = 2823-3) 4.0 3.5-5.1 [facility] HospitalChloride Vujdv2889-01-42 06:14:00* Test Item Value Reference Range Interpretation Comments Chloride Level (test code = 2075-0) 103 98-107 [facility] HospitalCarbon Dioxide Mmofm5634-15-66 06:14:00* Test Item Value Reference Range Interpretation Comments Carbon Dioxide Level (test code = 2028-9) 28 22-29 [facility] HospitalAnion Mvn3021-00-64 06:14:00* Test Item Value Reference Range Interpretation Comments Anion Gap (test code = 25682-1) 12.0 8-16 [facility] HospitalBlood Urea Loozqyiw0350-91-35 06:14:00* Test Item Value Reference Range Interpretation Comments Blood Urea Nitrogen (test code = 3094-0) 34 7-26 [facility] HospitalCreatinine2019-05-20 06:14:00* Test Item Value Reference Range Interpretation Comments Creatinine (test code = 2160-0) 4.56 0.57-1.11 [facility] HospitalBUN/Creatinine Pgbsq7040-46-94 06:14:00* Test Item Value Reference Range Interpretation Comments BUN/Creatinine Ratio (test code = 3097-3) 7 6-25 [facility] HospitalEstimat Glomerular Filtration Rate 2019-02-19 06:14:00* Test Item Value Reference Range Interpretation Comments Estimat Glomerular Filtration Rate (test code = 143181195) 11 >60 Ranges were taken from the National Kidney Disease Education Program and the [facility] [employer] literature.Reference ranges:60 or greater: Mizyya87-54 ( for 3 consecutive months): Chronic kidney disease 15 or less: Kidney failureGonzales Memorial HospitalGlucose Ozwla2593-99-28 06:14:00* Test Item Value Reference Range Interpretation Comments Glucose Level (test code = QUF2537) 131 74-118 [facility] HospitalCalcium Mwvup9024-62-71 06:14:00* Test Item Value Reference Range Interpretation Comments Calcium Level (test code = 71106-2) 7.7 8.4-10.2 [facility] HospitalWhite Blood Zkwmx9394-84-91 06:03:00* Test Item Value Reference Range Interpretation Comments White Blood Count (test code = 6690-2) 6.77 4.8-10.8 [facility] HospitalRed Blood Mptcg5243-52-96 06:03:00* Test Item Value Reference Range Interpretation Comments Red Blood Count (test code = 789-8) 3.62 3.6-5.1 [facility] HospitalHemoglobin2019-05-20 06:03:00* Test Item Value Reference Range Interpretation Comments Hemoglobin (test code = 32722-0) 10.5 12.0-16.0 [facility] HospitalHematocrit2019-05-20 06:03:00* Test Item Value Reference Range Interpretation Comments Hematocrit (test code = 4544-3) 32.8 34.2-44.1 [facility] HospitalMean Corpuscular Jtflzp4137-70-20 06:03:00* Test Item Value Reference Range Interpretation Comments Mean Corpuscular Volume (test code = 787-2) 90.6 81-99 [facility] HospitalMean Corpuscular Imtewcaeof5516-91-75 06:03:00* Test Item Value Reference Range Interpretation Comments Mean Corpuscular Hemoglobin (test code = 785-6) 29.0 28-32 [facility] HospitalMean Corpuscular Hemoglobin Concent 2019-02-19 06:03:00* Test Item Value Reference Range Interpretation Comments Mean Corpuscular Hemoglobin Concent (test code = 786-4) 32.0 31-35 [facility] HospitalRed Cell Distribution Nlswy8164-55-48 06:03:00* Test Item Value Reference Range Interpretation Comments Red Cell Distribution Width (test code = 27090-7) 15.5 11.7 -14.4 [facility] HospitalPlatelet Kwump6754-68-16 06:03:00* Test Item Value Reference Range Interpretation Comments Platelet Count (test code = 777-3) 178 140-360 [facility] HospitalNeutrophils (%) (Auto)2019-02-19 06:03:00 * Test Item Value Reference Range Interpretation Comments Neutrophils (%) (Auto) (test code = 24572-6) 54.1 38.7-80.0 [facility] HospitalLymphocytes (%) (Auto)2019-02-19 06:03:00 * Test Item Value Reference Range Interpretation Comments Lymphocytes (%) (Auto) (test code = 736-9) 28.5 18.0-39.1 [facility] HospitalMonocytes (%) (Auto)2019-02-19 06:03:00* Test Item Value Reference Range Interpretation Comments Monocytes (%) (Auto) (test code = 5905-5) 9.7 4.4-11.3 [facility] HospitalEosinophils (%) (Auto)2019-02-19 06:03:00 * Test Item Value Reference Range Interpretation Comments Eosinophils (%) (Auto) (test code = 713-8) 6.8 0.0-6.0 [facility] HospitalBasophils (%) (Auto)2019-02-19 06:03:00* Test Item Value Reference Range Interpretation Comments Basophils (%) (Auto) (test code = 706-2) 0.6 0.0-1.0 [facility] HospitalIM GRANULOCYTES %2019-02-19 06:03:00* Test Item Value Reference Range Interpretation Comments IM GRANULOCYTES % (test code = IM GRANULOCYTES %) 0.3 0.0- 1.0 [facility] HospitalNeutrophils # (Auto)2019-02-19 06:03:00* Test Item Value Reference Range Interpretation Comments Neutrophils # (Auto) (test code = 751-8) 3.7 2.1-6.9 [facility] HospitalLymphocytes # (Auto)2019-02-19 06:03:00* Test Item Value Reference Range Interpretation Comments Lymphocytes # (Auto) (test code = 52416-7) 1.9 1.0-3.2 [facility] HospitalMonocytes # (Auto)2019-02-19 06:03:00* Test Item Value Reference Range Interpretation Comments Monocytes # (Auto) (test code = 742-7) 0.7 0.2-0.8 [facility] HospitalEosinophils # (Auto)2019-02-19 06:03:00* Test Item Value Reference Range Interpretation Comments Eosinophils # (Auto) (test code = 711-2) 0.5 0.0-0.4 [facility] HospitalBasophils # (Auto)2019-02-19 06:03:00* Test Item Value Reference Range Interpretation Comments Basophils # (Auto) (test code = 704-7) 0.0 0.0-0.1 [facility] HospitalAbsolute Immature Granulocyte (auto 2019-02-19 06:03:00* Test Item Value Reference Range Interpretation Comments Absolute Immature Granulocyte (auto (leslie t code = Absolute Immature Granulocyte (auto) 0.02 0-0.1 [facility] HospitalTotal Scyxtgdmx0169-70-86 06:45:00* Test Item Value Reference Range Interpretation Comments Total Bilirubin (test code = 1975-2) 0.5 0.2-1.2 [facility] HospitalAspartate Amino Transf (AST/SGOT) 2019-02-16 06:45:00* Test Item Value Reference Range Interpretation Comments Aspartate Amino Transf (AST/SGOT) (test code = Aspartate Amino Transf (AST/SGOT)) 15 5-34 [facility] HospitalAlanine Aminotransferase (ALT/SGPT) 2019-02-16 06:45:00* Test Item Value Reference Range Interpretation Comments Alanine Aminotransferase (ALT/SGPT) (test code = 1742-6) 12 0-55 [facility] HospitalTotal Iosdtan9144-44-66 06:45:00* Test Item Value Reference Range Interpretation Comments Total Protein (test code = 2885-2) 5.5 6.5-8.1 [facility] HospitalAlbumin2019-05-17 06:45:00* Test Item Value Reference Range Interpretation Comments Albumin (test code = 1751-7) 2.2 3.5-5.0 [facility] HospitalGlobulin2019-05-17 06:45:00* Test Item Value Reference Range Interpretation Comments Globulin (test code = 98748-2) 3.3 2.3-3.5 [facility] HospitalAlbumin/Globulin Nrjyr5287-28-40 06:45:00 * Test Item Value Reference Range Interpretation Comments Albumin/Globulin Ratio (test code = 1759-0) 0.7 0.8-2.0 [facility] HospitalAlkaline Lqazvvfqnko7017-94-29 06:45:00* Test Item Value Reference Range Interpretation Comments Alkaline Phosphatase (test code = 6768-6) 67 40-150 [facility] HospitalUS GUIDANCE FOR VASCULAR ZGBCW6926-23-96 07:00:00 [facility] [address] [place] [address] Patient Name: HEMANTH ARGUELLO MR #: [id number] : 1975 Age/Sex: 43/F Req #: [id number] Adm Physician: ARIANE PRIEST MD Ordered by: JENNIFER FELICIANO MD Report #: [id number] Location: ICU Room/Bed: ICU [facility] Procedure: [id number] US/U S GUIDANCE FOR VASCULAR ACCES Exam Date: 02/13/19 Ex am Time: 1645 REPORT STATUS: Signed Date and Time: 02/13/2019 Procedure: Temporary hemodialysis catheter catarino cement, right internal jugular approach brim greaser operator: Dr. Rucker Pre-operative diagnosis: Acute kidney injury, hyperkalemia Post-operative diagnosis: Acute kidney injury, hyperkalemia Conscious Sedation: Ativan 1 mg intravenous was administered by emergency center personnel The patient's heart rate and pulse oximetry were continuously monitored by the EC nurse. B lood pressure was monitored at 5 minute intervals. Additional Medications: Lidocaine 1% for local anesthesia Fluoroscopy time: 0.4 minutes Dose-area P roduct: 1.03 Gycm2. Contrast used: 0 Estimated blood loss: Minimal Bl ood products administered: None Specimens: None Implants: 13 Niuean 15 cm tr iple-lumen hemodialysis catheter Complications: No immediate Condition at co mpletion: Guarded Disposition: Returned to ER DISCUSSION: Informed c onsent was obtained by radio journalist and documented in the medical recor d. The patient was unable to tolerate supine positioning initially secondar y to dyspnea, though oxygen saturation remained adequate. After intravenous se dation was administered, the patient was successfully placed in the supine pos ition. The right cervical region was prepped and draped in standard sterile fashion. Sonographic evaluation confirmed patency of the right internal jugul ar vein, evidenced by compressibility. 1% lidocaine was infiltrated into the skin and subcutaneous tissues for local anesthesia. Then under continuous sonographic guidance, an 18-gauge singlewall needle was used to access the [facility] internal jugular vein. A permanent sonographic image was stored in the [employer] record. A 0.0 3 5-in. wire was advanced centrally into the IVC under fluo roscopic guidance. The needle was removed over the wire and the tract was dila elo. Then a 13 Niuean 15 cmtriple-lumen hi flow central venous catheter was ad vanced over the wire to full depth. The wire was removed, and the catheter tip was positioned at the superior cavoatrial junction. Each lumen showed adequate bidirectional flow and was flushed with sterile saline. The catheter was secured to the skin with monofilament nylon suture and a sterile dressing was applied. The patient tolerated the procedure well without immediate complica tion. FINDINGS: Patent right internal jugular vein. IMPRESSIO N: Successful placement of a 13 Niuean, 15 cm triple-lumen hemodialysis cat heter by a right internal jugular approach under sonographic and fluoroscopic guidance. Signed by: Dr. Pollo Rucker M.D. on 02/15/2019 7:05 AM Dictated By: POLLO RUCKER MD 4 COPY TO: PHYLLIS FELICIANO MD NON-TUNNELLED CVC CATH [id number] 07:00:00 [place] [address] Patient Name: HEMANTH ARGUELLO MR #: [id number] : 1975 Age/Sex: 43/F Req #: [id number] Adm Physician: ARIANE PRIEST MD Ordered by: JENNIFER FELICIANO MD Report #: [id number] Location: ICU Room/Bed: ICU [facility] Procedure: [id number] IR/N ON-TUNNELLED CVC CATH PLACMNT Exam Date: 02/13/19 Ex am Time: 1700 REPORT STATUS: Signed Date and Time: 02/13/2019 Procedure: Temporary hemodialysis catheter catarino cement, right internal jugular approach brim greaser operator: Dr. Rucker Pre-operative diagnosis: Acute kidney injury, hyperkalemia Post-operative diagnosis: Acute kidney injury, hyperkalemia Conscious Sedation: Ativan 1 mg intravenous was administered by emergency center personnel The patient's heart rate and pulse oximetry were continuously monitored by the EC nurse. B lood pressure was monitored at 5 minute intervals. Additional Medications: Lidocaine 1% for local anesthesia Fluoroscopy time: 0.4 minutes Dose-area P roduct: 1.03 Gycm2. Contrast used: 0 Estimated blood loss: Minimal Bl ood products administered: None Specimens: None Implants: 13 Niuean 15 cm tr iple-lumen hemodialysis catheter Complications: No immediate Condition at co mpletion: Guarded Disposition: Returned to ER DISCUSSION: Informed c onsent was obtained by radio journalist and documented in the medical recor d. The patient was unable to tolerate supine positioning initially secondar y to dyspnea, though oxygen saturation remained adequate. After intravenous se dation was administered, the patient was successfully placed in the supine pos ition. The right cervical region was prepped and draped in standard sterile fashion. Sonographic evaluation confirmed patency of the right internal jugul ar vein, evidenced by compressibility. 1% lidocaine was infiltrated into the skin and subcutaneous tissues for local anesthesia. Then under continuous sonographic guidance, an 18-gauge singlewall needle was used to access the [facility] internal jugular vein. A permanent sonographic image was stored in the [employer] record. A 0.0 3 5-in. wire was advanced centrally into the IVC under fluo roscopic guidance. The needle was removed over the wire and the tract was dila elo. Then a 13 Niuean 15 cmtriple-lumen hi flow central venous catheter was ad vanced over the wire to full depth. The wire was removed, and the catheter tip was positioned at the superior cavoatrial junction. Each lumen showed adequate bidirectional flow and was flushed with sterile saline. The catheter was secured to the skin with monofilament nylon suture and a sterile dressing was applied. The patient tolerated the procedure well without immediate complica tion. FINDINGS: Patent right internal jugular vein. IMPRESSIO N: Successful placement of a 13 Niuean, 15 cm triple-lumen hemodialysis cat heter by a right internal jugular approach under sonographic and fluoroscopic guidance. Signed by: Dr. Pollo Rucker M.D. on 02/15/2019 7:05 AM Dictated By: POLLO RUCKER MD 4 COPY TO: PHYLLIS FELICIANO MD Phosphorus [id number] 06:18:00* Test Item Value Reference Range Interpretation Comments Phosphorus Level (test code = NVM3468) 3.9 2.3-4.7 [facility] Hospital[facility] [id number] 06:18:00* Test Item Value Reference Range Interpretation Comments Magnesium Level (test code = 10044-0) 1.9 1.3-2.1 [facility] HospitalCH[facility] SINGLE (PORTABLE)2019-02-15 06:08:00 [place] [address] Patient Name: HEMANTH ARGUELLO MR #: [id number] : 1975 Age/Sex: 43/F Req #: [id number] Adm Physician: ARIANE PRIEST MD Ordered by: ARIANE PRIEST MD Report #: [id number] Location: ICU Room/Bed: ICU [facility] Procedure: [id number] DX/C HEST SINGLE (PORTABLE) Exam Date: 02/15/19 Exam Time : 0500 REPORT STATUS: Signed Exa mination: Single AP view of the chest. COMPARISON: Chest 2 views 02/13/2019 INDICATION: Acute renal failure, pulmonary edema IMPRESSION: 1. Lines and Tubes: Interval placement of right-sided IJ catheter with distal tip projecting in the proximal right atrium 2. Lungs are relatively well-in flated. Left retrocardiac density and obscuration of the left hemidiaphragm, l ikely reflecting left pleural effusion and associated atelectasis, which is de creased since the prior exam. Interval resolution of previously visualized rig ht pleural effusion and atelectasis.. 3. Stable enlargement of the cardiac si lhouette. Improved central pulmonary venous congestion and interstitial perih ilar pulmonary edema 4. No acute bony abnormalities. Signed by: Dr. Andrews Nolasco M.D. on 02/15/2019 6:10 AM Dictated By: AKOSUA NOLASCO MD 9 Transcribed By: MELISSA GONGORA on 02/15/19609 COPY TO: ARIANE PRIEST MD Hepatitis B Surface Antibody, Znnna0721-80-73 04:40:00* Test Item Value Reference Range Interpretation Comments Hepatitis B Surface Antibody, Quant (test code = 5194-6) <3.1 Immunity>9.9 Status of Immunity Anti-HBs Level Inconsistent with Immunity 0.0 - 9.9Consistent with Immunity >9.9[facility] Core Total Xjekccmn8806-75-74 04:40:00* Test Item Value Reference Range Interpretation Comments Hepatitis B Core Total Antibody (test code = 23577-2) Negative Negative Performed at: - [facility] [address] [id number] Director: Jose Alejandro Nunez MD, Phone: [phone] Memorial HospitalHepatitis B Surface Hkmcrnk0462-15-51 04:39:00* Test Item Value Reference Range Interpretation Comments Hepatitis B Surface Antigen (test code = 5196-1) Negative Negat giselle [facility] HospitalArterial Blood [id number] 11:06:00* Test Item Value Reference Range Interpretation Comments Arterial Blood pH (test code = 2744-1) 7.41 7.31-7.41 [facility] HospitalArterial Blood Partial Pressure CO2 2019-02-14 11:06:00* Test Item Value Reference Range Interpretation Comments Arterial Blood Partial Pressure CO2 (test code = 2019-05) 38 41-51 [facility] HospitalArterial Blood Partial Pressure O2 2019-02-14 11:06:00* Test Item Value Reference Range Interpretation Comments Arterial Blood Partial Pressure O2 (test code = 2019-05) 164 80-105 [facility] HospitalArterial Blood [id number] 11:06:00* Test Item Value Reference Range Interpretation Comments Arterial Blood HCO3 (test code = 1960-4) 24 23-28 [facility] HospitalAr[facility]ial Blood Base [id number] 11:06:00* Test Item Value Reference Range Interpretation Comments Arterial Blood Base Excess (test code = 1925-7) -1.0 -2-3 [facility] HospitalArterial Blood Oxygen Saturation 2019-02-14 11:06:00* Test Item Value Reference Range Interpretation Comments Arterial Blood Oxygen Saturation (test code = 2708-6) 100.0 95-98 [facility] HospitalFiO22019-05-15 11:06:00* Test Item Value Reference Range Interpretation Comments FiO2 (test code = FiO2) 40 BIPAP 12/8 14 40% RIGHT RADIALGonzales Memorial HospitalCreatine Kinase [id number] 08:50:00* Test Item Value Reference Range Interpretation Comments Creatine Kinase MB (test code = 03381-1) 4.80 0-5.0 [facility] HospitalTroponin [id number] 08:50:00* Test Item Value Reference Range Interpretation Comments Troponin I (test code = ANX6450) 0.061 0-0.300 [facility] HospitalCreatine Isrvxa4716-93-22 08:44:00* Test Item Value Reference Range Interpretation Comments Creatine Kinase (test code = 2157-6) 136 29-168 [facility] HospitalTriglycerides Gyldt4228-16-56 05:33:00* Test Item Value Reference Range Interpretation Comments Triglycerides Level (test code = 2571-8) 108 0-149 [facility] HospitalCholesterol Cpusc7796-27-16 05:33:00* Test Item Value Reference Range Interpretation Comments Cholesterol Level (test code = 2093-3) 161 0-199 Less than 200 mg/dL Low Iyyl433 - 239 mg/dL Borderline Xgvh717 m g/dl and greater High Risk [facility] HospitalLDL Udjenxjzlnj7301-23-52 05:33:00* Test Item Value Reference Range Interpretation Comments LDL Cholesterol (test code = 2089-1) 100 60-130 [facility] HospitalHDL Ueufqgcupqy9958-32-00 05:33:00* Test Item Value Reference Range Interpretation Comments HDL Cholesterol (test code = 2085-9) 39 40-60 [facility] HospitalCholesterol/HDL Nfdvp1218-62-67 05:33:00 * Test Item Value Reference Range Interpretation Comments Cholesterol/HDL Ratio (test code = 9830-1) 4.1 3.0-3.6 [facility] HospitalUS RENAL RETROPERITONEAL [id number] 19:33:00 [place] [address] Patient Name: HEMANTH ARGUELLO MR #: [id number] : 1975 Age/Sex: 43/F Req #: [id number] Adm Physician: ARIANE PRIEST MD Ordered by: JENNIFER FELICIANO MD Report #: [id number] Location: [facility] Room/Bed: [place] [address] Procedure: [id number] US/U S RENAL RETROPERITONEAL COMP Exam Date: 02/13/19 Jeannette gomez Time: 1905 REPORT STATUS: Signed RENAL ULTRASOUND TECHNIQUE: Ultrasound evaluation of the KIDNEYS. Col or Doppler evaluation was utilized to supplement the evaluation. HISTORY: Shortness of breath, acute kidney injury COMPARISON: None available. DISCUSSION: RIGHT KIDNEY: The right kidney measures 10 cm in length. The c ortex measures 1 cm in thickness. Parenchyma is within normal limits. No hyd ronephrosis or solid mass lesions. LEFT KIDNEY: The left kidney measures 9 cm in length. The cortex measures 1.1 cm in thickness. Parenchyma is with in normal limits. No hydronephrosis or solid mass lesions. BLADDER: Dec ompressed via a Youssef catheter. PROSTATE: Normal prostate less than 30 cc IMPRESSION: No sonographic abnormality. Signed by: Jose McODamián, M.M.M. on 02/13/2019 7:35 PM Dictated By: JONAH PALM DO 34 Transcribed By: PRIYA on 02/13/191934 COPY TO: JENNIFER FELICIANO MD Urine WBC 2019-02-13 16:48:00* Test Item Value Reference Range Interpretation Comments Urine WBC (test code = 5821-4) NONE 0-5 [facility] HospitalUrine [id number] 16:48:00* Test Item Value Reference Range Interpretation Comments Urine RBC (test code = 56025-1) 6-10 0-5 [facility] HospitalUrine Ilbsffxv2790-15-29 16:48:00* Test Item Value Reference Range Interpretation Comments Urine Bacteria (test code = 07869-2) MODERATE NONE [facility] HospitalUrine Epithelial Mzuhp2951-41-11 16:48:00 * Test Item Value Reference Range Interpretation Comments Urine Epithelial Cells (test code = 68608-5) MANY NONE [facility] HospitalUrine Transitional Epithelial Cells 2019-02-13 16:48:00* Test Item Value Reference Range Interpretation Comments Urine Transitional Epithelial Cells (test code = 8249-5) MODERATE NONE [facility] HospitalUrine Hnpic1721-17-09 16:42:00* Test Item Value Reference Range Interpretation Comments Urine Color (test code = 5778-6) YELLOW YELLOW [facility] HospitalUrine Devaqyp0883-33-57 16:42:00* Test Item Value Reference Range Interpretation Comments Urine Clarity (test code = 44195-0) SL CLOUDY CLEAR [facility] Specific Esfnsia9151-95-47 16:42:00 * Test Item Value Reference Range Interpretation Comments Urine Specific [place] (test code = 5811-5) 1.020 1.010-1.02 5 [facility] HospitalUrine [id number] 16:42:00* Test Item Value Reference Range Interpretation Comments Urine pH (test code = 67139-3) 6 5-7 [facility] Leukocyte Rcyhfmtm8830-68-13 16:42:00* Test Item Value Reference Range Interpretation Comments Urine Leukocyte Esterase (test code = 5799-2) NEGATIVE NEGATIVE [facility] Uesivuq7844-82-96 16:42:00* Test Item Value Reference Range Interpretation Comments Urine Nitrite (test code = 12282-2) NEGATIVE NEGATIVE [facility] Jtarrwi7239-43-90 16:42:00* Test Item Value Reference Range Interpretation Comments Urine Protein (test code = 5804-0) 2+ NEGATIVE [facility] Glucose (UA)2019-02-13 16:42:00* Test Item Value Reference Range Interpretation Comments Urine Glucose (UA) (test code = 2349-9) 2+ NEGATIVE [facility] HospitalUrine Lwmbafw3693-95-26 16:42:00* Test Item Value Reference Range Interpretation Comments Urine Ketones (test code = 96805-3) NEGATIVE NEGATIVE [facility] HospitalUrine Kqlpwtymggbn7835-88-76 16:42:00* Test Item Value Reference Range Interpretation Comments Urine Urobilinogen (test code = 14442-0) 0.2 0.2-1 [facility] HospitalUrine Kffmsmuwz3974-15-32 16:42:00* Test Item Value Reference Range Interpretation Comments Urine Bilirubin (test code = 1978-6) NEGATIVE NEGATIVE [facility] HospitalUrine Hirxo6327-38-50 16:42:00* Test Item Value Reference Range Interpretation Comments Urine Blood (test code = 00450-6) 1+ NEGATIVE [facility] HospitalB-Type Natriuretic Vqgpvrk5747-26-80 16:09:00* Test Item Value Reference Range Interpretation Comments B-Type Natriuretic Peptide (test code = 71956-9) 2959.1 0-100 [facility] HospitalProthrombin Rlhp3771-83-16 15:47:00* Test Item Value Reference Range Interpretation Comments Prothrombin Time (test code = 5902-2) 13.9 11.9-14.5 [facility] HospitalProthromb Time International Ratio 2019-02-13 15:47:00* Test Item Value Reference Range Interpretation Comments Prothromb Time International Ratio (test code = 6301-6) 1.02 Oral Anticoagulant Therapy INR Values:1. Low Intensity Therapy 1.5 - 2.02 . Moderate Intensity Therapy 2.0 - 3.03. High Intensity Therapy(1) 2.5 - 3. 54. High Intensity Therapy(2) 3.0 - 4.05. Panic Value INR > 5.0 [facility] HospitalActivated Partial Thromboplast Time 2019-02-13 15:47:00* Test Item Value Reference Range Interpretation Comments Activated Partial Thromboplast Time (test code = 87035-1) 31.9 23.8-35.5 [facility] HospitalCHEST 2 [id number] 14:51:00 [facility] [address] [place] [address] Patient Name: HEMANTH ARGUELLO MR #: [id number] : 1975 Age/Sex: 43/F Req #: [id number] Adm Physician: Ordered by: JENNIFER FELICIANO MD Report #: [id number] Location: ER Room/Bed: Procedure: [id number] DX/CH EST 2 VIEWS Exam Date: 02/13/19 Exam Time: 1435 REPORT STATUS: Signed EXAMINATION: PA and lateral views of the chest. COMPARISON: 11/07/2018 CLINICAL HIS TORY: Shortness of breath DISCUSSION: Lungs are reasonably well inflated. Moderate left and small right pleural effusion with adjacent basal a irspace opacities, likely passive atelectasis. Cardiomediastinal contour is ob scured. Prominence of the perihilar pulmonary interstitium. No acute osse ous abnormality. IMPRESSION: Findings compatible with interstitial pulmo nary edema, moderate left and small right pleural effusion with probable passi ve atelectasis of the lower lung zones. Signed by: Dr. Pollo Rucker M.D. on 02/13/2019 2:54 PM Dictated By: POLLO RUCKER MD Electr onically Signed By: POLLO RUCKER MD on 02/13/19 1688 Transcribed By: PRIYA santana 02/13/19 8823 COPY TO: JENNIFER FELICIANO MD CHEST 2 VIEWS 2018-11-07 14:06:00 [place] [address] Patient Name: HEMANTH ARGUELLO MR #: [id number] : 1975 Age/Sex: 43/F Req #: [id number] Adm Physician: Ordered by: KHRIS HAINES, REJI Saavedra MD Report #: [id number] Location: [facility] Room/Bed: Procedure: [id number] DX/CHEST 2 VIEWS Exam Date: 11/07/18 Exam Time: 1320 REPORT STATUS: Signed EXAM: EST 2 VIEWS, PA and lateral DATE: 11/07/2018 Time stamp on exam: 1:28 PM INDIC ATION: Pneumonia COMPARISON: None FINDINGS: LINES/TUBES: None LUNG S: Bibasilar areas of stranding opacities; right side greater than left. P LEURA: Bilateral small pleural effusions; left side greater than right HEAR T AND MEDIASTINUM: Normal size and contour. BONES AND SOFT TISSUES: No acut e findings. IMPRESSION: Bibasilar opacities termite control representative of multifocal pneumonia with small pleural effusions. Signed by: Dr. Adan Sanon DO on 11/07/2018 2:09 PM Dictated By: ADAN Sandoval Signed By: ADAN SANON DO on 11/07/181408 Transcribed By: PRIYA on 0 11/07/181408 COPY TO: REJI PINEDO CBC W/AUTO [id number] 07:16:00* Test Item Value Reference Range Interpretation Comments WHITE BLOOD CELL (test code = WBC) 9.6 K/mm3 4.5-12.5 N RED BLOOD CELL (test code = RBC) 2.56 mill/mm3 3.7-5.2 L HEMOGLOBIN (test code = HGB) 7.4 gram/dL 11.5-15.5 L HEMATOCRIT (test code = HCT) 24.5 % 36.0-46.0 L MEAN CELL VOLUME (test code = MCV) 95.7 fL 80-98 N MEAN CELL HGB (test code = MCH) 28.9 picogram 27.0-33.0 N MEAN CELL HGB CONCETRATION (test code = MCHC) 30.2 gram/dL 33.0-36. 0 L RED CELL DISTRIBUTION WIDTH (test code = RDW) 14.1 % 11.6-16. 2 N RED CELL DISTRIBUTION WIDTH SD (test code = RDW-SD) 48.9 fL 37 .0-51.0 N PLATELET COUNT (test code = PLT) 234 K/mm3 150-450 N MEAN PLATELET VOLUME (test code = MPV) 10.1 fL 6.7-11.0 N NEUTROPHIL % (test code = NT%) 70.1 % 39.0-69.0 H IMMATURE GRANULOCYTE % (test code = IG%) 0.4 % 0.0-5.0 N LYMPHOCYTE % (test code = LY%) 20.5 % 25.0-55.0 L MONOCYTE % (test code = MO%) 4.8 % 0.0-10.0 N EOSINOPHIL % (test code = EO%) 4.0 % 0.0-5.0 N BASOPHIL % (test code = BA%) 0.2 % 0.0-1.0 N NUCLEATED RBC % (test code = NRBC%) 0.0 % 0-0 N NEUTROPHIL # (test code = NT#) 6.75 K/mm3 1.8-7.7 N IMMATURE GRANULOCYTE # (test code = IG#) 0.04 x10 3/uL 0-0.03 H LYMPHOCYTE # (test code = LY#) 1.98 K/mm3 1.0-5.0 N MONOCYTE # (test code = MO#) 0.46 K/mm3 0-0.8 N EOSINOPHIL # (test code = EO#) 0.39 K/mm3 0.0-0.5 N BASOPHIL # (test code = BA#) 0.02 K/mm3 0.0-0.2 N NUCLEATED RBC # (test code = NRBC#) 0.00 K/mm3 0.0-0.1 N BASIC METABOLIC [id number] 06:05:00* Test Item Value Reference Range Interpretation Comments SODIUM (test code = NA) 145 mmol/L 136-145 N POTASSIUM (test code = K) 5.1 mmol/L 3.5-5.1 N CHLORIDE (test code = CL) 116.0 mmol/L 98-107 H CARBON DIOXIDE (test code = CO2) 20.0 mmol/L 21-32 L ANION GAP (test code = GAP) 14.1 10-20 N GLUCOSE (test code = GLU) 131 mg/dL 74-106 H BLOOD UREA NITROGEN (test code = BUN) 70 mg/dL 7-18 H GLOMERULAR FILTRATION RATE (test code = GFR) 10 mL/min >=60 Estimated GFR by using Modified MDRD formula.Chronic kidney disease is defined as either kidney damageor GFR <60 mL/min/1.73 m2 for >3 months. CREATININE (test code = CREAT) 4.60 mg/dL 0.55-1.02 H Note change in reference range due to change in reagent. BUN/CREATININE RATIO (test code = BUN/CREA) 15.3 10-20 N CALCIUM (test code = CA) 7.1 mg/dL 8.5-10.1 L BASIC METABOLIC [id number] 06:01:00* Test Item Value Reference Range Interpretation Comments SODIUM (test code = NA) 145 mmol/L 136-145 N POTASSIUM (test code = K) 5.1 mmol/L 3.5-5.1 N CHLORIDE (test code = CL) 116.0 mmol/L 98-107 H CARBON DIOXIDE (test code = CO2) mmol/L 21-32 ANION GAP (test code = GAP) 10-20 GLUCOSE (test code = GLU) mg/dL 74-106 BLOOD UREA NITROGEN (test code = BUN) mg/dL 7-18 GLOMERULAR FILTRATION RATE (test code = GFR) mL/min >=60 CREATININE (test code = CREAT) mg/dL 0.55-1.02 BUN/CREATININE RATIO (test code = BUN/CREA) 10-20 CALCIUM (test code = CA) 7.1 mg/dL 8.5-10.1 L ANTINUCLEAR ANTIBODIES [id number] 04:11:00* Test Item Value Reference Range Interpretation Comments XANDER SCREEN (test code = ANASCR) Negative Negative Performed At: [facility] [address] [id number] Mancilla MD Ph:[phone] HEPATITIS B [id number] 04:11:00* Test Item Value Reference Range Interpretation Comments AB HEPATITIS B SURFACE (test code = HBSAB) Non Reactive () Non Reactive: Inconsistent with immunity, less than 10 mIU/mL Reactive: Consistent with immunity, greater than 9.9 mIU/mLPerformed At: [facility] [address] [id number] Mancilla MD Ph:[phone] At: [facility] [id number] Sanjai MD P h:[phone] AG HEPAT B SURF (test code = HBSAG) Negative Negative HEPATITIS B CORE ANTIBODY,TOT (test code = HBCAB) Negative Nega tive HEPATITIS B CORE ANTIBODY,IGM (test code = HBCMAB) Negative Neg ative AG HEPATITIS BE (test code = HBEAG) Negative Negative AB HEPATITIS BE (test code = HBEAB) Negative Negative ACUTE HEPATITIS [id number] 04:11:00* Test Item Value Reference Range Interpretation Comments AB HEPATITIS A IGM (test code = HAVMAB) Negative Negative AB HEPATITIS C (test code = HCVAB) <0.1 0.0-0.9 INFCE Result Units: s/co ratio Negative: < 0.8 Indeterminate: 0.8 - 0.9 Positive: > 0.9 The CDC recommends that a positive HCV antibody result be followed up with a HCV Nucleic Acid Amplification test ([id number]).Performed At: [facility] [address] [id number] Kyle L MD Ph:[phone] NEUTROPHIL CYTOPLASMIC [id number] 04:11:00* Test Item Value Reference Range Interpretation Comments AB ANTI-NEUTROPHIL CYTOPLASMIC (test code = NEUTCAB) <1:20 titer N eg:<1:20 AB ANTI-NEUTROPHIL CYTO. P (test code = NEUTCAB-P) <1:20 titer Neg :<1:20 The presence of positive fluorescence exhibiting P-ANCA orC-ANCA patterns alone is not specific for the diagnosis ofWegener's Granulomatosis (WG) or microscopic polyangiitis.Decisions about treatment should not be based solely onANCA IFA results. The International ANCA Group Consensusrecommends follow up testing of positive sera with both ND-3 and MPO-ANCA enzyme immunoassays. As many as 5% serumsamples are positive only by EIA. Ref. AM J Clin Kflzrt2087;111:507-513. ATYPICAL ANCA (test code = ANCACOM) <1:20 titer Neg:<1:20 The atypical pANCA pattern has been observed in asignificant percentage of patients with ulcerative colitis,primary sclerosing cholangitis and autoimmune hepatitis.Performed At: [facility] [address] [id number] Sanjai MD Ph:[phone] AB DNA DOUBLE [id number] 04:11:00* Test Item Value Reference Range Interpretation Comments AB DNA DOUBLE STRAND (test code = DNADSAB) <1 IU/mL 0-9 Negative <5 Equivocal 5 - 9 Positive >9 ANTINUCLEAR ANTIBODIES [id number] 17:10:00* Test Item Value Reference Range Interpretation Comments XANDER SCREEN (test code = ANASCR) Negative Negative Performed At: [facility] [address] [place], [place] [id number] Jose Alejandro Mancilla MD Ph:[phone] HEPATITIS B [id number] 17:10:00* Test Item Value Reference Range Interpretation Comments AB HEPATITIS B SURFACE (test code = HBSAB) NEGATIVE AG HEPAT B SURF (test code = HBSAG) Index Nonreactive HEPATITIS B CORE ANTIBODY,TOT (test code = HBCAB) NEGA TIVE HEPATITIS B CORE ANTIBODY,IGM (test code = HBCMAB) NEG ATIVE AG HEPATITIS BE (test code = HBEAG) NEGATIVE AB HEPATITIS BE (test code = HBEAB) NEG ACUTE HEPATITIS [id number] 17:10:00* Test Item Value Reference Range Interpretation Comments AB HEPATITIS A IGM (test code = HAVMAB) Negative Negative AB HEPATITIS C (test code = HCVAB) <0.1 0.0-0.9 INFCE Result Units: s/co ratio Negative: < 0.8 Indeterminate: 0.8 - 0.9 Positive: > 0.9 The CDC recommends that a positive HCV antibody result be followed up with a HCV Nucleic Acid Amplification test (301870).Performed At: [facility] [address] [place], [place] [id number] Jose Alejandro Mancilla MD Ph:[phone] NEUTROPHIL CYTOPLASMIC [id number] 17:10:00* Test Item Value Reference Range Interpretation Comments AB ANTI-NEUTROPHIL CYTOPLASMIC (test code = NEUTCAB) <1:20 titer N eg:<1:20 AB ANTI-NEUTROPHIL CYTO. P (test code = NEUTCAB-P) <1:20 titer Neg :<1:20 The presence of positive fluorescence exhibiting P-ANCA orC-ANCA patterns alone is not specific for the diagnosis ofWegener's Granulomatosis (WG) or microscopic polyangiitis.Decisions about treatment should not be based solely onANCA IFA results. The International ANCA Group Consensusrecommends follow up testing of positive sera with both ND-3 and MPO-ANCA enzyme immunoassays. As many as 5% serumsamples are positive only by EIA. Ref. AM J Clin Xwkmpn6922;111:507-513. ATYPICAL ANCA (test code = ANCACOM) <1:20 titer Neg:<1:20 The atypical pANCA pattern has been observed in asignificant percentage of patients with ulcerative colitis,primary sclerosing cholangitis and autoimmune hepatitis.Performed At: [address] [id number] Sanjai MD Ph:[phone] AB DNA DOUBLE [id number] 17:10:00* Test Item Value Reference Range Interpretation Comments AB DNA DOUBLE STRAND (test code = DNADSAB) <1 IU/mL 0-9 Negative <5 Equivocal 5 - 9 Positive >9 KIDNEY,[id number] 15:18:00 RUN DATE: 10/31/18 [employer] PAGE 1 RUN TIME: 1518 Specimen Inqui ry RUN USER: INTERFACE PATIENT: HEMANTH ARGUELLO ACCT #: V [id number] LOC: Scott3SOBS U #: [id number] AGE/SX: 43/F ROOM: [facility] RE10/27/18REG DR: Ariane Priest MD : 77 BED: B DIS: STATUS: ADM IN TLOC: SPEC #: [id number] RECD: 10/31/18 STATUS: GEGE BARRON #: [id number] SWEETIE: 10/31/18 DR: Charan Phillip MD ENTERED: 10/31/18 SP TYPE: BX KIDNEY OTHR DR: Raymundo Kumar MD, Alberto J MDORDERED: LUCHO [place]: [place] [address] [facility] [address] [place] [address] Charan Phillip MD [address] [place] [address] Reji Pinedo MD [address] [place] [address] PROCEDURES: GROSS (10/31/18-1506) TISSUES: KIDNEY, NOS - BX S/O [place] CLINICAL HISTORY COLLECTI ON DATE: 10/31/2018 RENAL FAILURE FINAL DIAGNOSIS Right renal bi opsy: CORE BIOPSY MATERIAL TO BE SENT TO THE [facility] IN [place] FOR PROCESSING AND EVALUATION FA/padmaja Robb [id number] CONTINUED ON NEXT PAGE RUN DATE: 10/31/18 [facility] PAGE 2 RUN TIME: 1518 Specimen Inquiry RUN USER: INTERFACE SPEC #: [id number] PATIENT: HEMANTH ARGUELLO #[id number] (Continued) MACROSCOPIC The speci men consists of three core biopsies received for STAT examination. These are examined under light microscopy and reveal that all three cores have at least one or two rounded structures compatible with glomeruli. The cores measures 0 .9, 1.0 and 1.2 cm in length and less than 0.1 cm in diameter. Right clarence al biopsy Intraoperative consult: ROUNDED STRUCTURE CONSISTENT WITH GLOME RULI PRESENT (FA) The tissue is equally divided and submitted in Yousuf's and Alfred's fixatives. The tissue will be transported to [place] [facility] for pro cessing and evaluation. GROSS PERFORMED AT [facility]Y [address] [facility] [place] [address] (P)[phone] Signed SIGNATURE ON FILE Joseph Harvey 10/31 1518 END OF REPORT KIDNEY,[id number] 15:18:00 RUN DATE: 11/07/18 [facility] PAGE 1 RUN TIME: 1607 Specimen Inqui ry RUN USER: INTERFACE PATIENT: HEMANTH ARGUELLO ACCT #: V [id number] LOC: Scott3SOBS U #: [id number] AGE/SX: 43/F ROOM: [facility] RE10/27/18[facility] DR: Ariane Priest MD : 77 BED: B DIS: 11/01/18 STATUS: DIS IN TLOC: SPEC #: [id number] RECD: 10/31/18 STATUS: GEGE BARRON #: [id number] SWEETIE: 10/31/18- SUBM DR: Charan Phillip MD ENTERED: 10/31/18 SP TYPE: BX KIDNEY OTHR DR: Raymundo Kumar MD, Alberto J MDORDERED: GROSS [place]: [place] [address] 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 Although eosinophils are present in the inflammatory infiltrates of this case, a study of the significance of eosino phils in diabetic nephropathy (DN) found that when compared with other types of glomerulopathy, inflammation with eosinophils was associated with the severity of IFTA but not with prescribed medications or clinical history of allergy. Anthony Mcnamara II, MD, PhD [facility] Refer to [place] [facility] report sp ecimen: [id number] for additional information. Addendum Signed SIGNATURE ON JAMA HarveyEdgardell 11/07/18 1607 CLINICAL HISTORY COLLECTION DATE: 10/31/2018 RENAL FAILURE FINAL DIAGNOS IS Right renal biopsy: CORE BIOPSY MATERIAL TO BE SENT TO THE [facility] IN [place] FOR PROCESSING AND EVALUATION FA/ D [id number] MACROSCOPIC The specimen consists of three core biopsies received for STAT examination. These are examined under light microscopy and reveal that all three cores have at least one or two rounded s tructures compatible with glomeruli. The cores measures 0.9, 1.0 and 1.2 cm i n length and less than 0.1 cm in diameter. Right renal biopsy Intraopera tive consult: ROUNDED STRUCTURE CONSISTENT WITH GLOMERULI PRESENT (FA) The tissue is equally divided and submitted in Yousuf's and Alfred's fixativ es. The tissue will be transported to [place] [facility] for processing and evaluati on. GROSS PERFORMED AT [facility] CONTINUED ON NEXT PAGE RUN DATE: 11/07/18 [facility] PAGE 3 RUN TIME: 1607 Specimen Inquiry RUN USER: INTERFACE SPEC #: [id number] PATIENT: HEMANTH ARGUELLO #[id number] (Continued)--- --------- MACROSCOPIC (Continued) [facility] [address] [place] [address] (P)[phone] Sig paco SIGNATURE ON FILE Joseph Harvey 10/31/18 1518 END OF REPORT - USG NDL PLACEMENT (Bxg/Asp)2018-10-31 13:38:00 Name: HEMANTH ARGUELLO [facility] : 1975 Age/S: 43 / F [address] [facility] Unit #: [id number] Loc: [place] [address] Phys: Charan Phillip MD Acct: [id number] Dis Date: Status: ADM IN PHONE #: Exam Date: 10/31/2018 1230 FAX #: Reason: RENAL FAILURE. EXAMS: CPT CODE: [id number] USG NDL PLACE MENT (Bxg/Asp) 12[address] REASON FOR EXAM:Acute clarence al failure PROCEDURE: Ultrasound guided right kidney biopsy Ccil-bx-meno approximate procedure time is 45 minutes FIND INGS: After informed consent was obtained, the patient was brought to spec ial procedures and placed supine on the table. The right flank was prepped was draped in the usual fashion. All elements of maximal sterile barrier techniques were applied. Ultrasound demonstrates patency of the basilic vein. The right kidney measured 10.9 x 4.2 cm. Under direct ultrasound nessa dancharlotte, a guiding needle was advanced into the right renal cortex (inferior pole). 3 passes were made with a 20-gauge biopsy gun. The pathologist (Dr. Palm) was present on site for assessment of samples MEDI CATIONS: 1 mg of Versed, 50 mcg of fentanyl COMPLICATIONS: None Bloo d loss: Less than 5 mL IMPRESSION: Technically successful ultras ound-guided core biopsy of a right renal cortex Electronical ly Signed by Virginia Phillip on 10/31/2018 at 1338 Reported and signed by: Charan Phillip M.D. CC: Ariane Priest MD; Mag Pinedo MD Technologist: ONELIA HANNAH(R),RDMS Trnscb Date/Time: 10/31/2018 (8486) tTOMMIEL Orig Print D/T: S: 10/31/2018 (3527) Probe: PAGE 1 Signed Report UR SMEAR EOSINOPHIL [id number] 12:13:00* Test Item Value Reference Range Interpretation Comments UR SMEAR EOSINOPHIL COUNT (test code = EOSCTU) NONE SEEN per HPF NO NE SEEN UR ELECTROPHORESIS VAIBHAV [id number] 12:13:00* Test Item Value Reference Range Interpretation Comments IMMUNOFIXATION URINE (test code = IMMFIXU) SCREEN () An apparent normal immunofixation pattern. UR TOTAL PROTEIN (test code = PROTEU) 1089.4 mg/dL Not Estab. Results confirmed ondilution. UR MKFKN-0-LGBSOJCU (test code = A1GU) 7.8 % () UR KUIPA-8-HGGXUDDV (test code = A2GU) 9.1 % () UR BETA GLOBULIN (test code = BGU) 13.5 % () UR GAMMA GLOBULIN (test code = GGU) 9.5 % () MONOCLONAL SPIKE (test code = MONOSPIKE) Not Observed % Not Observe d UR ALBUMIN QUANT (test code = ALBU) 60.0 % () COMPLEMENT [id number] 12:13:00* Test Item Value Reference Range Interpretation Comments COMPLEMENT C3 (test code = COMC3) mg/dL COMPLEMENT [id number] 12:13:00* Test Item Value Reference Range Interpretation Comments COMPLEMENT C4 (test code = COMC4) 52 mg/dL 14-44 A COMPLEMENT [id number] 12:13:00* Test Item Value Reference Range Interpretation Comments COMPLEMENT C3 (test code = COMC3) 143 mg/dL 82-167 Performed At: [facility] [address] [id number] Kyle L MD Ph:[phone] COMPLEMENT [id number] 12:13:00* Test Item Value Reference Range Interpretation Comments COMPLEMENT C4 (test code = COMC4) 52 mg/dL 14-44 A ANTINUCLEAR ANTIBODIES [id number] 08:18:00* Test Item Value Reference Range Interpretation Comments XANDER SCREEN (test code = ANASCR) HEPATITIS B [id number] 08:18:00* Test Item Value Reference Range Interpretation Comments AB HEPATITIS B SURFACE (test code = HBSAB) NEGATIVE AG HEPAT B SURF (test code = HBSAG) Index Nonreactive HEPATITIS B CORE ANTIBODY,TOT (test code = HBCAB) NEGA TIVE HEPATITIS B CORE ANTIBODY,IGM (test code = HBCMAB) NEG ATIVE AG HEPATITIS BE (test code = HBEAG) NEGATIVE AB HEPATITIS BE (test code = HBEAB) NEG ACUTE HEPATITIS [id number] 08:18:00* Test Item Value Reference Range Interpretation Comments AB HEPATITIS A IGM (test code = HAVMAB) Negative Negative AB HEPATITIS C (test code = HCVAB) <0.1 0.0-0.9 INFCE Result Units: s/co ratio Negative: < 0.8 Indeterminate: 0.8 - 0.9 Positive: > 0.9 The CDC recommends that a positive HCV antibody result be followed up with a HCV Nucleic Acid Amplification test ([id number]).Performed At: [facility] [address] [id number] Mancilla MD Ph:[phone] NEUTROPHIL CYTOPLASMIC [id number] 08:18:00* Test Item Value Reference Range Interpretation Comments AB ANTI-NEUTROPHIL CYTOPLASMIC (test code = NEUTCAB) < 1:20 AB ANTI-NEUTROPHIL CYTO. P (test code = NEUTCAB-P) <1: 20 ATYPICAL ANCA (test code = ANCACOM) <1:20 AB DNA DOUBLE [id number] 08:18:00* Test Item Value Reference Range Interpretation Comments AB DNA DOUBLE STRAND (test code = DNADSAB) <1 IU/mL 0-9 Negative <5 Equivocal 5 - 9 Positive >9 ANTINUCLEAR ANTIBODIES [id number] 08:18:00* Test Item Value Reference Range Interpretation Comments XANDER SCREEN (test code = ANASCR) Negative Negative Performed At: [facility] [address] [id number] Mancilla MD Ph:[phone] HEPATITIS B [id number] 08:18:00* Test Item Value Reference Range Interpretation Comments AB HEPATITIS B SURFACE (test code = HBSAB) NEGATIVE AG HEPAT B SURF (test code = HBSAG) Index Nonreactive HEPATITIS B CORE ANTIBODY,TOT (test code = HBCAB) NEGA TIVE HEPATITIS B CORE ANTIBODY,IGM (test code = HBCMAB) NEG ATIVE AG HEPATITIS BE (test code = HBEAG) NEGATIVE AB HEPATITIS BE (test code = HBEAB) NEG ACUTE HEPATITIS [id number] 08:18:00* Test Item Value Reference Range Interpretation Comments AB HEPATITIS A IGM (test code = HAVMAB) Negative Negative AB HEPATITIS C (test code = HCVAB) <0.1 0.0-0.9 INFCE Result Units: s/co ratio Negative: < 0.8 Indeterminate: 0.8 - 0.9 Positive: > 0.9 The CDC recommends that a positive HCV antibody result be followed up with a HCV Nucleic Acid Amplification test ([id number]).Performed At: [facility] [id number] Kyle L MD Ph:[phone] NEUTROPHIL CYTOPLASMIC [id number] 08:18:00* Test Item Value Reference Range Interpretation Comments AB ANTI-NEUTROPHIL CYTOPLASMIC (test code = NEUTCAB) < 1:20 AB ANTI-NEUTROPHIL CYTO. P (test code = NEUTCAB-P) <1: 20 ATYPICAL ANCA (test code = ANCACOM) <1:20 AB DNA DOUBLE [id number] 08:18:00* Test Item Value Reference Range Interpretation Comments AB DNA DOUBLE STRAND (test code = DNADSAB) <1 IU/mL 0-9 Negative <5 Equivocal 5 - 9 Positive >9 AB HEPATITIS [id number] 07:27:00* Test Item Value Reference Range Interpretation Comments AB HEPATITIS C (test code = HCVAB) <0.1 0.0-0.9 INFCE Result Units: s/co ratio Negative: < 0.8 Indeterminate: 0.8 - 0.9 Positive: > 0.9 The CDC recommends that a positive HCV antibody result be followed up with a HCV Nucleic Acid Amplification test (715792).Performed At: [facility] [address] [place], [place] [id number] Mancilla MD Ph:[phone] AB HIV 1 07:27:00* Test Item Value Reference Range Interpretation Comments AB HIV 1 2 (test code = DSA80IV) Nonreactive NonReactive It is recognized that currently available assays for thedetection of antibodies to HIV-1 and/or HIV-2 may notdetect all infected individuals. A negative test result doesnot exclude the possibility of exposure to or infection withHIV. HIV antibodies may be undetectable in some stages ofthe infection and in some clinical conditions. ANTINUCLEAR ANTIBODIES [id number] 07:27:00* Test Item Value Reference Range Interpretation Comments XANDER SCREEN (test code = ANASCR) HEPATITIS B [id number] 07:27:00* Test Item Value Reference Range Interpretation Comments AB HEPATITIS B SURFACE (test code = HBSAB) NEGATIVE AG HEPAT B SURF (test code = HBSAG) Index Nonreactive HEPATITIS B CORE ANTIBODY,TOT (test code = HBCAB) NEGA TIVE HEPATITIS B CORE ANTIBODY,IGM (test code = HBCMAB) NEG ATIVE AG HEPATITIS BE (test code = HBEAG) NEGATIVE AB HEPATITIS BE (test code = HBEAB) NEG ACUTE HEPATITIS [id number] 07:27:00* Test Item Value Reference Range Interpretation Comments AB HEPATITIS A IGM (test code = HAVMAB) Negative Negative AB HEPATITIS C (test code = HCVAB) <0.1 0.0-0.9 INFCE Result Units: s/co ratio Negative: < 0.8 Indeterminate: 0.8 - 0.9 Positive: > 0.9 The CDC recommends that a positive HCV antibody result be followed up with a HCV Nucleic Acid Amplification test ([id number]).Performed At: [facility] [id number] Jose Alejandro Mancilla MD Ph:[phone] NEUTROPHIL CYTOPLASMIC [id number] 07:27:00* Test Item Value Reference Range Interpretation Comments AB ANTI-NEUTROPHIL CYTOPLASMIC (test code = NEUTCAB) < 1:20 AB ANTI-NEUTROPHIL CYTO. P (test code = NEUTCAB-P) <1: 20 ATYPICAL ANCA (test code = ANCACOM) <1:20 AB DNA DOUBLE [id number] 07:27:00* Test Item Value Reference Range Interpretation Comments AB DNA DOUBLE STRAND (test code = DNADSAB) IUnit/mL 0-9 CBC W/AUTO [id number] 06:18:00* Test Item Value Reference Range Interpretation Comments WHITE BLOOD CELL (test code = WBC) 7.4 K/mm3 4.5-12.5 N RED BLOOD CELL (test code = RBC) 2.77 mill/mm3 3.7-5.2 L HEMOGLOBIN (test code = HGB) 8.1 gram/dL 11.5-15.5 L HEMATOCRIT (test code = HCT) 26.1 % 36.0-46.0 L MEAN CELL VOLUME (test code = MCV) 94.2 fL 80-98 N MEAN CELL HGB (test code = MCH) 29.2 picogram 27.0-33.0 N MEAN CELL HGB CONCETRATION (test code = MCHC) 31.0 gram/dL 33.0-36. 0 L RED CELL DISTRIBUTION WIDTH (test code = RDW) 14.0 % 11.6-16. 2 N RED CELL DISTRIBUTION WIDTH SD (test code = RDW-SD) 48.0 fL 37 .0-51.0 N PLATELET COUNT (test code = PLT) 222 K/mm3 150-450 N MEAN PLATELET VOLUME (test code = MPV) 10.1 fL 6.7-11.0 N NEUTROPHIL % (test code = NT%) 59.1 % 39.0-69.0 N IMMATURE GRANULOCYTE % (test code = IG%) 0.4 % 0.0-5.0 N LYMPHOCYTE % (test code = LY%) 25.6 % 25.0-55.0 N MONOCYTE % (test code = MO%) 7.3 % 0.0-10.0 N EOSINOPHIL % (test code = EO%) 7.3 % 0.0-5.0 H BASOPHIL % (test code = BA%) 0.3 % 0.0-1.0 N NUCLEATED RBC % (test code = NRBC%) 0.0 % 0-0 N NEUTROPHIL # (test code = NT#) 4.34 K/mm3 1.8-7.7 N IMMATURE GRANULOCYTE # (test code = IG#) 0.03 x10 3/uL 0-0.03 N LYMPHOCYTE # (test code = LY#) 1.88 K/mm3 1.0-5.0 N MONOCYTE # (test code = MO#) 0.54 K/mm3 0-0.8 N EOSINOPHIL # (test code = EO#) 0.54 K/mm3 0.0-0.5 H BASOPHIL # (test code = BA#) 0.02 K/mm3 0.0-0.2 N NUCLEATED RBC # (test code = NRBC#) 0.00 K/mm3 0.0-0.1 N BASIC METABOLIC [id number] 06:18:00* Test Item Value Reference Range Interpretation Comments SODIUM (test code = NA) 145 mmol/L 136-145 N POTASSIUM (test code = K) 4.6 mmol/L 3.5-5.1 N CHLORIDE (test code = CL) 116.0 mmol/L 98-107 H CARBON DIOXIDE (test code = CO2) 19.0 mmol/L 21-32 L ANION GAP (test code = GAP) 14.6 10-20 N GLUCOSE (test code = GLU) 154 mg/dL 74-106 H BLOOD UREA NITROGEN (test code = BUN) 62 mg/dL 7-18 H GLOMERULAR FILTRATION RATE (test code = GFR) 12 mL/min >=60 Estimated GFR by using Modified MDRD formula.Chronic kidney disease is defined as either kidney damageor GFR <60 mL/min/1.73 m2 for >3 months. CREATININE (test code = CREAT) 4.20 mg/dL 0.55-1.02 H Note change in reference range due to change in reagent. BUN/CREATININE RATIO (test code = BUN/CREA) 14.7 10-20 N CALCIUM (test code = CA) 6.8 mg/dL 8.5-10.1 L BASIC METABOLIC [id number] 06:12:00* Test Item Value Reference Range Interpretation Comments SODIUM (test code = NA) 145 mmol/L 136-145 N POTASSIUM (test code = K) 4.6 mmol/L 3.5-5.1 N CHLORIDE (test code = CL) 116.0 mmol/L 98-107 H CARBON DIOXIDE (test code = CO2) mmol/L 21-32 ANION GAP (test code = GAP) 10-20 GLUCOSE (test code = GLU) mg/dL 74-106 BLOOD UREA NITROGEN (test code = BUN) mg/dL 7-18 GLOMERULAR FILTRATION RATE (test code = GFR) mL/min >=60 CREATININE (test code = CREAT) mg/dL 0.55-1.02 BUN/CREATININE RATIO (test code = BUN/CREA) 10-20 CALCIUM (test code = CA) mg/dL 8.5-10.1 FE W/TOTAL IRON BINDING CAP.[id number] 11:49:00* Test Item Value Reference Range Interpretation Comments SERUM IRON (test code = IRON) 56 ug/dL 50-175 N TOTAL IRON BINDING CAPACITY (test code = TIBC) 192 mcg/dL 250-450 L IRON SATURATION (test code = FESAT) 29.17 % 13-45 N [id number] 11:49:00* Test Item Value Reference Range Interpretation Comments FERRITIN (test code = INOCENTE) 65 ng/mL 8-388 N CBC W/AUTO [id number] 09:57:00* Test Item Value Reference Range Interpretation Comments WHITE BLOOD CELL (test code = WBC) 7.4 K/mm3 4.5-12.5 N RED BLOOD CELL (test code = RBC) 2.89 mill/mm3 3.7-5.2 L HEMOGLOBIN (test code = HGB) 8.4 gram/dL 11.5-15.5 L HEMATOCRIT (test code = HCT) 26.9 % 36.0-46.0 L MEAN CELL VOLUME (test code = MCV) 93.1 fL 80-98 N MEAN CELL HGB (test code = MCH) 29.1 picogram 27.0-33.0 N MEAN CELL HGB CONCETRATION (test code = MCHC) 31.2 gram/dL 33.0-36. 0 L RED CELL DISTRIBUTION WIDTH (test code = RDW) 14.2 % 11.6-16. 2 N RED CELL DISTRIBUTION WIDTH SD (test code = RDW-SD) 47.8 fL 37 .0-51.0 N PLATELET COUNT (test code = PLT) 242 K/mm3 150-450 N MEAN PLATELET VOLUME (test code = MPV) 10.4 fL 6.7-11.0 N NEUTROPHIL % (test code = NT%) 61.2 % 39.0-69.0 N IMMATURE GRANULOCYTE % (test code = IG%) 0.4 % 0.0-5.0 N LYMPHOCYTE % (test code = LY%) 25.1 % 25.0-55.0 N MONOCYTE % (test code = MO%) 6.5 % 0.0-10.0 N EOSINOPHIL % (test code = EO%) 6.5 % 0.0-5.0 H BASOPHIL % (test code = BA%) 0.3 % 0.0-1.0 N NUCLEATED RBC % (test code = NRBC%) 0.0 % 0-0 N NEUTROPHIL # (test code = NT#) 4.52 K/mm3 1.8-7.7 N IMMATURE GRANULOCYTE # (test code = IG#) 0.03 x10 3/uL 0-0.03 N LYMPHOCYTE # (test code = LY#) 1.85 K/mm3 1.0-5.0 N MONOCYTE # (test code = MO#) 0.48 K/mm3 0-0.8 N EOSINOPHIL # (test code = EO#) 0.48 K/mm3 0.0-0.5 N BASOPHIL # (test code = BA#) 0.02 K/mm3 0.0-0.2 N NUCLEATED RBC # (test code = NRBC#) 0.00 K/mm3 0.0-0.1 N MANUAL DIFF REQUIRED (test code = MDIFF) NO BASIC METABOLIC [id number] 08:32:00* Test Item Value Reference Range Interpretation Comments SODIUM (test code = NA) 143 mmol/L 136-145 N POTASSIUM (test code = K) 4.6 mmol/L 3.5-5.1 N CHLORIDE (test code = CL) 115.0 mmol/L 98-107 H CARBON DIOXIDE (test code = CO2) 19.0 mmol/L 21-32 L ANION GAP (test code = GAP) 13.6 10-20 N GLUCOSE (test code = GLU) 163 mg/dL 74-106 H BLOOD UREA NITROGEN (test code = BUN) 58 mg/dL 7-18 H GLOMERULAR FILTRATION RATE (test code = GFR) 11 mL/min >=60 Estimated GFR by using Modified MDRD formula.Chronic kidney disease is defined as either kidney damageor GFR <60 mL/min/1.73 m2 for >3 months. CREATININE (test code = CREAT) 4.30 mg/dL 0.55-1.02 H Note change in reference range due to change in reagent. BUN/CREATININE RATIO (test code = BUN/CREA) 13.6 10-20 N CALCIUM (test code = CA) 6.4 mg/dL 8.5-10.1 L Res ults called to [id number] by NEERAJ 10/30/18 0829Critical results verified and read back by Nurse? Y [id number] 08:32:00* Test Item Value Reference Range Interpretation Comments PHOSPHORUS (test code = PHOS) 5.8 mg/dL 2.5-4.9 H CALCIUM [id number] 08:32:00* Test Item Value Reference Range Interpretation Comments CALCIUM IONIZED (test code = BRIONNA) 0.99 mmol/L 1.12-1.32 L BASIC METABOLIC [id number] 08:26:00* Test Item Value Reference Range Interpretation Comments SODIUM (test code = NA) 143 mmol/L 136-145 N POTASSIUM (test code = K) 4.6 mmol/L 3.5-5.1 N CHLORIDE (test code = CL) 115.0 mmol/L 98-107 H CARBON DIOXIDE (test code = CO2) mmol/L 21-32 ANION GAP (test code = GAP) 10-20 GLUCOSE (test code = GLU) mg/dL 74-106 BLOOD UREA NITROGEN (test code = BUN) mg/dL 7-18 GLOMERULAR FILTRATION RATE (test code = GFR) mL/min >=60 CREATININE (test code = CREAT) mg/dL 0.55-1.02 BUN/CREATININE RATIO (test code = BUN/CREA) 10-20 CALCIUM (test code = CA) mg/dL 8.5-10.1 [id number] 08:26:00* Test Item Value Reference Range Interpretation Comments PHOSPHORUS (test code = PHOS) mg/dL 2.5-4.9 CALCIUM [id number] 08:26:00* Test Item Value Reference Range Interpretation Comments CALCIUM IONIZED (test code = BRIONNA) 0.99 mmol/L 1.12-1.32 L BASIC METABOLIC [id number] 08:14:00* Test Item Value Reference Range Interpretation Comments SODIUM (test code = NA) 143 mmol/L 136-145 N POTASSIUM (test code = K) 4.6 mmol/L 3.5-5.1 N CHLORIDE (test code = CL) 115.0 mmol/L 98-107 H CARBON DIOXIDE (test code = CO2) mmol/L 21-32 ANION GAP (test code = GAP) 10-20 GLUCOSE (test code = GLU) mg/dL 74-106 BLOOD UREA NITROGEN (test code = BUN) mg/dL 7-18 GLOMERULAR FILTRATION RATE (test code = GFR) mL/min >=60 CREATININE (test code = CREAT) mg/dL 0.55-1.02 BUN/CREATININE RATIO (test code = BUN/CREA) 10-20 CALCIUM (test code = CA) mg/dL 8.5-10.1 [id number] 08:14:00* Test Item Value Reference Range Interpretation Comments PHOSPHORUS (test code = PHOS) mg/dL 2.5-4.9 CALCIUM [id number] 08:14:00* Test Item Value Reference Range Interpretation Comments CALCIUM IONIZED (test code = BRIONNA) mmol/L 1.12-1.32 CBC W/AUTO [id number] 13:29:00* Test Item Value Reference Range Interpretation Comments WHITE BLOOD CELL (test code = WBC) 7.4 K/mm3 4.5-12.5 N RED BLOOD CELL (test code = RBC) 2.96 mill/mm3 3.7-5.2 L HEMOGLOBIN (test code = HGB) 8.5 gram/dL 11.5-15.5 L HEMATOCRIT (test code = HCT) 28.4 % 36.0-46.0 L MEAN CELL VOLUME (test code = MCV) 95.9 fL 80-98 N MEAN CELL HGB (test code = MCH) 28.7 picogram 27.0-33.0 N MEAN CELL HGB CONCETRATION (test code = MCHC) 29.9 gram/dL 33.0-36. 0 L RED CELL DISTRIBUTION WIDTH (test code = RDW) 14.5 % 11.6-16. 2 N RED CELL DISTRIBUTION WIDTH SD (test code = RDW-SD) 50.6 fL 37 .0-51.0 N PLATELET COUNT (test code = PLT) 242 K/mm3 150-450 N MEAN PLATELET VOLUME (test code = MPV) 10.3 fL 6.7-11.0 N NEUTROPHIL % (test code = NT%) 61.6 % 39.0-69.0 N IMMATURE GRANULOCYTE % (test code = IG%) 0.3 % 0.0-5.0 N LYMPHOCYTE % (test code = LY%) 24.2 % 25.0-55.0 L MONOCYTE % (test code = MO%) 6.6 % 0.0-10.0 N EOSINOPHIL % (test code = EO%) 6.9 % 0.0-5.0 H BASOPHIL % (test code = BA%) 0.4 % 0.0-1.0 N NUCLEATED RBC % (test code = NRBC%) 0.0 % 0-0 N NEUTROPHIL # (test code = NT#) 4.59 K/mm3 1.8-7.7 N IMMATURE GRANULOCYTE # (test code = IG#) 0.02 x10 3/uL 0-0.03 N LYMPHOCYTE # (test code = LY#) 1.80 K/mm3 1.0-5.0 N MONOCYTE # (test code = MO#) 0.49 K/mm3 0-0.8 N EOSINOPHIL # (test code = EO#) 0.51 K/mm3 0.0-0.5 H BASOPHIL # (test code = BA#) 0.03 K/mm3 0.0-0.2 N NUCLEATED RBC # (test code = NRBC#) 0.00 K/mm3 0.0-0.1 N MANUAL DIFF REQUIRED (test code = MDIFF) NO, ONLY SCAN NEEDED DIFFERENTIAL [id number] 13:29:00* Test Item Value Reference Range Interpretation Comments STAIN ACCEPTABILITY (test code = STN ACCEPTABLE) STAIN ACCEPTABLE HYPOCHROMIA (test code = HYPO) 1+ POIKILOCYTOSIS (test code = POIK) 1+ ANISOCYTOSIS (test code = ANISO) 1+ PLATELET ESTIMATE (test code = PLTEST) ADEQUATE PLATELET MORPHOLOGY (test code = PLTMORPH) NORMAL CALCIUM [id number] 08:44:00* Test Item Value Reference Range Interpretation Comments CALCIUM IONIZED (test code = BRIONNA) 1.00 mmol/L 1.12-1.32 L COMMENTS TO REGISTRATION OFFICER: DO ON BLOOD IN LAB FROM THIS MORNINGSPECIMEN COMMENTS: DO ON BLOOD IN LAB FROM THIS MORNINGPROTHROMBIN TIME 2018-10-29 07:57:00* Test Item Value Reference Range Interpretation Comments PROTHROMBIN TIME PATIENT (test code = PTP) 12.6 seconds 9.0-14.0 N INTERNATIONAL NORMAL RATIO (test code = INR) 1.0 0.8-1.2 N The therapeutic range for oral anticoagulant therapy [...] (2.5-3.5) IS PATIENT ON ANTICOAGULANTS? NTHROMBOPLASTIN TIME [id number] 07:57:00* Test Item Value Reference Range Interpretation Comments THROMBOPLASTIN TIME PARTIAL (test code = PTT) 32.3 seconds 25.0-36. 5 N IS PATIENT ON ANTICOAGULANTS? NBASIC METABOLIC [id number] 07:34:00* Test Item Value Reference Range Interpretation Comments SODIUM (test code = NA) 145 mmol/L 136-145 N POTASSIUM (test code = K) 4.3 mmol/L 3.5-5.1 N CHLORIDE (test code = CL) 116.0 mmol/L 98-107 H CARBON DIOXIDE (test code = CO2) 19.0 mmol/L 21-32 L ANION GAP (test code = GAP) 14.3 10-20 N GLUCOSE (test code = GLU) 179 mg/dL 74-106 H BLOOD UREA NITROGEN (test code = BUN) 55 mg/dL 7-18 H GLOMERULAR FILTRATION RATE (test code = GFR) 12 mL/min >=60 Estimated GFR by using Modified MDRD formula.Chronic kidney disease is defined as either kidney damageor GFR <60 mL/min/1.73 m2 for >3 months. CREATININE (test code = CREAT) 4.20 mg/dL 0.55-1.02 H Note change in reference range due to change in reagent. BUN/CREATININE RATIO (test code = BUN/CREA) 13.0 10-20 N CALCIUM (test code = CA) 6.3 mg/dL 8.5-10.1 LL Res ults called to [id number] by JENNIFER 10/29/18 0733Critical results verified and read back by Nurse? Y HEPATIC FUNCTION [id number] 07:34:00* Test Item Value Reference Range Interpretation Comments TOTAL PROTEIN (test code = PROT) 5.4 gram/dL 6.4-8.2 L ALBUMIN (test code = ALB) 1.7 g/dL 3.4-5.0 L GLOBULIN (test code = GLOB) 3.7 gram/dL 2.7-4.2 N ALBUMIN/GLOBULIN RATIO (test code = A/G) 0.5 0.75-1.50 L BILIRUBIN TOTAL (test code = BILT) 0.20 mg/dL 0.0-1.0 N BILIRUBIN DIRECT (test code = BILD) 0.06 mg/dL 0.0-0.20 N SGOT/AST (test code = AST) 11 IUnit/L 15-37 L SGPT/ALT (test code = ALT) 12 IUnit/L 12-78 N ALKALINE PHOSPHATASE TOTAL (test code = ALKP) 68 IUnit/L 45-117 N Note change in reference range due to change in reagent. [id number] 07:34:00* Test Item Value Reference Range Interpretation Comments PHOSPHORUS (test code = PHOS) 5.7 mg/dL 2.5-4.9 H [id number] 07:34:00* Test Item Value Reference Range Interpretation Comments MAGNESIUM (test code = MAG) 2.1 mg/dL 1.8-2.4 N CBC W/AUTO [id number] 07:21:00* Test Item Value Reference Range Interpretation Comments WHITE BLOOD CELL (test code = WBC) 7.4 K/mm3 4.5-12.5 N RED BLOOD CELL (test code = RBC) 2.96 mill/mm3 3.7-5.2 L HEMOGLOBIN (test code = HGB) 8.5 gram/dL 11.5-15.5 L HEMATOCRIT (test code = HCT) 28.4 % 36.0-46.0 L MEAN CELL VOLUME (test code = MCV) 95.9 fL 80-98 N MEAN CELL HGB (test code = MCH) 28.7 picogram 27.0-33.0 N MEAN CELL HGB CONCETRATION (test code = MCHC) 29.9 gram/dL 33.0-36. 0 L RED CELL DISTRIBUTION WIDTH (test code = RDW) 14.5 % 11.6-16. 2 N RED CELL DISTRIBUTION WIDTH SD (test code = RDW-SD) 50.6 fL 37 .0-51.0 N PLATELET COUNT (test code = PLT) 242 K/mm3 150-450 N MEAN PLATELET VOLUME (test code = MPV) 10.3 fL 6.7-11.0 N NEUTROPHIL % (test code = NT%) 61.6 % 39.0-69.0 N IMMATURE GRANULOCYTE % (test code = IG%) 0.3 % 0.0-5.0 N LYMPHOCYTE % (test code = LY%) 24.2 % 25.0-55.0 L MONOCYTE % (test code = MO%) 6.6 % 0.0-10.0 N EOSINOPHIL % (test code = EO%) 6.9 % 0.0-5.0 H BASOPHIL % (test code = BA%) 0.4 % 0.0-1.0 N NUCLEATED RBC % (test code = NRBC%) 0.0 % 0-0 N NEUTROPHIL # (test code = NT#) 4.59 K/mm3 1.8-7.7 N IMMATURE GRANULOCYTE # (test code = IG#) 0.02 x10 3/uL 0-0.03 N LYMPHOCYTE # (test code = LY#) 1.80 K/mm3 1.0-5.0 N MONOCYTE # (test code = MO#) 0.49 K/mm3 0-0.8 N EOSINOPHIL # (test code = EO#) 0.51 K/mm3 0.0-0.5 H BASOPHIL # (test code = BA#) 0.03 K/mm3 0.0-0.2 N NUCLEATED RBC # (test code = NRBC#) 0.00 K/mm3 0.0-0.1 N MANUAL DIFF REQUIRED (test code = MDIFF) NO, ONLY SCAN NEEDED DIFFERENTIAL [id number] 07:21:00* Test Item Value Reference Range Interpretation Comments STAIN ACCEPTABILITY (test code = STN ACCEPTABLE) CABOT RINGS (test code = CAB) MORPHOLOGY COMMENT (test code = MOC) PLATELET ESTIMATE (test code = PLTEST) PLATELET MORPHOLOGY (test code = PLTMORPH) CBC W/AUTO [id number] 07:21:00* Test Item Value Reference Range Interpretation Comments WHITE BLOOD CELL (test code = WBC) 7.4 K/mm3 4.5-12.5 N RED BLOOD CELL (test code = RBC) 2.96 mill/mm3 3.7-5.2 L HEMOGLOBIN (test code = HGB) 8.5 gram/dL 11.5-15.5 L HEMATOCRIT (test code = HCT) 28.4 % 36.0-46.0 L MEAN CELL VOLUME (test code = MCV) 95.9 fL 80-98 N MEAN CELL HGB (test code = MCH) 28.7 picogram 27.0-33.0 N MEAN CELL HGB CONCETRATION (test code = MCHC) 29.9 gram/dL 33.0-36. 0 L RED CELL DISTRIBUTION WIDTH (test code = RDW) 14.5 % 11.6-16. 2 N RED CELL DISTRIBUTION WIDTH SD (test code = RDW-SD) 50.6 fL 37 .0-51.0 N PLATELET COUNT (test code = PLT) 242 K/mm3 150-450 N MEAN PLATELET VOLUME (test code = MPV) 10.3 fL 6.7-11.0 N NEUTROPHIL % (test code = NT%) 61.6 % 39.0-69.0 N IMMATURE GRANULOCYTE % (test code = IG%) 0.3 % 0.0-5.0 N LYMPHOCYTE % (test code = LY%) 24.2 % 25.0-55.0 L MONOCYTE % (test code = MO%) 6.6 % 0.0-10.0 N EOSINOPHIL % (test code = EO%) 6.9 % 0.0-5.0 H BASOPHIL % (test code = BA%) 0.4 % 0.0-1.0 N NUCLEATED RBC % (test code = NRBC%) 0.0 % 0-0 N NEUTROPHIL # (test code = NT#) 4.59 K/mm3 1.8-7.7 N IMMATURE GRANULOCYTE # (test code = IG#) 0.02 x10 3/uL 0-0.03 N LYMPHOCYTE # (test code = LY#) 1.80 K/mm3 1.0-5.0 N MONOCYTE # (test code = MO#) 0.49 K/mm3 0-0.8 N EOSINOPHIL # (test code = EO#) 0.51 K/mm3 0.0-0.5 H BASOPHIL # (test code = BA#) 0.03 K/mm3 0.0-0.2 N NUCLEATED RBC # (test code = NRBC#) 0.00 K/mm3 0.0-0.1 N MANUAL DIFF REQUIRED (test code = MDIFF) NO, ONLY SCAN NEEDED DIFFERENTIAL [id number] 07:21:00* Test Item Value Reference Range Interpretation Comments STAIN ACCEPTABILITY (test code = STN ACCEPTABLE) CABOT RINGS (test code = CAB) MORPHOLOGY COMMENT (test code = MOC) PLATELET ESTIMATE (test code = PLTEST) PLATELET MORPHOLOGY (test code = PLTMORPH) CBC W/AUTO [id number] 07:21:00* Test Item Value Reference Range Interpretation Comments WHITE BLOOD CELL (test code = WBC) 7.4 K/mm3 4.5-12.5 N RED BLOOD CELL (test code = RBC) 2.96 mill/mm3 3.7-5.2 L HEMOGLOBIN (test code = HGB) 8.5 gram/dL 11.5-15.5 L HEMATOCRIT (test code = HCT) 28.4 % 36.0-46.0 L MEAN CELL VOLUME (test code = MCV) 95.9 fL 80-98 N MEAN CELL HGB (test code = MCH) 28.7 picogram 27.0-33.0 N MEAN CELL HGB CONCETRATION (test code = MCHC) 29.9 gram/dL 33.0-36. 0 L RED CELL DISTRIBUTION WIDTH (test code = RDW) 14.5 % 11.6-16. 2 N RED CELL DISTRIBUTION WIDTH SD (test code = RDW-SD) 50.6 fL 37 .0-51.0 N PLATELET COUNT (test code = PLT) 242 K/mm3 150-450 N MEAN PLATELET VOLUME (test code = MPV) 10.3 fL 6.7-11.0 N NEUTROPHIL % (test code = NT%) 61.6 % 39.0-69.0 N IMMATURE GRANULOCYTE % (test code = IG%) 0.3 % 0.0-5.0 N LYMPHOCYTE % (test code = LY%) 24.2 % 25.0-55.0 L MONOCYTE % (test code = MO%) 6.6 % 0.0-10.0 N EOSINOPHIL % (test code = EO%) 6.9 % 0.0-5.0 H BASOPHIL % (test code = BA%) 0.4 % 0.0-1.0 N NUCLEATED RBC % (test code = NRBC%) 0.0 % 0-0 N NEUTROPHIL # (test code = NT#) 4.59 K/mm3 1.8-7.7 N IMMATURE GRANULOCYTE # (test code = IG#) 0.02 x10 3/uL 0-0.03 N LYMPHOCYTE # (test code = LY#) 1.80 K/mm3 1.0-5.0 N MONOCYTE # (test code = MO#) 0.49 K/mm3 0-0.8 N EOSINOPHIL # (test code = EO#) 0.51 K/mm3 0.0-0.5 H BASOPHIL # (test code = BA#) 0.03 K/mm3 0.0-0.2 N NUCLEATED RBC # (test code = NRBC#) 0.00 K/mm3 0.0-0.1 N MANUAL DIFF REQUIRED (test code = MDIFF) NO, ONLY SCAN NEEDED DIFFERENTIAL [id number] 07:21:00* Test Item Value Reference Range Interpretation Comments STAIN ACCEPTABILITY (test code = STN ACCEPTABLE) MORPHOLOGY COMMENT (test code = MOC) PLATELET ESTIMATE (test code = PLTEST) PLATELET MORPHOLOGY (test code = PLTMORPH) CBC W/AUTO [id number] 07:21:00* Test Item Value Reference Range Interpretation Comments WHITE BLOOD CELL (test code = WBC) 7.4 K/mm3 4.5-12.5 N RED BLOOD CELL (test code = RBC) 2.96 mill/mm3 3.7-5.2 L HEMOGLOBIN (test code = HGB) 8.5 gram/dL 11.5-15.5 L HEMATOCRIT (test code = HCT) 28.4 % 36.0-46.0 L MEAN CELL VOLUME (test code = MCV) 95.9 fL 80-98 N MEAN CELL HGB (test code = MCH) 28.7 picogram 27.0-33.0 N MEAN CELL HGB CONCETRATION (test code = MCHC) 29.9 gram/dL 33.0-36. 0 L RED CELL DISTRIBUTION WIDTH (test code = RDW) 14.5 % 11.6-16. 2 N RED CELL DISTRIBUTION WIDTH SD (test code = RDW-SD) 50.6 fL 37 .0-51.0 N PLATELET COUNT (test code = PLT) 242 K/mm3 150-450 N MEAN PLATELET VOLUME (test code = MPV) 10.3 fL 6.7-11.0 N NEUTROPHIL % (test code = NT%) 61.6 % 39.0-69.0 N IMMATURE GRANULOCYTE % (test code = IG%) 0.3 % 0.0-5.0 N LYMPHOCYTE % (test code = LY%) 24.2 % 25.0-55.0 L MONOCYTE % (test code = MO%) 6.6 % 0.0-10.0 N EOSINOPHIL % (test code = EO%) 6.9 % 0.0-5.0 H BASOPHIL % (test code = BA%) 0.4 % 0.0-1.0 N NUCLEATED RBC % (test code = NRBC%) 0.0 % 0-0 N NEUTROPHIL # (test code = NT#) 4.59 K/mm3 1.8-7.7 N IMMATURE GRANULOCYTE # (test code = IG#) 0.02 x10 3/uL 0-0.03 N LYMPHOCYTE # (test code = LY#) 1.80 K/mm3 1.0-5.0 N MONOCYTE # (test code = MO#) 0.49 K/mm3 0-0.8 N EOSINOPHIL # (test code = EO#) 0.51 K/mm3 0.0-0.5 H BASOPHIL # (test code = BA#) 0.03 K/mm3 0.0-0.2 N NUCLEATED RBC # (test code = NRBC#) 0.00 K/mm3 0.0-0.1 N MANUAL DIFF REQUIRED (test code = MDIFF) NO, ONLY SCAN NEEDED DIFFERENTIAL [id number] 07:21:00* Test Item Value Reference Range Interpretation Comments STAIN ACCEPTABILITY (test code = STN ACCEPTABLE) CABOT RINGS (test code = CAB) MORPHOLOGY COMMENT (test code = MOC) PLATELET ESTIMATE (test code = PLTEST) PLATELET MORPHOLOGY (test code = PLTMORPH) AB HEPATITIS [id number] 21:11:00* Test Item Value Reference Range Interpretation Comments AB HEPATITIS C (test code = HCVAB) NEGATIVE AB HIV 1 21:11:00* Test Item Value Reference Range Interpretation Comments AB HIV 1 2 (test code = [id number]) Nonreactive NonReactive It is recognized that currently available assays for thedetection of antibodies to HIV-1 and/or HIV-2 may notdetect all infected individuals. A negative test result doesnot exclude the possibility of exposure to or infection withHIV. HIV antibodies may be undetectable in some stages ofthe infection and in some clinical conditions. - US RETRO [id number] 16:56:00 Name: HEMANTH ARGUELLO [facility] : 1975 Age/S: 43 / F [address] [facility] Unit #: [id number] Loc: [place] [address] Phys: Raymundo Angel MD Acct: [id number] Dis Date: Status: ADM IN PHONE #: [phone] Exam Date: 10/28/2018 1607 FAX #: [phone] Reason: renal failure EXAMS: CPT CODE: [id number] US RETRO LTD [id number] REASON FOR EXAM: renal failure EXAM ORDER [...] CC: Raymundo Angel MD; Ariane Priest MD; Reji Pinedo MD Technologist: SATHYA GOTTI Trnscb Date/Time: 10/28/2018 (1655) [id number] Orig Print D/T: S: 10/28/2018 (2033) Probe: PAGE 1 Signed Report RHEUMATOID FACTOR [id number] 16:39:00* Test Item Value Reference Range Interpretation Comments RHEUMATOID FACTOR SCREEN (test code = RA) NEGATIVE NEGATIVE UR SMEAR EOSINOPHIL [id number] 16:32:00* Test Item Value Reference Range Interpretation Comments UR SMEAR EOSINOPHIL COUNT (test code = EOSCTU) NONE SEEN per HPF NO NE SEEN UR ELECTROPHORESIS VAIBHAV [id number] 16:32:00* Test Item Value Reference Range Interpretation Comments IMMUNOFIXATION URINE (test code = IMMFIXU) SCREEN NEGATIVE UR TOTAL PROTEIN (test code = PROTEU) mg/dL 0.0-15.0 UR [id number]-[id number]-SRFTEFDE (test code = A1GU) % UR [id number] (test code = A2GU) % UR BETA GLOBULIN (test code = BGU) % UR GAMMA GLOBULIN (test code = GGU) % MONOCLONAL SPIKE (test code = MONOSPIKE) % Not Observe UR ALBUMIN QUANT (test code = ALBU) % NOT ESTABL. PARATHYROID HORMONE [id number] 16:32:00* Test Item Value Reference Range Interpretation Comments PARATHYROID HORMONE INTACT (test code = PARAI) 306.10 pgram/mL 8.4- 88 H B-TYPE NATRIURETIC [id number] 15:36:00* Test Item Value Reference Range Interpretation Comments B-TYPE NATRIURETIC PEPTIDE (test code = BNP) 1620.38 pgram/mL 0-100 H - XR CHEST 1 [id number] 10:44:00 FAX: Atiya Kapoor [phone] Clear: B St: [facility] FAX: Ariane Priest MD FAX: Reji Hendrix MD [phone] Name: HEMANTH ARGUELLO [facility] : 1975 Age/S: 43/F [address] Unit #: [id number] Loc: [address] [address] Phys: Atiya Yeager MD Acct: [id number] Dis Date: Status: ADM IN ONE #: [phone] Exam Date: 10/28/2018 0850 FAX #: [phone] Reason: PNEUMONIA CHF EXAMS: CPT CODE: [id number] XR CHEST 1 V [id number] REASON FOR EXAM: PNEUMONIA CHF Exam Order Date: 10/28/2018 6:00 AM Ordering M.DDamián: Atiya Yeager MD PROCEDURE: - XR CHEST [...] CC: Atiya Yeager MD; Ariane Alva MD; Reji Pinedo MD Technologist: DG CHAN RT (R) Trnscrd Date/Time/By: 10/28/2018 (1043) : By: [email or web address] Orig Print D/T: S: 10/28/2018 (0313) PAGE 1 Signed Report PROCALCITONIN (PCT) 2018-10-28 07:50:00* Test Item Value Reference Range Interpretation Comments PROCALCITONIN (PCT) (test code = PROCAL) 0.09 ng/ml Concentration Interpretation (ng/mL) <0.51 Sepsis [...] into account the patients history. BASIC METABOLIC [id number] 07:37:00* Test Item Value Reference Range Interpretation Comments SODIUM (test code = NA) 146 mmol/L 136-145 H POTASSIUM (test code = K) 4.7 mmol/L 3.5-5.1 N CHLORIDE (test code = CL) 118.0 mmol/L 98-107 H CARBON DIOXIDE (test code = CO2) 18.0 mmol/L 21-32 L ANION GAP (test code = GAP) 14.7 10-20 N GLUCOSE (test code = GLU) 135 mg/dL 74-106 H BLOOD UREA NITROGEN (test code = BUN) 51 mg/dL 7-18 H GLOMERULAR FILTRATION RATE (test code = GFR) 13 mL/min >=60 Estimated GFR by using Modified MDRD formula.Chronic kidney disease is defined as either kidney damageor GFR <60 mL/min/1.73 m2 for >3 months. CREATININE (test code = CREAT) 3.90 mg/dL 0.55-1.02 H Note change in reference range due to change in reagent. BUN/CREATININE RATIO (test code = BUN/CREA) 13.0 10-20 N CALCIUM (test code = CA) 6.4 mg/dL 8.5-10.1 L Res ults called to [id number] by OSKAR 10/28/18 0737Critical results verified and read back by Nurse? Y HEPATIC FUNCTION [id number] 07:10:00* Test Item Value Reference Range Interpretation Comments TOTAL PROTEIN (test code = PROT) 5.7 gram/dL 6.4-8.2 L ALBUMIN (test code = ALB) 1.7 g/dL 3.4-5.0 L GLOBULIN (test code = GLOB) 4.0 gram/dL 2.7-4.2 N ALBUMIN/GLOBULIN RATIO (test code = A/G) 0.4 0.75-1.50 L BILIRUBIN TOTAL (test code = BILT) 0.20 mg/dL 0.0-1.0 N BILIRUBIN DIRECT (test code = BILD) < 0.05 mg/dL 0.0-0.20 N SGOT/AST (test code = AST) 13 IUnit/L 15-37 L SGPT/ALT (test code = ALT) 17 IUnit/L 12-78 N ALKALINE PHOSPHATASE TOTAL (test code = ALKP) 76 IUnit/L 45-117 N Note change in reference range due to change in reagent. THYROID STIMULATING [id number] 07:10:00* Test Item Value Reference Range Interpretation Comments THYROID STIMULATING HORMONE (test code = TSH) 3.930 uIU/mL 0.36-3.7 4 H TSH REFERENCE RANGES: EUTHYROID: 0.35 - 4.3 mIU/mL HYPO : > 5.5 mIU/mL HYPER : < 0.35 mIU/mL LIPID PROFILE (CORONARY RISK)2018-10-28 07:09:00* Test Item Value Reference Range Interpretation Comments TRIGLYCERIDES (test code = TRIG) 165 mg/dL 20-150 H CHOLESTEROL (test code = CHOL) 195 mg/dL 0-200 N CHOLESTEROL/HDL RATIO (test code = CHOLHDL) 4.0 RATIO 0-4.9 N RISK ASSOCIATED WITH CHOL/HDL RATIOS: Risk Male Female1/2 AVERAGE 3.43 3.27AVERAGE 4.97 4.442X AVERAGE 9.55 7.053X AVERAGE 23.39 11.04 REFERENCE VALUE IS RELATED TO RISK LEVELS ASRECOMMENDED BY THE MARK. HEART, LUNG, AND BLOOD INST. HDL CHOLESTEROL (test code = HDL) 46 mg/dL 40-60 N LIPOPROTEIN LDL (test code = LDL) 129 mg/dL 100-129 N RN PERSONNEL, CONTACT PHYSICIAN IMMEDIATELY IF THIS IS A STROKE, AMI OR CAROTID STENOSIS PATIENT WHEN THE LDL >100 (1ST OCCURENCE, THIS ADMISSION) Reference Interval: mg/dL mmol/L Optimal <100 <2.6Near/above optimal 100-129 2.6- 3.3Borderline High 130-159 3.4-4.1High 160-189 4.1-4.9Very High >=190 >=4.9========= This LDL result is a direct measurement.========= [id number] 07:09:00* Test Item Value Reference Range Interpretation Comments TROPONIN-I (test code = TROPI) 0.045 ng/mL 0-0.045 N [id number] 06:31:00* Test Item Value Reference Range Interpretation Comments GLYCOSYLATED HEMOGLOBIN (HA1C) (test code = GLYHGB) 7.5 % HbA1 4. 8-6.0 H ESTIMATED AVERAGE GLUCOSE (test code = EAG) 169 MG/DL CBC W/AUTO [id number] 06:18:00* Test Item Value Reference Range Interpretation Comments WHITE BLOOD CELL (test code = WBC) 9.2 K/mm3 4.5-12.5 N RED BLOOD CELL (test code = RBC) 3.14 mill/mm3 3.7-5.2 L HEMOGLOBIN (test code = HGB) 9.2 gram/dL 11.5-15.5 L HEMATOCRIT (test code = HCT) 28.8 % 36.0-46.0 L MEAN CELL VOLUME (test code = MCV) 91.7 fL 80-98 N MEAN CELL HGB (test code = MCH) 29.3 picogram 27.0-33.0 N MEAN CELL HGB CONCETRATION (test code = MCHC) 31.9 gram/dL 33.0-36. 0 L RED CELL DISTRIBUTION WIDTH (test code = RDW) 14.6 % 11.6-16. 2 N RED CELL DISTRIBUTION WIDTH SD (test code = RDW-SD) 49.0 fL 37 .0-51.0 N PLATELET COUNT (test code = PLT) 253 K/mm3 150-450 N MEAN PLATELET VOLUME (test code = MPV) 10.2 fL 6.7-11.0 N NEUTROPHIL % (test code = NT%) 72.4 % 39.0-69.0 H IMMATURE GRANULOCYTE % (test code = IG%) 0.4 % 0.0-5.0 N LYMPHOCYTE % (test code = LY%) 19.8 % 25.0-55.0 L MONOCYTE % (test code = MO%) 4.8 % 0.0-10.0 N EOSINOPHIL % (test code = EO%) 2.3 % 0.0-5.0 N BASOPHIL % (test code = BA%) 0.3 % 0.0-1.0 N NUCLEATED RBC % (test code = NRBC%) 0.0 % 0-0 N NEUTROPHIL # (test code = NT#) 6.67 K/mm3 1.8-7.7 N IMMATURE GRANULOCYTE # (test code = IG#) 0.04 x10 3/uL 0-0.03 H LYMPHOCYTE # (test code = LY#) 1.83 K/mm3 1.0-5.0 N MONOCYTE # (test code = MO#) 0.44 K/mm3 0-0.8 N EOSINOPHIL # (test code = EO#) 0.21 K/mm3 0.0-0.5 N BASOPHIL # (test code = BA#) 0.03 K/mm3 0.0-0.2 N NUCLEATED RBC # (test code = NRBC#) 0.00 K/mm3 0.0-0.1 N URINALYSIS [id number] 23:35:00* Test Item Value Reference Range Interpretation Comments UA COLOR (test code = COLU) STRAW YELLOW UA APPEARANCE (test code = APPU) CLEAR CLEAR UA GLUCOSE DIPSTICK (test code = DGLUU) 150 (1+) mg/dL NEGATIVE A UA BILIRUBIN DIPSTICK (test code = BILU) NEGATIVE mg/dL NEGATIVE UA KETONE DIPSTICK (test code = KETU) Negative mg/dL NEGATIVE UA SPECIFIC GRAVITY (test code = SGU) 1.016 1.001-1.035 UA BLOOD DIPSTICK (test code = YOSEF) Negative NEGATIVE UA PH DIPSTICK (test code = BETTY) 6.0 5.0-8.0 UA PROTEIN DIPSTICK (test code = PROU) >500 (3+) mg/dL NEGATIVE A UA UROBILINIOGEN DIPSTICK (test code = URO) NEGATIVE mg/dL NEGATIVE UA NITRITE DIPSTICK (test code = GERRY) NEGATIVE NEGATIVE UA LEUKOCYTE ESTERASE W REFLEX (test code = LEUUR) NEGATIVE NEG ATIVE UA WBC (test code = WBCU) 6-10 #/HPF 0-5 A UA RBC (test code = RBCU) 3-5 #/HPF 0-5 UA EPITHELIAL CELLS (test code = EPIU) FEW per HPF FEW UA BACTERIA (test code = BACU) FEW #/HPF NONE A UA MUCUS (test code = MUCU) FEW #/LPF FEW Urine Source? [facility] PROTEIN [id number] 23:35:00* Test Item Value Reference Range Interpretation Comments UR PROTEIN RANDOM (test code = PROTU) 1072.9 mg/dL 0.0-11.9 H Protein levels may be falsely elevated in patients withelevated level of aminoglycoside antibiotics in CSF and inhighly concentrated urine specimens. If false elevation issuspected, contact lab for alternated testing technique. Urine Source? [facility] CREATININE [id number] 23:35:00* Test Item Value Reference Range Interpretation Comments UR CREATININE RANDOM (test code = CREATU) 57.0 mg/dL 30-125 N Urine Source? [facility]INAL[facility] [id number] 23:08:00* Test Item Value Reference Range Interpretation Comments UA COLOR (test code = COLU) STRAW YELLOW UA APPEARANCE (test code = APPU) CLEAR CLEAR UA GLUCOSE DIPSTICK (test code = DGLUU) 150 (1+) mg/dL NEGATIVE A UA BILIRUBIN DIPSTICK (test code = BILU) NEGATIVE mg/dL NEGATIVE UA KETONE DIPSTICK (test code = KETU) Negative mg/dL NEGATIVE UA SPECIFIC GRAVITY (test code = SGU) 1.016 1.001-1.035 UA BLOOD DIPSTICK (test code = YOSEF) Negative NEGATIVE UA PH DIPSTICK (test code = BETTY) 6.0 5.0-8.0 UA PROTEIN DIPSTICK (test code = PROU) >500 (3+) mg/dL NEGATIVE A UA UROBILINIOGEN DIPSTICK (test code = URO) NEGATIVE mg/dL NEGATIVE UA NITRITE DIPSTICK (test code = GERRY) NEGATIVE NEGATIVE UA LEUKOCYTE ESTERASE W REFLEX (test code = LEUUR) NEGATIVE NEG ATIVE UA WBC (test code = WBCU) 6-10 #/HPF 0-5 A UA RBC (test code = RBCU) 3-5 #/HPF 0-5 UA EPITHELIAL CELLS (test code = EPIU) FEW per HPF FEW UA BACTERIA (test code = BACU) FEW #/HPF NONE A UA MUCUS (test code = MUCU) FEW #/LPF FEW Urine Source? [facility] PROTEIN [id number] 23:08:00* Test Item Value Reference Range Interpretation Comments UR PROTEIN RANDOM (test code = PROTU) mg/dL 0.0-11.9 Urine Source? [facility] CREATININE [id number] 23:08:00* Test Item Value Reference Range Interpretation Comments UR CREATININE RANDOM (test code = CREATU) mg/dL 30-125 Urine Source? [facility] METABOLIC [id number] 16:43:00* Test Item Value Reference Range Interpretation Comments SODIUM (test code = NA) 139 mmol/L 136-145 N POTASSIUM (test code = K) 5.6 mmol/L 3.5-5.1 H CHLORIDE (test code = CL) 116.0 mmol/L 98-107 H CARBON DIOXIDE (test code = CO2) 16.0 mmol/L 21-32 L ANION GAP (test code = GAP) 12.6 10-20 N GLUCOSE (test code = GLU) 108 mg/dL 74-106 H BLOOD UREA NITROGEN (test code = BUN) 45 mg/dL 7-18 H GLOMERULAR FILTRATION RATE (test code = GFR) 13 mL/min >=60 Estimated GFR by using Modified MDRD formula.Chronic kidney disease is defined as either kidney damageor GFR <60 mL/min/1.73 m2 for >3 months. CREATININE (test code = CREAT) 3.70 mg/dL 0.55-1.02 H Note change in reference range due to change in reagent. BUN/CREATININE RATIO (test code = BUN/CREA) 12.2 10-20 N CALCIUM (test code = CA) 6.5 mg/dL 8.5-10.1 L BASIC METABOLIC [id number] 16:39:00* Test Item Value Reference Range Interpretation Comments SODIUM (test code = NA) 139 mmol/L 136-145 N POTASSIUM (test code = K) 5.6 mmol/L 3.5-5.1 H CHLORIDE (test code = CL) 116.0 mmol/L 98-107 H CARBON DIOXIDE (test code = CO2) mmol/L 21-32 ANION GAP (test code = GAP) 10-20 GLUCOSE (test code = GLU) mg/dL 74-106 BLOOD UREA NITROGEN (test code = BUN) mg/dL 7-18 GLOMERULAR FILTRATION RATE (test code = GFR) mL/min >=60 CREATININE (test code = CREAT) mg/dL 0.55-1.02 BUN/CREATININE RATIO (test code = BUN/CREA) 10-20 CALCIUM (test code = CA) mg/dL 8.5-10.1 B-TYPE NATRIURETIC [id number] 10:52:00* Test Item Value Reference Range Interpretation Comments B-TYPE NATRIURETIC PEPTIDE (test code = BNP) 4060 pg/mL 0-100 H - XR CHEST 2 [id number] 10:09:00 Name: HEMANTH ARGUELLO [facility] : 1975 Age/S:43 /F [address] [facility] Unit#:[id number] Loc: [place] [address] Phys: Atiya Yeager MD Dis Date: PHONE #: [phone] Status: REG ER FAX #: [phone] Exam Date: 10/27/2018 Reason: cough and shortness of breath EXAMS: CPT CODE: [id number] XR CHEST 2 V 57408 HISTORY: Cough and shortness of breath. COMPARISON: None available. AP and lateral view of the chest: Small left and moderate right effusion with compressive lower lobe atelectasis on the left with patchy infiltrate. Cardiomegaly. IMPRESSION: Patchy left lower lobe infiltrate and moderate left effusion and subsegmental atelectasis. at 1009 Reported and signed by: Alphonse Santana M.D. CC: Atiya Yeager MD Technologist: USMAN MAYO, RT(R),CT Trnscrpt Data: 10/27/2018 (5589) [email or web address] Orig Print D/T: S: 10/27/2018 (7228) PAGE 1 Signed Report [id number] 10:06:00* Test Item Value Reference Range Interpretation Comments LIPASE (test code = LIP) 198 U/L 128-270 N [id number] 10:06:00* Test Item Value Reference Range Interpretation Comments MAGNESIUM (test code = MAG) 1.8 mg/dL 1.6-2.3 N [id number] 10:06:00* Test Item Value Reference Range Interpretation Comments CKMB (test code = CKMBT) 8.2 ng/mL 0.0-5.0 H [id number] 10:06:00* Test Item Value Reference Range Interpretation Comments TROPONIN-I (test code = TROPI) 0.03 ng/mL 0.00-0.056 N LACTIC [id number] 09:47:00* Test Item Value Reference Range Interpretation Comments LACTIC ACID (test code = LACT) 1.0 MMOL/L 0.4-1.9 N SPECIMEN 4+ HEMOLYSIS BASIC METABOLIC [id number] 09:39:00* Test Item Value Reference Range Interpretation Comments SODIUM (test code = NA) 140 mmol/L 135-148 N POTASSIUM (test code = K) 5.6 mmol/L 3.5-5.1 H CHLORIDE (test code = CL) 110 mmol/L 101-109 H CARBON DIOXIDE (test code = CO2) 19.6 mmol/L 21-32 L ANION GAP (test code = GAP) 16 mmol/L 10-20 N GLUCOSE (test code = GLU) 145 mg/dL 74-106 H BLOOD UREA NITROGEN (test code = BUN) 45 mg/dL 3-21 H GLOMERULAR FILTRATION RATE (test code = GFR) 13 mL/min >=60 Estimated GFR by using Modified MDRD formula.Chronic kidney disease is defined as either kidney damageor GFR <60 mL/min/1.73 m2 for >3 months. CREATININE (test code = CREAT) 3.77 mg/dL 0.55-1.3 H BUN/CREATININE RATIO (test code = BUN/CREA) 11.9 10-20 N CALCIUM (test code = CA) 6.8 mg/dL 8.4-10.2 L CBC W/AUTO [id number] 09:28:00* Test Item Value Reference Range Interpretation Comments WHITE BLOOD CELL (test code = WBC) 9.1 K/mm3 4.5-12.5 N RED BLOOD CELL (test code = RBC) 3.59 mill/mm3 3.7-5.2 L HEMOGLOBIN (test code = HGB) 10.6 gram/dL 11.5-15.5 L HEMATOCRIT (test code = HCT) 32.5 % 36.0-46.0 L MEAN CELL VOLUME (test code = MCV) 90.5 fL 80-98 N MEAN CELL HGB (test code = MCH) 29.5 picogram 27.0-33.0 N MEAN CELL HGB CONCETRATION (test code = MCHC) 32.6 gram/dL 33.0-36. 0 L RED CELL DISTRIBUTION WIDTH (test code = RDW) 14.5 % 11.6-16. 2 N RED CELL DISTRIBUTION WIDTH SD (test code = RDW-SD) 46.4 fL 39 .1-52.0 N PLATELET COUNT (test code = PLT) 274 K/mm3 150-450 N MEAN PLATELET VOLUME (test code = MPV) 10.0 fL 6.7-11.0 N NEUTROPHIL % (test code = NT%) 76.9 % 39.0-69.0 H LYMPHOCYTE % (test code = LY%) 15.6 % 25.0-55.0 L MONOCYTE % (test code = MO%) 4.1 % 0.0-10.0 N EOSINOPHIL % (test code = EO%) 3.2 % 0.0-5.0 N BASOPHIL % (test code = BA%) 0.2 % 0.0-1.0 N NEUTROPHIL # (test code = NT#) 7.03 K/mm3 1.8-7.7 N LYMPHOCYTE # (test code = LY#) 1.42 K/mm3 1.0-5.0 N MONOCYTE # (test code = MO#) 0.37 K/mm3 0-0.8 N EOSINOPHIL # (test code = EO#) 0.29 K/mm3 0.0-0.5 N BASOPHIL # (test code = BA#) 0.02 K/mm3 0.0-0.2 N MANUAL DIFF REQUIRED (test code = MDIFF) NO
== END | disposition home or self-care (01) ==
LOC: RAD 05:00 → OR 02-18 08:00 → EDSTATUS 02-18 11:30
PROVIDERS: ATTEND Surgery
DX: N18.6 End stage renal disease (principal); Z99.2 Dependence on renal dialysis; Z01.810 Encounter for preprocedural cardiovascular examination; Z01.812 Encounter for preprocedural laboratory examination; Z11.59 Encounter for screening for other viral diseases; Z79.84 Long term (current) use of oral hypoglycemic drugs; Z53.09 Procedure and treatment not carried out because of other contraindication
CPT/HCPCS: 87635; 93005

== ENCOUNTER 2020-04-02 18:09 | Emergency (ER) | payer OTHER ==
[~2020-04-02] VITALS: Ht 271.8 cm; Wt 63.5 kg
[~2020-04-02 18:09] MED LIST changes: +VELTASSA16.8 GM
[2020-04-02 21:45] VITALS: BP 122/64
--- NOTE | 2020-04-02 23:43 | Emergency Department Note ---
History of Present Illnes History of Present Illness Chief Complaint: General Medicine Complaints History of Present Illness This is a 44 year old female with recent positive COVID-19 test results presents to the ED for dialysis. Patient was instructed by the dialysis nurse to report to the ED for possible admission for continued dialysis. Patient seen at bedside NAD. Historian: Patient Arrival Mode: Car Onset (how long ago): second(s) Severity: mild Progression: unchanged Relieving factors: none Exacerbating factors: none Associated symptoms: Reports denies other symptoms Past Medical/Family History Physician Review I have reviewed the patient's past medical and family history. Any updates have been documented here. Past Medical History Recent Fever: No Clinical Suspicion of Infectio: No New/Unexplained Change in Ment: No Past Medical History: Hypertension, Diabetes, Hyperlipedemia Other Medical History: Pt has been seen by a physician and has been prescribed medication. Per the spouse, pt will not take the medications but every few days. And tells him she will take them later, when it has been discussed. Past Surgical History: Hysterectomy Social History Smoking Cessation: Never Smoker Counseling Performed: No Alcohol Use: None Any Illegal Drug Use: No Other Last Tetanus: UNKNOWN Any Pre-Existing Lines (PICC,: Yes Review of Systems Review of Systems Constitutional: Reports no symptoms EENTM: Reports no symptoms Cardiovascular: Reports no symptoms Respiratory: Reports no symptoms Gastrointestinal: Reports no symptoms Genitourinary: Reports no symptoms Musculoskeletal: Reports no symptoms Integumentary: Reports no symptoms Neurological: Reports no symptoms Psychological: Reports no symptoms Endocrine: Reports no symptoms Hematological/Lymphatic: Reports no symptoms Physical Exam Related Data Allergies: Coded Allergies: No Known Allergies (Unverified , 02/13/19) Triage Vital Signs Vital Signs Date Time Temp Pulse Resp B/P (MAP) Pulse Ox O2 Delivery O2 Flow Rate FiO2 04/02/20 18:48 99.9 77 16 162/78 98 Room Air Vital signs reviewed: Yes Physical Exam CONSTITUTIONAL Constitutional: Present well-developed, Present well-nourished HENT HENT: Present normocephalic, Present atraumatic, Present oropharynx clear/moist, Present nose normal HENT L/R: Present left ext ear normal, Present right ext ear normal EYES Eyes: Reports PERRL, Reports conjunctivae normal NECK Neck: Present ROM normal PULMONARY Pulmonary: Present effort normal, Present breath sounds normal CARDIOVASCULAR Cardiovascular: Present regular rhythm, Present heart sounds normal, Present capillary refill normal, Present normal rate GASTROINTESTINAL Abdominal: Present soft, Present nontender, Present bowel sounds normal GENITOURINARY Genitourinary: Present exam deferred SKIN Skin: Present warm, Present dry MUSCULOSKELETAL Musculoskeletal: Present ROM normal NEUROLOGICAL Neurological: Present alert, Present oriented x 3, Present no gross motor or sensory deficits PSYCHOLOGICAL Psychological: Present mood/affect normal, Present judgement normal Assessment & Plan Medical Decision Making MDM 44 yof presents to the ED for weakness with h/o of dialysis. Patient without complaints : Diff Dx : COVID-19 infection, hyperkalemia, Assessment & Plan Final Impression: (1) COVID-19 (2) End stage renal disease on dialysis Depart Disposition: HOME, SELF-CARE Last Vital Signs Date Time Temp Pulse Resp B/P (MAP) Pulse Ox O2 Delivery O2 Flow Rate FiO2 04/02/20 18:48 99.9 77 16 162/78 98 Room Air Home Meds Reported Medications Patiromer Calcium Sorbitex (Veltassa) 16.8 Gm Powd.pack 03/13/20 Glipizide (GLIPIZIDE ER) 5 Mg Tab.er.24, 5 MG PO DAILY 02/07/20 Atorvastatin Calcium* (LIPITOR*) 10 Mg Tablet, 40 MG PO HS, TAB 02/07/20 Losartan Potassium (LOSARTAN POTASSIUM) 100 Mg Tablet, 100 MG PO DAILY, TAB 02/07/20 Metoprolol Succinate (METOPROLOL SUCCINATE) 50 Mg Tab.er.24h, 50 MG PO DAILY, MG 02/07/20 Furosemide (LASIX) 40 Mg Tablet, 20 MG PO DAILY, #30 TAB 02/21/19 Carvedilol (COREG) 12.5 Mg Tab, 25 MG PO DAILY 02/21/19 SCHUYLER GALDAMEZ DO Apr 02, 2020 23:43
== END 2020-04-02 23:51 | disposition home or self-care (01) ==
LOC: ER 18:34
DX: U07.1 COVID-19 (principal); I12.0 Hypertensive chronic kidney disease with stage 5 chronic kidney disease or end stage renal disease; E11.22 Type 2 diabetes mellitus with diabetic chronic kidney disease; N18.6 End stage renal disease; Z99.2 Dependence on renal dialysis; E78.5 Hyperlipidemia, unspecified
CPT/HCPCS: 99282

== ENCOUNTER → 2020-07-31 | Day surgery (SDC) | payer BC, OTHER ==
--- NOTE | 2020-07-15 16:50 | Diagnostic Imaging Report ---
Exam: CHEST 2 VIEWS Date: 07/15/2020 4:47 PM INDICATION: ^[id number] ^[id number] ^PRE OP Comparison: 02/15/2019 FINDINGS: Lines/Tubes:Right internal jugular tunneled hemodialysis catheter is noted with tip projecting over the mid right atrium. Lungs:The lungs are well inflated. No focal consolidation or pulmonary edema. Pleura:No pleural effusion. No pneumothorax. Heart/Mediastinum:Cardiomediastinal silhouette is mildly enlarged. Mild central vascular congestion is noted. Bones/Soft Tissues: No acute osseous abnormality. Upper abdomen: Unremarkable. IMPRESSION: Negative for focal consolidation. Signed by: Pete Foster MD on 07/15/2020 4:47 PM
[~2020-07-31] MED LIST changes: +BUPIVACAINE HCL 0.5% INJ 30 ML VIAL INJ ONE; +CEFAZOLIN SOD 1 GM VIAL ONE; +HEPARIN SOD (PORCINE) 1000 UNIT/ML 30ML ONE; +HEPARIN SOD (PORCINE) 5,000 UNIT/ML VIAL ONE; +HYDRALAZINE HCL25 MG PO; +INSULIN REGULAR, HUMAN 100 UNIT/1 ML 3ML VIAL ONE; +LIDOCAINE HCL 2% LOCAL INJ 5 ML SDV VIAL INJ ONE; +METOCLOPRAMIDE HCL 10 MG/2ML VIAL ONE; +ONDANSETRON HCL INJ 2MG/ML 2ML 2 MG/ML VIAL ONE; +PROPOFOL IV EMULSION 10 MG/ML 20 ML VIAL ONE; +PROTAMINE SULFATE 10 MG/ML 5 ML VIAL ONE; +SEVOFLURANE INHAL SOLN 250 ML PEN BTL ONE; +SODIUM CHLORIDE 0.9% 500ML 500 ML ONE
[2020-07-31 08:59] LABS: BASOPHILS % 0.5 % (0.0-1.0); EOSINOPHILS % 13.6 % (0.0-6.0); HEMATOCRIT 32.8 % (34.2-44.1); HEMOGLOBIN 10.5 g/dL (12.0-16.0); LYMPHOCYTES # (AUTO) 1.7 (1.0-3.2); LYMPHOCYTES % 22.9 % (18.0-39.1); MEAN CORPUSCULAR HEMOGLOBIN 30.5 pg (28-32); MEAN CORPUSCULAR VOLUME 95.3 fL (81-99); MONOCYTES # (AUTO) 0.5 (0.2-0.8); MONOCYTES % 6.8 % (4.4-11.3); NEUTROPHILS # (AUTO) 4.1 (2.1-6.9); NEUTROPHILS % 55.8 % (38.7-80.0); PLATELET COUNT 114 x10e3/uL (140-360); RED BLOOD COUNT 3.44 x10e6/uL (3.6-5.1); RED CELL DISTRIBUTION WIDTH 13.7 % (11.7-14.4)
[2020-07-31 09:11] LABS: INR 0.98; PROTHROMBIN TIME 13.5 seconds (11.9-14.5)
[2020-07-31 09:12] LABS: PARTIAL THROMBOPLASTIN TIME 32.6 seconds (23.8-35.5)
[2020-07-31 09:14] LABS: ANION GAP 16.2 mmol/L (8-16); CALCIUM 7.5 mg/dL (8.4-10.2); CREATININE, SERUM 5.17 mg/dL (0.57-1.11); POTASSIUM 5.2 mmol/L (3.5-5.1)
[2020-07-31 13:50] VITALS: BP 148/76
--- NOTE | 2020-07-31 13:54 | Operative Report ---
DATE OF PROCEDURE: 07/31/2020 SURGEON: William Gay MD PREOPERATIVE DIAGNOSES: End-stage renal failure, [id number] diabetes, and need for permanent dialysis access. POSTOPERATIVE DIAGNOSIS: End-stage renal failure, [id number] diabetes, and need for permanent dialysis access. OPERATIVE PROCEDURE: Revision of left brachial artery to basilic vein AV fistula with transposition to subcutaneous location and left brachial artery to basilic vein AV fistula revision with translocation to subcutaneous tissue. CLINICAL ORTHOPTIST: Nursing. ANESTHESIA: General endotracheal. INDICATIONS: This is a 45-year-old lady with end-stage renal failure. She has a left brachial artery to basilic vein AV fistula in place that has matured well. It is too deep for easy access. Revision with translocation to a subcutaneous position has been recommended. Prior to surgery, I described the operation to her. I told her that the risks of surgery would include , bleeding, infection, heart attack, stroke, pneumonia, prolonged ICU stay, permanent hand/limb muscle or nerve damage, hand/limb amputation, hand/limb chronic pain, a 10% to 15% chance that the fistula might occlude during surgery and require revision or replacement, etc. She stated that she understood, no further questions and wanted to proceed. She came to the operating room holding area by herself per the COVID-19 instructions. FINDINGS: The fistula had enlarged nicely. translocation to a subcutaneous position and revision uneventful. An excellent thrill and bruit at conclusion of surgery. PROCEDURE IN DETAIL: The patient was taken to the operative room on July 31, 2020 and was placed supine upon the operating room table. General endotracheal anesthesia was smoothly induced. The left upper extremity was sterilely prepped and draped in the usual fashion using alcohol prewash and Betadine scrub and solution. Time-out was performed appropriately. The old incision over the medial aspect of the elbow was reopened. The outflow of basilic vein was isolated and controlled. It was then dissected from its surrounding tissue and branches were ligated. It had enlarged well and is approximately 3-4 mm in diameter. A second incision was made in the axilla. The outflow basilic vein was entirely mobilized. A subcutaneous tunnel was made. The outflow vein was translocated to a position on top of the triceps muscle. There was an excellent thrill and bruit. The wound was closed in layers using absorbable suture. Local anesthesia infiltrated. Sterile dressings were applied. Sponge, instrument, and needle counts were correct both prior to and after wound closure. Independent search of the operative field by both operating surgeons and nurse revealed no retained instruments or sponges. The patient tolerated the procedure well and taken to recovery area in stable condition. MD CHUY Broderick/REY /[id number]
== END | disposition home or self-care (01) ==
LOC: OR 07:59
PROVIDERS: ATTEND Surgery
DX: E11.22 Type 2 diabetes mellitus with diabetic chronic kidney disease (principal); I12.0 Hypertensive chronic kidney disease with stage 5 chronic kidney disease or end stage renal disease; N18.6 End stage renal disease; Z01.810 Encounter for preprocedural cardiovascular examination; Z01.812 Encounter for preprocedural laboratory examination; Z01.818 Encounter for other preprocedural examination; Z11.59 Encounter for screening for other viral diseases; Z99.2 Dependence on renal dialysis; Z79.84 Long term (current) use of oral hypoglycemic drugs
CPT/HCPCS: 36415; 36832; 71046; 80048; 82948; 84702; 85025; 85610; 85730; 93005; J0690; J1644; J2001; J2405; J2704; J2765; J7040; U0002 ×2; J1817; J2720